=== PATIENT | male | born 1960 | race Caucasian/White ===

== ENCOUNTER → 2019-06-22 12:09 | Outpatient (BNVA) | payer OTHER, SELFPAY | PROVIDERS: Family Provider Nurse Practitioner; PCP Nurse Practitioner; Visit Provider Nurse Practitioner Family | DX: R07.9 Chest pain, unspecified (principal); E11.9 Type 2 diabetes mellitus without complications; Z23 Encounter for immunization; M54.5 Low back pain; E55.9 Vitamin D deficiency, unspecified; F41.9 Anxiety disorder, unspecified; I10 Essential (primary) hypertension; G89.29 Other chronic pain; M25.562 Pain in left knee; M25.512 Pain in left shoulder; K58.0 Irritable bowel syndrome with diarrhea; M1A.09X0 Idiopathic chronic gout, multiple sites, without tophus (tophi); F32.9 Major depressive disorder, single episode, unspecified; R39.11 Hesitancy of micturition; G47.9 Sleep disorder, unspecified | CPT/HCPCS: 80053; 80061; 81003; 83036; 84443; 85025 ==

== ENCOUNTER 2019-06-28 07:39 | Outpatient (CLI) | payer OTHER, SELFPAY ==
--- NOTE | 2019-06-28 08:04 | XR_ITS ---
WS: [id number] LEFT KNEE: 3 VIEW(S) TECHNIQUE: AP, oblique(s) and lateral. HISTORY: chronic left knee pain COMPARISON: None available. No fracture or dislocation. No joint space narrowing or osteophytes. No joint effusion. No soft tissue abnormality. XR/XR knee LT 3V* [id number] IMPRESSION: Normal LEFT knee.
--- NOTE | 2019-06-28 08:04 | XRR_ITS ---
PROCEDURE INFORMATION: Exam: XR Chest, 2 Views Exam date and time: 06/28/2019 8:29 AM Age: 58 years old Clinical indication: Chest pain; Type not specified; Patient HX: Knot on left knee, shoulder pain, no chest complaints per patient TECHNIQUE: Imaging protocol: XR of the chest Views: 2 views. COMPARISON: No relevant prior studies available. FINDINGS: Lungs: Unremarkable. No consolidation. Pleural space: Unremarkable. No pleural effusion. No pneumothorax. Heart/Mediastinum: Unremarkable. No cardiomegaly. Bones/joints: Unremarkable. XR/XR chest 2V* [id number] IMPRESSION: No acute findings.
--- NOTE | 2019-06-28 08:04 | XR_ITS ---
WS: [id number] LEFT SHOULDER: 2 VIEW(S) TECHNIQUE: Internal and external rotation. HISTORY: chronic left shoulder pain COMPARISON: None available. No fracture or dislocation or soft tissue abnormality. Mild narrowing of the AC joint. There is also very mild narrowing of the glenohumeral joint. XR/XR shoulder LT min 2V* [id number] IMPRESSION: Mild AC joint and glenohumeral joint arthritis.
== END 2019-06-28 07:40 | disposition home or self-care (01) ==
LOC: RAD 07:45
PROVIDERS: Family Provider Nurse Practitioner; PCP Nurse Practitioner; Visit Provider Nurse Practitioner Family
DX: M13.812 Other specified arthritis, left shoulder (principal); M25.562 Pain in left knee; G89.29 Other chronic pain; R07.9 Chest pain, unspecified
CPT/HCPCS: 71046; 73030; 73562

== ENCOUNTER 2019-07-19 11:45 | Outpatient (CLI) | payer OTHER, SELFPAY ==
--- NOTE | 2019-07-19 16:00 | MR_ITS ---
WS: [id number] MRI of the left knee, 07/19/2019 Clinical Data: knee pain Comparison: None. Findings: The anterior and posterior cruciate ligaments are intact without tear. The medial and lateral meniscu s show no tears. There are no bone bruises present. There are no osteochondral fractures. The medial and lateral collateral ligaments are intact without strain or tear. The quadriceps tendon and patellar tendon show no abnormalities. The patella is intact without displacement or chondromalac ia. No Hernandez's cyst is seen. There are varicose veins in the anterior lateral aspect of the subcutane ous tissue of the knee joint MR/MR knee LT wo con* [id number] Impression: 1. Negative for ligamentous or meniscal tears. 2. Negative for bone bruise or osteochondral fracture. 3. 3. Varicose veins in anterior medial subcutaneous tissue of the left knee.
== END 2019-07-19 11:46 | disposition home or self-care (01) ==
LOC: RADSHAW 11:45
PROVIDERS: Family Provider Nurse Practitioner; PCP Nurse Practitioner Family; Visit Provider Orthopaedic Surgery
DX: M23.92 Unspecified internal derangement of left knee (principal); I83.92 Asymptomatic varicose veins of left lower extremity
CPT/HCPCS: 73721

== ENCOUNTER 2019-10-12 12:09 | Outpatient (CLI) | payer OTHER, SELFPAY ==
--- NOTE | 2019-10-12 12:14 | ECG_ITS ---
NAME OF STUDY: TREADMILL STRESS TEST INDICATION: Chest Pain EXERCISE DATA: The patient was exercised by Jose Guadalupe protocol. Baseline heart rate was 95 beats per minute. Baseline blood pressure was 112/68 millimeters of mercury. Target heart rate was 164 beats per minute. Maximum heart rate achieved was 148, which was 90 % of the target heart rate. Maximum blood pressure was 163/83 millimeters of mercury. Total exercise time was 4 minutes 48 seconds. Maximum METs achieved was 7.0, maximum VO2 was 24.5. The reason for ending the test was maximum effort achieved. The patient complained of shortness of breath during the stress test, which then resolved at the end of the test. ELECTROCARDIOGRAM: BASELINE: Sinus rhythm, normal axis, no significant ST-T changes at the baseline noted. EXERCISE: At the peak exercise level, no significant ST-T changes suggestive of ischemia noted. RECOVERY: During the recovery period, heart rate dropped appropriately. No significant ST-T changes in the recovery suggestive of ischemia noted. CONCLUSION: 1. Exercise capacity poor. 2. Heart rate response was appropriate. 3. Blood pressure response was appropriate. 4. Symptoms not suggestive of ischemia. 5. Electrocardiogram portion of the stress test was not suggestive of ischemia. 6. Nuclear scan will be documented separately. Please note that due to underachievement METs and poor exercise capacity specificity and sensitivity EKG portion of the stress is of low probability Electronically Signed On 10-13-2019 18:17:18 CDT by Bassam Davis M.D. [id number]
[2019-10-12 12:16] VITALS: BMI 38.2
[2019-10-12 12:47] VITALS: BP 144/83; PULSE 99
== END 2019-10-12 12:10 | disposition home or self-care (01) ==
LOC: CDL 12:09
PROVIDERS: PCP Nurse Practitioner; Visit Provider Internal Medicine Cardiovascular Disease
DX: R07.9 Chest pain, unspecified (principal)
CPT/HCPCS: 93017

== ENCOUNTER → 2019-11-23 10:45 | Outpatient (BNVA) | payer OTHER, SELFPAY | PROVIDERS: PCP Nurse Practitioner; Visit Provider Nurse Practitioner Family | DX: E11.69 Type 2 diabetes mellitus with other specified complication (principal); M1A.09X0 Idiopathic chronic gout, multiple sites, without tophus (tophi); K58.0 Irritable bowel syndrome with diarrhea; I10 Essential (primary) hypertension; R07.9 Chest pain, unspecified; G25.81 Restless legs syndrome; F41.9 Anxiety disorder, unspecified; F32.9 Major depressive disorder, single episode, unspecified; N41.0 Acute prostatitis; R39.11 Hesitancy of micturition | CPT/HCPCS: 80053; 80061; 81000; 83036; 84443; 85025 ==

== ENCOUNTER → 2020-05-03 16:23 | Outpatient (BNVA) | payer OTHER, SELFPAY | PROVIDERS: Absent Provider Family Medicine; PCP Nurse Practitioner; Visit Provider Nurse Practitioner | DX: E11.69 Type 2 diabetes mellitus with other specified complication (principal); M10.9 Gout, unspecified; M1A.09X0 Idiopathic chronic gout, multiple sites, without tophus (tophi); E55.9 Vitamin D deficiency, unspecified; K58.0 Irritable bowel syndrome with diarrhea; I10 Essential (primary) hypertension; F41.9 Anxiety disorder, unspecified; G25.81 Restless legs syndrome; R39.11 Hesitancy of micturition | CPT/HCPCS: 80053; 80061; 82043; 82306; 83036; 84443; 84550 ==

== ENCOUNTER 2020-10-05 11:41 | Outpatient (CLI) | payer OTHER, SELFPAY ==
--- NOTE | 2020-10-05 11:55 | XR_ITS ---
WS: [id number] Cervical spine, 4 views, 10/05/2020 Clinical Data: M54.2 - Cervicalgia Comparison: Cervical spine, 07/23/2010. Findings: No compression fractures are seen. The disc heights are normal. There are calcifications in the anterior longitudinal ligaments at C4-C5, C5-C6 and C6-C7. There is no prevertebral soft tissue swelling. The odontoid is unremarkable. The soft tissues of the neck and the lung apices are normal. XR/XR cervical spine 3V* [id number] Impression: Calcification of the anterior longitudinal ligaments from C4 through C7.
== END 2020-10-05 11:42 | disposition home or self-care (01) ==
PROVIDERS: PCP Nurse Practitioner; Visit Provider Nurse Practitioner Family
DX: M54.2 Cervicalgia (principal); R29.898 Other symptoms and signs involving the musculoskeletal system
CPT/HCPCS: 72040; 80053; 80061; 82306; 83036; 84443; 84484; 85025; G0103

== ENCOUNTER 2020-12-24 14:06 | Outpatient (CLI) | payer OTHER, SELFPAY ==
[2020-12-24 14:05] VITALS: BP 121/73; PULSE 76; RESP 18; TEMP 36.8; O2SAT 96; BMI 40.3
[2020-12-24 14:25] VITALS: BP 117/75; PULSE 77; RESP 17; TEMP 36.6; O2SAT 94
[2020-12-24 15:25] VITALS: BP 118/73; PULSE 72; RESP 18; TEMP 36.6; O2SAT 94
--- NOTE | 2020-12-24 15:58 | AMB.MCA ---
Patient Information Symptom onset date: 12/22/20 Severity: mild Treatment prior to arrival: none [facility] COVID test results: No Data to Display outside results available, scanned Criteria/Plan Inclusion/Exclusion Criteria age >/= 12 years, weight >/= 40kg /88lbs, symptom onset less than 10 days ago and + direct Sars-Cov-2 test less than 7-10 days ago diabetes not requiring hospitalization, not requiring oxygen (if not chronically on oxygen) and no increase oxygen requirement (if chronically on oxygen) Patient education patient/caregiver received/reviewed fact sheet, Emergency Use Authorization/unapproved drug status discussed with patient/caregiver, alternatives to this treatment discussed with patient/caregiver, risks and benefits of medication reviewed with patient/caregiver, patient/caregiver given opportunity for questions, which were answered and patient/caregiver consents to receiving Monoclonal Antibody Treatment Plan for treatment Meets criteria for Monoclonal Antibody infusion Ordering Monoclonal Antibody infusion for today
== END 2020-12-24 14:07 | disposition home or self-care (01) ==
PROVIDERS: PCP Nurse Practitioner; Visit Provider Hospitalist
DX: U07.1 COVID-19 (principal)
CPT/HCPCS: 96365

== ENCOUNTER → 2021-01-02 13:59 | Outpatient (BNVA) | payer OTHER, SELFPAY | PROVIDERS: PCP Nurse Practitioner; Visit Provider Nurse Practitioner | DX: F41.9 Anxiety disorder, unspecified (principal); F32.9 Major depressive disorder, single episode, unspecified; G25.81 Restless legs syndrome; M1A.09X0 Idiopathic chronic gout, multiple sites, without tophus (tophi); E11.69 Type 2 diabetes mellitus with other specified complication; R39.11 Hesitancy of micturition; Z12.11 Encounter for screening for malignant neoplasm of colon; E55.9 Vitamin D deficiency, unspecified; I10 Essential (primary) hypertension; K58.0 Irritable bowel syndrome with diarrhea | CPT/HCPCS: 80053; 80061; 82306; 83036; 84443; 85025 ==

== ENCOUNTER 2021-01-16 10:42 | Outpatient (CLI) | payer OTHER, SELFPAY ==
--- NOTE | 2021-01-16 11:00 | CT_ITS ---
WS: [id number] CTA HEAD AND NECK TECHNIQUE: Contrast enhanced CTA of the head and neck with coronal and sagittal reformatted images an d maximum intensity projection (MIP) images. NASCET criteria utilized. CLINICAL INFORMATION: R41.3 - Other amnesia COMPARISON: None. DLP: 2773.[address] scans at [facility] use at least one of these dose optimization techniques: automat ed exposure control; mA and/or kV adjustment per patient size (includes targeted exams where dose is matched to clinical indication); or iterative reconstruction. FINDINGS: Mild small vessel changes. Mild parenchymal volume loss. Intracranial vascular calcification. No evid ence of intracranial hemorrhage or mass effect. Mastoid air cells and paranasal sinuses are well aera sandoval. Small retention cyst right sphenoid sinus. A few prominent cervical lymph nodes nonspecific but likely reactive. RIGHT: Right common carotid artery is patent. No significant right ICA stenosis. Minimal calcified at heromatous disease right carotid bulb. No significant right ICA stenosis. Right ICA is patent to the skull base. LEFT: Left common carotid artery is patent. Mild to moderate calcified atheromatous plaque left carot id bulb extending into the ICA with less than 50% stenosis. Left ICA is patent to the skull base. INTRACRANIAL CTA: Left dominant vertebral artery. Smaller but patent right vertebral artery. Basilar artery is patent. Normal vascularity to the [employer] territory bilaterally. Both ICAs are patent at the skull base with cavernous carotid calcification. Normal vascularity to th e ANNABELLA and MCA territories bilaterally. No evidence of flow-limiting stenosis or aneurysm. CT/CT angio headneck* [id number] IMPRESSION: 1. No evidence of intracranial hemorrhage or mass effect on the noncontrast he ad CT. 2. No significant right ICA stenosis. Tiny amount of calcification right carot id bulb. 3. Left ICA stenosis less than 50%. Mild to moderate calcified atheromatous pl aque left carotid bulb and proximal ICA. 4. Left dominant vertebral artery. Both vertebral arteries are patent. 5. No flow-limiting intracranial stenosis. Unremarkable intracranial CTA.
[2021-01-16] MEDS: iohexol 350 mg/mL 100 mL Btl IV (11:09)
== END 2021-01-16 10:43 | disposition home or self-care (01) ==
PROVIDERS: PCP Nurse Practitioner; Visit Provider Nurse Practitioner
DX: R41.3 Other amnesia (principal); R55 Syncope and collapse; I65.22 Occlusion and stenosis of left carotid artery
CPT/HCPCS: 70496; 70498; Q9967

== ENCOUNTER 2021-01-29 06:00 | Outpatient (RCR) | payer OTHER, SELFPAY | END 2021-02-15 23:59 | disposition home or self-care (01) | LOC: SPT 06:00 | PROVIDERS: PCP Nurse Practitioner; Referring Provider Nurse Practitioner; Visit Provider Nurse Practitioner | DX: R29.6 Repeated falls (principal) | CPT/HCPCS: 97110; 97112; 97162 ==

== ENCOUNTER 2021-02-16 06:00 | Outpatient (RCR) | payer OTHER, SELFPAY | END 2021-03-18 23:59 | disposition home or self-care (01) | LOC: SPT 06:00 | PROVIDERS: PCP Nurse Practitioner; Referring Provider Nurse Practitioner; Visit Provider Nurse Practitioner | DX: R29.6 Repeated falls (principal) | CPT/HCPCS: 97110; 97112 ==

== ENCOUNTER 2021-03-19 06:00 | Outpatient (RCR) | payer OTHER, SELFPAY | END 2021-04-17 23:59 | disposition home or self-care (01) | LOC: SPT 06:00 | PROVIDERS: PCP Nurse Practitioner; Referring Provider Nurse Practitioner; Visit Provider Nurse Practitioner | DX: R29.6 Repeated falls (principal) | CPT/HCPCS: 97110; 97112 ==

== ENCOUNTER 2021-04-18 12:31 | Outpatient (RCR) | payer OTHER, SELFPAY | END 2021-05-17 16:51 | disposition home or self-care (01) | LOC: SPT 12:31 | PROVIDERS: PCP Nurse Practitioner; Referring Provider Nurse Practitioner; Visit Provider Nurse Practitioner | DX: R29.6 Repeated falls (principal) | CPT/HCPCS: 97110; 97112 ==

== ENCOUNTER → 2021-05-04 10:42 | Outpatient (BNVA) | payer OTHER, SELFPAY | PROVIDERS: PCP Nurse Practitioner; Visit Provider Urology | DX: R36.1 Hematospermia (principal); N40.1 Benign prostatic hyperplasia with lower urinary tract symptoms | CPT/HCPCS: 81003 ==

== ENCOUNTER 2021-12-20 11:48 | Outpatient (CLI) | payer OTHER, SELFPAY ==
[2021-12-20 12:44] LABS: Creatinine Urine, Random 262 mg/dL (39-259)
[2021-12-20 12:57] LABS: Microalbum Creatinine Ratio Ur 405 mg/dL (0-20); Microalbumin Random Urine 106 ug/dL (0-20)
[2021-12-20 13:11] LABS: 25 Hydroxy Vitamin D 62 ng/mL (30-100); Alanine Aminotransferase 66 U/L (0-41); Albumin Level 4.2 g/dL (3.5-5.2); Alkaline Phosphatase 113 IU/L (40-130); Anion Gap 16.1 (5-19); Aspartate Amino Transferase 43 U/L (0-40); Blood Urea Nitrogen 15 mg/dL (6-20); Calcium 9.6 mg/dL (8.5-10.5); Carbon Dioxide 23 mmol/L (22-29); Chloride 100 mmol/L (98-107); Chol HDL Ratio 6.26 mg/dL (1.0-5.00); Cholesterol 213 mg/dL (0-200); Globulin 3.1 g/dL (1.3-4.6); Glomerular Filtration Rate 76.5 mL/min (90-130); Glucose 121 mg/dL (65-115); HDL Cholesterol 34 mg/dL (60-100); LDL Cholesterol Calculated 140 mg/dL (50-129); Osmolality Calculated 282 mOsm/kg (285-295); Potassium 4.1 mmol/L (3.5-5.1); Sodium 135 mmol/L (136-145); Total Bilirubin 0.6 mg/dL (0.15-1.2); Total Protein 7.3 g/dL (6.6-8.7); Triglycerides 195 mg/dL (0-150); Uric Acid 3.8 mg/dL (3.4-7.0); VLDL Cholestrol Calculation 39 mg/dL (0-30)
[2021-12-20 13:13] LABS: Estmated Average Glucose 128; Hemoglobin A1C 6.1 % (4.0-6.0)
== END 2021-12-20 11:49 | disposition home or self-care (01) ==
LOC: LAB 11:51
PROVIDERS: PCP Nurse Practitioner; Visit Provider Nurse Practitioner
DX: E11.69 Type 2 diabetes mellitus with other specified complication (principal); M1A.09X0 Idiopathic chronic gout, multiple sites, without tophus (tophi)
CPT/HCPCS: 80053; 80061; 82044; 82306; 83036; 84550

== ENCOUNTER → 2022-04-18 16:17 | Outpatient (BNVA) | payer OTHER, SELFPAY | PROVIDERS: PCP Nurse Practitioner; Visit Provider Nurse Practitioner | DX: I10 Essential (primary) hypertension (principal); E11.69 Type 2 diabetes mellitus with other specified complication; F41.9 Anxiety disorder, unspecified; G25.81 Restless legs syndrome; F32.9 Major depressive disorder, single episode, unspecified; Z87.442 Personal history of urinary calculi; E78.2 Mixed hyperlipidemia; R26.81 Unsteadiness on feet; E55.9 Vitamin D deficiency, unspecified; Z23 Encounter for immunization; G20 Parkinson's disease | CPT/HCPCS: 80053; 80061; 81000; 82043; 82306; 82607; 83036; 84443 ==

== ENCOUNTER → 2022-07-22 15:58 | Outpatient (BNVA) | payer OTHER, SELFPAY | PROVIDERS: PCP Nurse Practitioner; Visit Provider Nurse Practitioner | DX: Z87.442 Personal history of urinary calculi (principal); I10 Essential (primary) hypertension; M1A.09X0 Idiopathic chronic gout, multiple sites, without tophus (tophi); E78.2 Mixed hyperlipidemia; G25.81 Restless legs syndrome; N18.2 Chronic kidney disease, stage 2 (mild); E11.69 Type 2 diabetes mellitus with other specified complication | CPT/HCPCS: 80053; 81000; 83036; 85025 ==

== ENCOUNTER 2022-09-02 12:28 | Outpatient (CLI) | payer OTHER, SELFPAY ==
--- NOTE | 2022-09-02 12:43 | XR_ITS ---
WS: [id number] Left shoulder, 3 views, 09/02/2022 Clinical Data: M25.512 - Pain in left shoulder Comparison: Left shoulder, 06/28/2019. Findings: No fractures or dislocations are seen. The AC joint demonstrates mild narrowing.. There is minimal os teoarthritic change of the inferior glenoid rim. The adjacent left clavicle, left scapula and ribs ar e normal. The soft tissues are unremarkable. 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
--- NOTE | 2022-09-02 12:45 | USCV_ITS ---
Alec Parr Age: 61 Gender: M : 1960 Exam Date: 09/02/2022 13:31 Ordering Phys: Mendoza Kelley MD ([email or web address]) Technologist: Exam Location: [facility] [place] Indication: BP: / HR: 59 Rhythm: Sinus Technical Quality: Adequate MEASUREMENTS (Male / Female) Normal Values 2D ECHO LV Diastolic Diameter PLAX 4.1 cm 4.2 - 5.9 / 3.9 - 5.3 cm LV Systolic Diameter PLAX 2.9 cm IVS Diastolic Thickness 1.1 cm 0.6 - 1.0 / 0.6 - 0.9 cm IVS Systolic Thickness 1.9 cm LVPW Diastolic Thickness 1.1 cm 0.6 - 1.0 / 0.6 - 0.9 cm LVPW Systolic Thickness 1.5 cm LVOT Diameter 2.0 cm LV Ejection Fraction 2D Teich 42.9 % LV Ejection Fraction MOD 2C 67.9 % LV Ejection Fraction 2C AL 68.6 % LA Diameter 3.6 cm IVC Diameter 1.1 cm M-MODE Aortic Annulus Diameter 3.5 cm LA Ao Ratio MM 1.1 MV E Point Septal Separation 1.1 cm DOPPLER AV Peak Velocity 118.0 cm/s LVOT Peak Velocity 102.0 cm/s AV Area Cont Eq vti 2.8 cm squared AV Area Cont Eq pk 2.8 cm squared MV Area PHT 4.0 cm squared Mitral E to A Ratio 1.1 MV E' Velocity 49.5 cm/s Mitral E to MV E' Ratio 9.5 Mitral E to LV E' Lateral Ratio 9.3 Mitral E to LV E' Septal Ratio 9.8 TR Peak Velocity 149.7 cm/s TR Peak Gradient 9.0 mmHg TV Peak E Velocity 88.0 cm/s Right Atrial Pressure 3.0 mmHg Pulmonary Artery Systolic Pressu 12.0 mmHg PV Peak Velocity 85.0 cm/s FINDINGS Left Ventricle Left ventricle is normal in size. LV systolic function is normal with EF of 55 to 60%. No regional wall motion abnormalities are seen. Diastolic function is normal. Right Ventricle Normal in size and function. Right Atrium Normal in size Left Atrium Normal in size Mitral Valve Structurally normal mitral valve. Mild mitral regurgitation. Aortic Valve Aortic valve is grossly normal. No significant stenosis or regurgitation. Tricuspid Valve Mild tricuspid regurgitation. Insufficient TR jet to calculate RVSP Pulmonic Valve Not well-visualized Pericardium Normal Aorta Normal in size IVC Appears to be normal CONCLUSIONS LV systolic function normal with EF of 55 to 60% Diastolic function is normal. Mild tricuspid regurgitation. Mild mitral regurgitation. No comparison studies are available Kevin Nolan MD (Electronically Signed) Final Date: 14 September 2022 15:29 S
== END 2022-09-02 12:29 | disposition home or self-care (01) ==
LOC: RAD 12:37
PROVIDERS: PCP Nurse Practitioner; Visit Provider Specialist
DX: M25.512 Pain in left shoulder (principal); I10 Essential (primary) hypertension; G47.33 Obstructive sleep apnea (adult) (pediatric); Z99.89 Dependence on other enabling machines and devices; E78.2 Mixed hyperlipidemia; R06.02 Shortness of breath; W18.30XA Fall on same level, unspecified, initial encounter; Y93.9 Activity, unspecified; Y92.019 Unspecified place in single-family (private) house as the place of occurrence of the external cause
CPT/HCPCS: 73030; 93306

== ENCOUNTER 2022-09-13 10:31 | Outpatient (CLI) | payer OTHER, SELFPAY ==
[2022-09-13 10:58] VITALS: BMI 40.3
--- NOTE | 2022-09-13 11:03 | ECG_ITS ---
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 Interpretive Statements NAME OF STUDY: LEXISCAN SESTAMIBI STRESS TEST INDICATION: Chest Pain/sob, PROCEDURE: At the baseline, the EKG revealed normal sinus rhythm with a poor R wave progression. Nonspecific T wave changes. The baseline heart was 61 bpm with a blood pressue of 124/80 mm of Hg Lexiscan was infused over a period of 20 seconds. A total of 0.4 milligrams of Lexiscan was infused. The stress phase was continued for a total of 5 minutes. Heart rate at the end of the stress phase was 74 bpm with a blood pressure 118/78 mm of Hg. The EKG at the peak infusion revealed no significant changes. Sestamibi was injected 20 seconds after the Lexiscan infusion. Heart rate at the end of the recovery phase was 72 bpm with a blood pressure of 111/76mm of Hg. CONCLUSION: 1. No significant EKG changes with the LexiScan infusion 2. No LexiScan induced chest pain or cardiac arrhythmia 3. Normal blood pressure and heart rate response 4. Sestamibi/sestamibi perfusion scan pending; see separate report. Electronically Signed On 09-15-2022 23:09:52 CDT by Varsha Kellogg M.D. [id number]
--- NOTE | 2022-09-13 11:04 | NMCV_ITS ---
NM vance perf SPECT r/s* [id number] Alec Parr Age: 61 Gender: M : 1960 Exam Date: 09/13/2022 11:42 Ordering Phys: Mendoza Kelley MD ([email or web address]) Technologist: ZOE Celis Exam Location: [facility] Indications: CHEST PAIN, SHORTNESS OF BREATH STRESS TEST Please see separate stress test report in [facility] for full findings IMAGE PROTOCOL Rest/Stress 1 Lexiscan Day Radiopharmaceutical Dose (mCi) Administration Site Administered by Rest: Tc-99m 10.8 IV ZOE Mccallum Sestamibi Stress:Tc-99m 32.9 IV ZOE Mccallum Sestamibi Rest: 13-Sep-2022 60 Discovery 630 Stress: 13-Sep-2022 30 Discovery 630 0.4mg Lexiscan. Supine position only as patient was unable to lay prone. SPECT RESULTS Technical Quality: Excellent Raw Data Analysis: Normal Image Corrections: No attenuation or motion correction applied Summed Stress Score: 0 Summed Rest Score: 0 Summed Difference Score: 0 PERFUSION FINDINGS Fairly uniform myocardial tracer uptake with no significant perfusion abnormalities FUNCTIONAL RESULTS (calculated via Gated SPECT) Stress Image LV EF (%): 70 Stress EDV (mL):91 TID: 1.08 Stress ESV (mL):27 FUNCTIONAL FINDINGS: Segmental wall motion analysis revealing no gross wall motion abnormalities IMPRESSIONS 1. Unremarkable Myocardial perfusion imaging 2. Normal LV ejection fraction of 70% 3. LV wall motion analysis revealing no gross wall motion abnormalities. 4. Normal LV volume Low probability for coronary ischemia, based on the above findings Dr Varsha Kellogg MD [facility] (Electronically Signed) Final Date: 13 September 2022 17:08 S
[2022-09-13] MEDS: regadenoson 0.4 Mg/5 ml Syringe IVP (12:09)
[2022-09-13 12:33] VITALS: BP 111/75; PULSE 75
== END 2022-09-13 10:32 | disposition home or self-care (01) ==
LOC: CDL 10:32
PROVIDERS: PCP Nurse Practitioner; Visit Provider Specialist
DX: R07.9 Chest pain, unspecified (principal); R06.02 Shortness of breath
CPT/HCPCS: 36415; 78452; 93017; 96374; A9500; J2785

== ENCOUNTER 2023-03-13 16:16 | Outpatient (CLI) | payer OTHER, SELFPAY ==
[2023-03-13 16:57] LABS: Basophils # 0.1 10^3/uL (0.0-0.1); Eosinophils # 0.3 10^3/uL (0.0-0.8); Eosinophils % 2.3 %; Hematocrit 56.6 % (37-53); Lymphocytes # 2.1 10^3/uL (0.8-4.8); Lymphocytes % 18.8 %; Mean Corpuscular HGB Conc 33.2 g/dL (30-55); Mean Corpuscular Hemoglobin 29.6 pg (27-33); Mean Platelet Volume 10.2 fL (7.4-10.4); Monocytes % 9.2 %; Neutrophils # 7.59 10^3/uL (1.8-7.7); Neutrophils % 68.2 %; Nucleated Red Blood Cells % 0 %; Platelet Count 297 10^3/cmm (157-399); Red Blood Count 6.36 10^6/uL (3.85-5.65); Red Cell Distribution Width 14.2 % (12.1-15.1); White Blood Count 11.11 10^3/uL (3.29-11.43)
[2023-03-13 17:37] LABS: Alanine Aminotransferase 42 U/L (0-41); Albumin Level 4.5 g/dL (3.5-5.2); Alkaline Phosphatase 114 U/L (40-130); Aspartate Amino Transferase 29 U/L (0-40); Blood Urea Nitrogen 19 mg/dL (8-23); Calcium 10.9 mg/dL (8.5-10.5); Carbon Dioxide 28 mmol/L (22-29); Chloride 98 mmol/L (98-107); Creatine Phosphokinase 69 U/L (39-308); Globulin 4.2 g/dL (1.3-4.6); Glomerular Filtration Rate 56.3 mL/min (90-130); Glucose 108 mg/dL (65-115); Osmolality Calculated 287 mOsm/kg (285-295); Sodium 137 mmol/L (136-145); Thyroid Stimulating Hormone 2.63 uIU/mL (0.27-4.20); Total Bilirubin 0.6 mg/dL (0.15-1.2); Total Protein 8.7 g/dL (6.6-8.7); Vitamin B12 1422 pg/mL (232-1245)
[2023-03-13 17:38] LABS: Bilirubin Urine Neg (Negative); Blood Urine 2+ (Negative); Glucose Urine UA 4+ (Normal); Ketones Urine Negative (Negative); Nitrate Urine Positive (Negative); Protein Urine 1+ (Negative); Urine Appearance Hazy (CLEAR); Urine Color Yellow (Yellow); Urobilinogen Urine Norm (Negative); pH Urine 5 (5-7)
[2023-03-13 17:39] LABS: Add Urine Microscopic? YES; Bacteria Urine 2+ /hpf; Leukocyte Esterase Urine Trace (Negative); RBC Urine 0-4 /hpf (0-2); Squamous Epithelial Cell Urine 0-4 /hpf (0-5); WBC Urine 25-40 /hpf (0-5)
[2023-03-13 17:40] LABS: Add Urine Culture? Yes
== END 2023-03-13 16:17 | disposition home or self-care (01) ==
LOC: LAB 16:28
PROVIDERS: PCP Nurse Practitioner; Visit Provider Psychiatry & Neurology Neurology
DX: R53.1 Weakness (principal); R41.82 Altered mental status, unspecified
CPT/HCPCS: 36415; 80053; 81001; 82550; 82607; 84443; 85025; 87077; 87086; 87186

== ENCOUNTER 2023-03-15 09:19 | Emergency (ER) | payer OTHER, SELFPAY ==
[2023-03-15 09:28] VITALS: BP 150/82; PULSE 84; RESP 16; TEMP 36.9; O2SAT 95; BMI 42.7
--- NOTE | 2023-03-15 09:41 | ED_ITS ---
HPI - Male Genitourinary General: Chief complaint: Urogenital-Male Stated complaint: diagnosed UTI, unable to get antibiotics Time Seen by Provider: 03/15/23 09:41 History of Present Illness: 62-year-old male presents to the emergency department with his spouse. The patient states that on he had outpatient laboratory evaluation done which demonstrated he had a urinary tract infection. He states that he had his physician at [facility] call him in a prescription to [facility] and when they attempted to pick it up they said the prescription was not called in. Patient is here today requesting a prescription for antibiotics. I have reviewed his laboratory findings which demonstrated 2+ bacteria in his urine, positive for nitrates and leukocytes. Associated symptoms: Reports dysuria Review of Systems General: Reports: 10 or more systems reviewed and unremarkable except in HPI and below : Reports: difficulty urinating, dysuria, urinary frequency, urinary urgency and urinary hesitancy PFSH ED PFSH: Medical History Anxiety and depression BPH loc w urin obs/LUTS CKD (chronic kidney disease) stage 2, GFR 60-89 ml/min Erectile dysfunction Essential hypertension Gout Hematospermia Hesitancy History of kidney stones IBS (irritable bowel syndrome) Mixed hyperlipidemia KAVITHA on CPAP Parkinson disease Restless leg syndrome Stroke Vitamin D deficiency Surgical History History of esophagogastroduodenoscopy (EGD) (~2012) Hx of colonoscopy (~2012) S/P eye surgery S/P skin and subcutaneous tissue surgery Squamous cell cancer Family History Father , age62 Diabetes Mother , AT AGE 72 Hypertension Lung disease COPD Social History Smoking and tobacco/nicotine status: never used tobacco/nicotine Second hand smoke exposure: No Alcohol intake: never Substance/Drug Use: unknown Adopted: No Caregiver/support person: No Lives independently: Yes Household members: spouse Housing: House Marital status: Number of children: 3 Current occupational status: disabled Current occupation: [employer] TEMPORARILY DISABLED Do you think of yourself as: Straight/Heterosexual Current gender identity: Male Physical Exam Const: COMMON NORMALS: no acute distress, patient oriented x3 and alert HENMT: COMMON NORMALS: normocephalic, atraumatic, Normal nasal mucous membranes and turbinates present and moist oral mucous membranes HEAD & SCALP: normocephalic and atraumatic NOSE: Normal nasal mucous membranes and turbinates present Eye: COMMON NORMALS: Equal, round and reactive pupils present and EOMs intact bilaterally PUPIL: Yes Equal, round and reactive pupils present Neck/C-Spine: COMMON NORMALS: full ROM, supple and no meningeal signs Resp: COMMON NORMALS: normal respiratory effort, No retractions and clear to auscultation bilaterally AUSCULTATION: clear to auscultation bilaterally Cardio: COMMON NORMALS: regular rate, regular rhythm, S1 normal heart sound present and Peripheral pulses 2+ throughout RATE: regular rate RHYTHM: regular rhythm HEART SOUNDS: S1 normal heart sound present PERIPHERAL PULSES: Peripheral pulses 2+ throughout GI: COMMON NORMALS: Normal to inspection, nondistended, normoactive bowel sounds present, Soft to palpation and non-tender PALPATION: Yes Soft to palpation : COMMON NORMALS: Yes no CVA tenderness BLADDER/KIDNEY EXAM: Yes no CVA tenderness Back/Pelvis: COMMON NORMALS: no CVA tenderness Extremity: COMMON NORMALS: normal to inspection, full ROM and capillary refill normal Neuro: COMMON NORMALS: patient oriented x3, moves all extremities and no focal motor deficits SENSORIUM/ORIENTATION: Yes alert MENINGEAL SIGNS: Yes no meningeal signs Psych: COMMON NORMALS: mental status grossly normal, Normal thought process present and cooperative THOUGHT PROCESS: Normal thought process present Skin: COMMON NORMALS: no rashes or lesions noted GENERAL SKIN EXAM: no rashes or lesions noted Course Vital Signs: Vital signs: Vital Signs Temperature 98.4 F 03/15/23 09:28 Pulse Rate 84 03/15/23 09:28 Respiratory Rate 16 03/15/23 09:28 Blood Pressure 150/82 03/15/23 09:28 Pulse Oximetry 95 03/15/23 09:28 Oxygen Delivery Me thod Room Air 03/15/23 09:28 [facility] - Male Medical Decision Making Physical exam completed, I reviewed the patient's previous laboratory evaluation obtained on his creatinine is 1.33 GFR 56.3,, urinalysis demonstrated hazy appearance, 1+ protein, 4+ glucose, 2+ blood in the urine. Nitrate positive, leukocyte positive, 25-40 WBCs per high-power field and 2+ bacteria. These findings are consistent with urinary tract infection and given the patient was recently seen by his primary care provider I will provide him IM antibiotics in the emergency department as well as provide him a written prescription to complete his antibiotic regimen and recommend follow-up with his PCP. Medical Records I reviewed the patient's medical records. Lab Data I reviewed the patient's lab results. I reviewed the patient's urinalysis as well as his CBC and chemistry from 03/13/2023. No radiology studies performed this visit Discharge Plan Discharge Patient Disposition: Home Clinical Impression: Acute UTI Condition: Stable Prescriptions: New levofloxacin 750 mg tablet 750 mg PO DAILY 14 Days Qty: 14 0RF No Action nitroglycerin 0.4 mg tablet, sublingual 0.4 mg SUBLINGUAL Q5M PRN (Reason: chest pain) 90 Days Qty: 30 6RF Rx Instructions: until response; do not exceed 3 doses per episode cholecalciferol (vitamin D3) 25 mcg (1,000 unit) capsule 25 mcg PO DAILY primidone 50 mg tablet 50 mg PO .HS Galzin 50 mg (zinc) capsule 50 mg PO DAILY ascorbic acid (vitamin C) 1,000 mg tablet 2 g PO DAILY aspirin [Adult Aspirin Regimen] 81 mg tablet,delayed release (DR/EC) 162 mg PO DAILY (DME) CPAP See Rx Instructions .ROUTE .MEDSUPPLY Qty: 1 0RF Rx Instructions: As directed ropinirole 2 mg tablet 4 mg PO .at bedtime Rx Instructions: dose increase clonazepam 0.5 mg tablet 0.5 mg PO .HS fluoxetine [Prozac] 40 mg capsule 40 mg PO BID 21 Days Qty: 42 7RF (DME) DME: Walker Unit See Rx Instructions .ROUTE .MEDSUPPLY Qty: 1 0RF Rx Instructions: Code E0143 and E0156 walker 4 wheels and seat (DME) Shower chair See Rx Instructions .Route .MEDSUPPLY Qty: 1 0RF Rx Instructions: As directed hydrochlorothiazide 12.5 mg capsule 12.5 mg PO .COMPLEX 21 Days Qty: 21 7RF Rx Instructions: 12.5 mg orally M,W, F; allopurinol 300 mg tablet 300 mg PO BID 21 Days Qty: 42 7RF rosuvastatin [Crestor] 10 mg tablet 10 mg PO DAILY Qty: 21 7RF lidocaine 5 % adhesive patch,medicated 2 patch topical DAILY Qty: 60 5RF Rx Instructions: leave on most painful area for up to 12 hrs Farxiga 10 mg tablet 10 mg PO QAM Qty: 21 7RF tamsulosin 0.4 mg capsule See Rx Instructions .ROUTE .COMPLEX Qty: 30 12RF Dose Instruction: TAKE 1 CAPSULE BY MOUTH AT BEDTIME Rx Instructions: TAKE 1 CAPSULE BY MOUTH AT BEDTIME amlodipine 10 mg tablet 10 mg PO DAILY Qty: 90 3RF Discharge Orders: Discharge ED (Routine); Ordered 03/15/23 Ordered By: Steven Haney Referrals: Kayden Duarte, FOOT SPECIALIST-C [Primary Care Provider] - Discharge Diet: Advance as tolerated Discharge Activity: Resume usual activity Coding Level of Care Code ED Hand Iii Cutter for Jamaal Morales
[2023-03-15 10:23] VITALS: BP 150/82; PULSE 77; RESP 16; O2SAT 96
[2023-03-15] MEDS: cefTRIAXone 1,000 MG in water for injection-sterile 2.1 ML 1 MG IM (10:24)
[2023-03-15 10:39] VITALS: BP 150/82; PULSE 77; RESP 16; O2SAT 96
== END 2023-03-15 10:43 | disposition home or self-care (01) ==
PROVIDERS: Emergency Provider Internal Medicine; PCP Nurse Practitioner
DX: N39.0 Urinary tract infection, site not specified (principal); Z79.82 Long term (current) use of aspirin; I12.9 Hypertensive chronic kidney disease with stage 1 through stage 4 chronic kidney disease, or unspecified chronic kidney disease; N18.2 Chronic kidney disease, stage 2 (mild); E78.2 Mixed hyperlipidemia; G20.A1 Parkinson's disease without dyskinesia, without mention of fluctuations; Z86.73 Personal history of transient ischemic attack (TIA), and cerebral infarction without residual deficits
CPT/HCPCS: 96372; 99284; J0696

== ENCOUNTER 2024-02-02 21:51 | Emergency (ER) | payer OTHER, SELFPAY ==
[2024-02-02 21:56] VITALS: BP 135/70; PULSE 75; RESP 18; TEMP 36.6; O2SAT 92; BMI 42.7
[2024-02-02 22:53] VITALS: BP 135/65; PULSE 69; RESP 20; O2SAT 92
[2024-02-02 23:23] VITALS: BP 122/75; PULSE 67; O2SAT 93
[2024-02-02 23:39] LABS: Basophils # 0.1 10^3/uL (0.0-0.1); Basophils % 0.8 %; Eosinophils # 0.2 10^3/uL (0.0-0.8); Eosinophils % 1.6 %; Hematocrit 54.3 % (37-53); Lymphocytes % 16.7 %; Mean Corpuscular HGB Conc 33.5 g/dL (30-55); Mean Corpuscular Hemoglobin 29.8 pg (27-33); Mean Corpuscular Volume 88.9 fl (82-101); Mean Platelet Volume 10.3 fL (7.4-10.4); Monocytes % 8.5 %; Neutrophils % 72.1 %; Nucleated Red Blood Cells % 0 %; Platelet Count 249 10^3/cmm (157-399); Red Blood Count 6.11 10^6/uL (3.85-5.65); Red Cell Distribution Width 14.5 % (12.1-15.1); White Blood Count 11.94 10^3/uL (3.29-11.43)
--- NOTE | 2024-02-02 23:44 | ED_ITS ---
HPI - Male Genitourinary 2 General: Chief complaint: Urogenital-Male Stated complaint: no urine out put Time Seen by Provider: 02/02/24 22:38 History of Present Illness: Patient presents to the ER with dark urination. Patient says he has kidney failure and ALS and just returned from a trip from [place] and usually takes him 2 or 3 days to bounce back. But patient stating he feels like he needs to urinate but is unable to and his urine is a lot darker than normal. Related Data Home Medications Medication Instructions Recorded Confirmed cholecalciferol (vitamin D3) 25 25 mcg PO DAILY 01/01/21 08/12/22 mcg (1,000 unit) capsule ascorbic acid (vitamin C) 1,000 mg 2 g PO DAILY 03/20/21 08/12/22 tablet primidone 50 mg tablet 50 mg PO .HS 03/20/21 08/12/22 zinc acetate 50 mg (zinc) capsule 50 mg PO DAILY 03/20/21 08/12/22 (Galzin) aspirin 81 mg tablet,delayed 162 mg PO DAILY 08/12/22 08/12/22 release (Adult Aspirin Regimen) clonazepam 0.5 mg tablet 0.5 mg PO .HS 08/12/22 08/12/22 ropinirole 2 mg tablet 4 mg PO .at bedtime 08/12/22 08/12/22 Previous Rx's Medication Instructions Recorded CPAP #1 ea 08/07/21 nitroglycerin 0.4 mg sublingual 0.4 mg sublingual Q5M PRN chest 08/13/21 tablet pain 90 days #30 tabs DME: Walker #1 ea 04/18/22 Shower chair #1 ea 04/18/22 fluoxetine 40 mg capsule (Prozac) 40 mg PO BID 21 days #42 caps 04/18/22 dapagliflozin propanediol 10 mg 10 mg PO QAM #21 tabs 04/24/22 tablet (Farxiga) tamsulosin 0.4 mg capsule See Rx Instructions .Route 05/06/22 .COMPLEX #30 caps allopurinol 300 mg tablet 300 mg PO BID 21 days #42 tabs 07/22/22 hydrochlorothiazide 12.5 mg capsule 12.5 mg PO .COMPLEX 21 days #21 07/22/22 caps lidocaine 5 % topical patch 2 patch topical DAILY #60 ea 07/22/22 rosuvastatin 10 mg tablet (Crestor) 10 mg PO DAILY #21 tabs 07/22/22 amlodipine 10 mg tablet 10 mg PO DAILY #90 tabs 08/12/22 Allergies Allergy/AdvReac Type Severity Reaction Status Date / Time naproxen Allergy CYNDY-Anthonyll Verified 11/18/22 13:00 Lip/Tongue/Throat semaglutide [From Ozempic] AdvReac Intermediate stomach Verified 11/18/22 13:00 pain Review of Systems 2 General: Reports: 10 or more systems reviewed and unremarkable except in HPI and below PFSH ED 2 PFSH: Medical History CKD (chronic kidney disease) stage 2, GFR 60-89 ml/min Erectile dysfunction Hematospermia KAVITHA on CPAP BPH loc w urin obs/LUTS Stroke Parkinson disease Essential hypertension History of kidney stones Mixed hyperlipidemia Restless leg syndrome Anxiety and depression Hesitancy Vitamin D deficiency IBS (irritable bowel syndrome) Gout Surgical History S/P skin and subcutaneous tissue surgery Squamous cell cancer S/P eye surgery Hx of colonoscopy (~2012) History of esophagogastroduodenoscopy (EGD) (~2012) Family History Father , age62 Diabetes Mother , AT AGE 72 Hypertension Lung disease COPD Social History Smoking and tobacco/nicotine status: never used tobacco/nicotine Second hand smoke exposure: No Alcohol intake: never Substance/Drug Use: unknown Adopted: No Caregiver/support person: No Lives independently: Yes Household members: spouse Housing: House Marital status: Number of children: 3 Current occupational status: disabled Current occupation: [employer]/ TEMPORARILY DISABLED Do you think of yourself as: Straight/Heterosexual Current gender identity: Male Physical Exam 2 Const: COMMON NORMALS: no acute distress, average body habitus, patient oriented x3, no limitations, healthy appearing, alert and well nourished HENMT: COMMON NORMALS: normocephalic, atraumatic, hearing grossly normal bilaterally, external ears normal, Normal external nose present and moist oral mucous membranes HEAD & SCALP: normocephalic and atraumatic NOSE: Normal external nose present EXTERNAL EAR: Yes external ears normal Neck/C-Spine: COMMON NORMALS: no JVD Chest: COMMONS NORMALS: normal inspection of the chest and normal palpation of entire chest wall Resp: COMMON NORMALS: normal respiratory effort, No retractions, No use of accessory muscles and clear to auscultation bilaterally AUSCULTATION: clear to auscultation bilaterally Cardio: COMMON NORMALS: no JVD, regular rate, regular rhythm, S1 normal heart sound present, S2 normal heart sound present, No gallops present (Cardio), No clicks present (Cardio), No murmurs present (Cardio) and No rub (Cardio) R ATE: regular rate RHYTHM: regular rhythm HEART SOUNDS: S1 normal heart sound present and S2 normal heart sound present GI: COMMON NORMALS: Normal to inspection, nondistended, normoactive bowel sounds present, Soft to palpation, non-tender, No hepatosplenomegaly present and no masses PALPATION: Yes Soft to palpation and Yes No hepatosplenomegaly present Neuro: COMMON NORMALS: patient oriented x3 SENSORIUM/ORIENTATION: Yes alert Course 2 Vital Signs: Vital signs: Vital Signs Temperature 97.8 F 02/02/24 21:56 Pulse Rate 64 02/03/24 01:36 Respiratory Rate 18 02/03/24 01:36 Blood Pressure 133/74 02/03/24 01:36 Pulse Oximetry 93 02/03/24 01:36 Oxygen Delivery Me thod Mechanical Ventil ation 02/03/24 01:36 MDM - Male Medical Decision Making Number present pain included CBC CMP urinalysis, all essentially unremarkable except for may be hemoconcentrated and 3+ protein. Come to find out patient has not been taking his diuretic as when he does he does not like to pee because he has poor control. This was discussed with him and his as he needs to take it on daily basis and drink plenty of fluids. Medical Records I reviewed the patient's medical records. Lab Data I reviewed the patient's lab results. 02/02/24 23:30 02/02/24 23:30 Laboratory Results WBC 11.94 10^3/uL (3.29-11.43) H 02/02/24 23:30 RBC 6.11 10^6/uL (3.85-5.65) H 02/02/24 23:30 Hgb 18.20 g/dL (11.27-16.99) H 02/02/24 23:30 Hct 54.3 % (37-53) H 02/02/24 23:30 MCV 88.9 fl (82-101) 02/02/24 23:30 MCH 29.8 pg (27-33) 02/02/24 23:30 MCHC 33.5 g/dL (30-55) 02/02/24 23:30 RDW 14.5 % (12.1-15.1) 02/02/24 23:30 Plt Count 249 10^3/cmm (157-399) 02/02/24 23:30 MPV 10.3 fL (7.4-10.4) 02/02/24 23:30 Neut % (Auto) 72.1 % 02/02/24 23:30 Lymph % (Auto) 16.7 % 02/02/24 23:30 [place] % (Auto) 8.5 % 02/02/24 23:30 Eos % (Auto) 1.6 % 02/02/24 23:30 Baso % (Auto) 0.8 % 02/02/24 23:30 Neut # (Auto) 8.60 10^3/uL (1.8-7.7) H 02/02/24 23:30 Lymph # (Auto) 2.0 10^3/uL (0.8-4.8) 02/02/24 23:30 [place] # (Auto) 1.0 10^3/uL (0.2-0.9) H 02/02/24 23:30 Eos # (Auto) 0.2 10^3/uL (0.0-0.8) 02/02/24 23:30 Baso # (Auto) 0.1 10^3/uL (0.0-0.1) 02/02/24 23:30 Nucleated RBC % (auto) 0 % 02/02/24: Nucleated RBCs # 0.0 /100WBC 02/02/24 23:30 Sodium 138 mmol/L (136-145) 02/02/24 23:30 Potassium 4.0 mmol/L (3.5-5.1) 02/02/24 23:30 Chloride 100 mmol/L (98-107) 02/02/24 23:30 Carbon Dioxide 28 mmol/L (22-29) 02/02/24 23:30 Anion Gap 14.0 (5-19) 02/02/24 23:30 BUN 15 mg/dL (8-23) 02/02/24 23:30 Creatinine 1.2 mg/dL (0.7-1.2) 02/02/24 23:30 GFR Calculation 61.6 mL/min (90-130) L 02/02/24 23:30 Glucose 141 mg/dL (65-115) H 02/02/24 23:30 Calculated Osmolality 289 mOsm/kg (285-295) 02/02/24 23:30 Calcium 9.3 mg/dL (8.5-10.5) 02/02/24 23:30 Total Bilirubin 0.5 mg/dL (0.15-1.2) 02/02/24 23:30 AST 37 U/L (0-40) 02/02/24 23:30 ALT 53 U/L (0-41) H 02/02/24 23:30 Alkaline Phosphatase 121 U/L (40-130) 02/02/24 23:30 Total Protein 7.5 g/dL (6.6-8.7) 02/02/24 23:30 Albumin 4.0 g/dL (3.5-5.2) 02/02/24 23:30 Globulin 3.5 g/dL (1.3-4.6) 02/02/24 23:30 Urine Color Yellow (Yellow) 02/02/24 23:56 Urine Appearance Slightly cloudy (CLEAR) 02/02/24 23:56 Urine pH 5 (5-7) 02/02/24 23:56 Ur Specific [place] 1.020 (1.005-1.030) 02/02/24 23:56 Urine Protein 3+ (Negative) H 02/02/24 23:56 Urine Glucose (UA) Norm (Normal) 02/02/24 23:56 Urine Ketones Negative (Negative) 02/02/24 23:56 Urine Blood Neg (Negative) 02/02/24 23:56 Urine Nitrate Negative (Negative) 02/02/24 23:56 Urine Bilirubin Neg (Negative) 02/02/24 23:56 Urine Urobilinogen Neg mg/dL (Negative) 02/02/24 23:56 Ur Leukocyte Esterase Negative (Negative) 02/02/24 23:56 Urine RBC 0-4 /hpf (0-2) H 02/02/24 23:56 Urine WBC 0-4 /hpf (0-5) H 02/02/24 23:56 Ur Squamous Epith Cells 5-10 /hpf (0-5) H 02/02/24 23:56 Amorphous Sediment Not Reportable 02/02/24 23:56 Urine Bacteria Trace /hpf (NONE) 02/02/24 23:56 Hyaline Casts 0-4 /lpf H 02/02/24 23:56 Urine Mucus 1+ /hpf 02/02/24 23:56 All radiology interpretation(s) finalized by discharge Discharge Plan Discharge Patient Disposition: Home Clinical Impression: Non-compliance Condition: Stable Prescriptions: No Action nitroglycerin 0.4 mg tablet, sublingual 0.4 mg SUBLINGUAL Q5M PRN (Reason: chest pain) 90 Days Qty: 30 6RF Rx Instructions: until response; do not exceed 3 doses per episode cholecalciferol (vitamin D3) 25 mcg (1,000 unit) capsule 25 mcg PO DAILY primidone 50 mg tablet 50 mg PO .HS Galzin 50 mg (zinc) capsule 50 mg PO DAILY ascorbic acid (vitamin C) 1,000 mg tablet 2 g PO DAILY aspirin [Adult Aspirin Regimen] 81 mg tablet,delayed release (DR/EC) 162 mg PO DAILY (DME) CPAP See Rx Instructions .ROUTE .MEDSUPPLY Qty: 1 0RF Rx Instructions: As directed ropinirole 2 mg tablet 4 mg PO .at bedtime Rx Instructions: dose increase clonazepam 0.5 mg tablet 0.5 mg PO .HS fluoxetine [Prozac] 40 mg capsule 40 mg PO BID 21 Days Qty: 42 7RF (DME) DME: Walker Unit See Rx Instructions .ROUTE .MEDSUPPLY Qty: 1 0RF Rx Instructions: Code E0143 and E0156 walker 4 wheels and seat (DME) Shower chair See Rx Instructions .Route .MEDSUPPLY Qty: 1 0RF Rx Instructions: As directed hydrochlorothiazide 12.5 mg capsule 12.5 mg PO .COMPLEX 21 Days Qty: 21 7RF Rx Instructions: 12.5 mg orally M,W, F; allopurinol 300 mg tablet 300 mg PO BID 21 Days Qty: 42 7RF rosuvastatin [Crestor] 10 mg tablet 10 mg PO DAILY Qty: 21 7RF lidocaine 5 % adhesive patch,medicated 2 patch topical DAILY Qty: 60 5RF Rx Instructions: leave on most painful area for up to 12 hrs Farxiga 10 mg tablet 10 mg PO QAM Qty: 21 7RF tamsulosin 0.4 mg capsule See Rx Instructions .ROUTE .COMPLEX Qty: 30 12RF Dose Instruction: TAKE 1 CAPSULE BY MOUTH AT BEDTIME Rx Instructions: TAKE 1 CAPSULE BY MOUTH AT BEDTIME amlodipine 10 mg tablet 10 mg PO DAILY Qty: 90 3RF Discharge Orders: Discharge ED (Routine); Ordered 02/03/24 Ordered By: Ryley Butt Activity Restrictions/Additional Instructions: Please take all your medicine as directed especially your diuretics as this will help you urinate and not retain fluid. Thank you for choosing [facility] for your healthcare needs today. Please realize that you were seen in the emergency department and that we are providing you with an emergency medical screening exam and this may not be a complete and all exclusive of all testing and/or medical workup we may need to determine your element or severity of your illness. It is very important that you follow-up as instructed with your primary care provider or specialist for the additional evaluation and to discuss your medical treatment plan. You may return to the emergency department should you have concerns or if your condition changes or worsens in any way. Coding Level of Care Code ED [employer] Developer for Jamaal Morales
[2024-02-02 23:55] LABS: Alanine Aminotransferase 53 U/L (0-41); Alkaline Phosphatase 121 U/L (40-130); Aspartate Amino Transferase 37 U/L (0-40); Blood Urea Nitrogen 15 mg/dL (8-23); Calcium 9.3 mg/dL (8.5-10.5); Carbon Dioxide 28 mmol/L (22-29); Chloride 100 mmol/L (98-107); Creatinine Clr Calc Pharmacy 78.9642; Globulin 3.5 g/dL (1.3-4.6); Glomerular Filtration Rate 61.6 mL/min (90-130); Glucose 141 mg/dL (65-115); Osmolality Calculated 289 mOsm/kg (285-295); Sodium 138 mmol/L (136-145); Total Bilirubin 0.5 mg/dL (0.15-1.2); Total Protein 7.5 g/dL (6.6-8.7)
[2024-02-03 00:14] LABS: Add Urine Microscopic? YES; Bacteria Urine TRACE /hpf; Bilirubin Urine Neg (Negative); Blood Urine Neg (Negative); Glucose Urine UA Norm (Normal); Hyaline Casts Urine 0-4 /lpf; Ketones Urine Negative (Negative); Leukocyte Esterase Urine Negative (Negative); Mucus Urine 1+ /hpf; Nitrate Urine Negative (Negative); Protein Urine 3+ (Negative); RBC Urine 0-4 /hpf (0-2); Urine Appearance Slightly Cloudy (CLEAR); Urine Color Yellow (Yellow); Urobilinogen Urine Neg (Negative); WBC Urine 0-4 /hpf (0-5); pH Urine 5 (5-7)
[2024-02-03 00:15] LABS: Add Urine Culture? No
[2024-02-03 00:18] VITALS: BP 128/67; PULSE 65; O2SAT 91
[2024-02-03 01:36] VITALS: BP 133/74; PULSE 64; RESP 18; O2SAT 93
[2024-02-03 02:02] VITALS: BP 133/74; PULSE 65; RESP 18; O2SAT 93
== END 2024-02-03 02:05 | disposition home or self-care (01) ==
PROVIDERS: Emergency Provider Emergency Medicine
DX: R82.90 Unspecified abnormal findings in urine (principal); Z91.148 Patient's other noncompliance with medication regimen for other reason; I12.9 Hypertensive chronic kidney disease with stage 1 through stage 4 chronic kidney disease, or unspecified chronic kidney disease; N18.2 Chronic kidney disease, stage 2 (mild); G20.A1 Parkinson's disease without dyskinesia, without mention of fluctuations; Z86.73 Personal history of transient ischemic attack (TIA), and cerebral infarction without residual deficits; E78.2 Mixed hyperlipidemia
CPT/HCPCS: 36415; 51798; 80053; 81001; 85025; 99283

== ENCOUNTER 2024-02-07 20:22 | Emergency (ER) | payer OTHER, SELFPAY ==
--- NOTE | 2024-02-07 20:23 | USR_ITS ---
PROCEDURE INFORMATION: Exam: US Duplex Right Lower Extremity Veins, Limited Exam date and time: 02/07/2024 9:27 PM Age: 63 years old Clinical indication: Pain; Leg, lower; Right TECHNIQUE: Imaging protocol: Real-time duplex ultrasound of the right extremity with 2-D medrano scale, color Doppler flow and spectral waveform analysis including responses to compression and other maneuvers (when performed) with image documentation. Limited exam was focused on the right lower extremity veins. COMPARISON: US scrotum [id number] 09/21/2018 12:38 PM FINDINGS: Right deep veins: Unremarkable. The common femoral, femoral, proximal profunda femoral and popliteal veins are patent without thrombus. Normal Doppler waveforms. Normal compressibility and/or augmentation response. Superficial veins: Extensive greater saphenous generally occlusive SVT from the ankle to the saphenofemoral junction. Soft tissues: Unremarkable. US/[place] [id number] IMPRESSION: 1. No evidence of deep vein thrombosis. 2. Extensive greater saphenous SVT from the ankle to the saphenofemoral junction.
[2024-02-07 20:31] VITALS: BP 112/85; PULSE 76; RESP 16; TEMP 36.8; O2SAT 95
[2024-02-07 20:44] VITALS: BP 140/85; PULSE 71; RESP 18; O2SAT 93
[2024-02-07 21:20] VITALS: BP 129/74; PULSE 68; RESP 18; O2SAT 94
--- NOTE | 2024-02-07 21:35 | W.ED.EXTPRO ---
HPI - Extremity Problem General: Chief complaint: Extremity Problem,Nontraumatic Stated complaint: believes blood clot right leg & fall Time Seen by Provider: 02/07/24 20:41 History of Present Illness: 63-year-old male presents emergency department chief complaint of right leg swelling and pain patient endorses having a known history of ALS that he has a mobility issues he endorses that he sustained a fall on Friday which she developed some swelling and discomfort appreciated to the inner thigh and right knee he endorses a prior history of blood clots reports he is on no blood thinning agents currently he denies any chest pain or acute shortness of breath or palpitations. Patient does endorse impaired lung function due to his ALS patient reports mild swelling and pain located to the right back of the knee with some redness and warmth there which he is concerned he may be developing a blood clot hence the reason to come to the ER for further assessment and management Associated symptoms: Deny chest pain, fever(s) or rash Related Data Home Medications Medication Instructions Recorded Confirmed cholecalciferol (vitamin D3) 25 25 mcg PO DAILY 01/01/21 08/12/22 mcg (1,000 unit) capsule ascorbic acid (vitamin C) 1,000 mg 2 g PO DAILY 03/20/21 08/12/22 tablet primidone 50 mg tablet 50 mg PO .HS 03/20/21 08/12/22 zinc acetate 50 mg (zinc) capsule 50 mg PO DAILY 03/20/21 08/12/22 (Galzin) aspirin 81 mg tablet,delayed 162 mg PO DAILY 08/12/22 08/12/22 release (Adult Aspirin Regimen) clonazepam 0.5 mg tablet 0.5 mg PO .HS 08/12/22 08/12/22 ropinirole 2 mg tablet 4 mg PO .at bedtime 08/12/22 08/12/22 Previous Rx's Medication Instructions Recorded CPAP #1 ea 08/07/21 nitroglycerin 0.4 mg sublingual 0.4 mg sublingual Q5M PRN chest 08/13/21 tablet pain 90 days #30 tabs DME: Walker #1 ea 04/18/22 Shower chair #1 ea 04/18/22 fluoxetine 40 mg capsule (Prozac) 40 mg PO BID 21 days #42 caps 04/18/22 dapagliflozin propanediol 10 mg 10 mg PO QAM #21 tabs 04/24/22 tablet (Farxiga) tamsulosin 0.4 mg capsule See Rx Instructions .Route 05/06/22 .COMPLEX #30 caps allopurinol 300 mg tablet 300 mg PO BID 21 days #42 tabs 07/22/22 hydrochlorothiazide 12.5 mg capsule 12.5 mg PO .COMPLEX 21 days #21 07/22/22 caps lidocaine 5 % topical patch 2 patch topical DAILY #60 ea 07/22/22 rosuvastatin 10 mg tablet (Crestor) 10 mg PO DAILY #21 tabs 07/22/22 amlodipine 10 mg tablet 10 mg PO DAILY #90 tabs 08/12/22 Allergies Allergy/AdvReac Type Severity Reaction Status Date / Time naproxen Allergy ALGY-Swell Verified 02/07/24 20:37 Lip/Tongue/Throat semaglutide [From Ozempic] AdvReac Intermediate stomach Verified 02/07/24 20:37 pain Review of Systems General: Reports: 10 or more systems reviewed and unremarkable except in HPI and below Const: Denies: fever(s), chills, fatigue or malaise Eyes: Denies: change in vision or blurry vision Card: Denies: chest pain or palpitations Resp: Denies: dyspnea or productive cough GI: Denies: abdominal pain, nausea or vomiting : Denies: flank pain Musc: Reports: extremity pain and extremity swelling Skin/Breast: Denies: rash or pruritus Neuro: Denies: headache(s) Psych: Denies: anxiety or depression José/Lymph: Denies: easy bleeding All/Imm: Denies: urticaria, throat swelling or facial swelling PFSH ED PFSH: Medical History CKD (chronic kidney disease) stage 2, GFR 60-89 ml/min Erectile dysfunction Hematospermia KAVITHA on CPAP BPH loc w urin obs/LUTS Stroke Parkinson disease Essential hypertension History of kidney stones Mixed hyperlipidemia Restless leg syndrome Anxiety and depression Hesitancy Vitamin D deficiency IBS (irritable bowel syndrome) Gout Surgical History S/P skin and subcutaneous tissue surgery Squamous cell cancer S/P eye surgery Hx of colonoscopy (~2012) History of esophagogastroduodenoscopy (EGD) (~2013) Family History Father , age62 Diabetes Mother , AT AGE 72 Hypertension Lung disease COPD Social History Smoking and tobacco/nicotine status: never used tobacco/nicotine Second hand smoke exposure: No Alcohol intake: never Substance/Drug Use: unknown Adopted: No Caregiver/support person: No Lives independently: Yes Household members: spouse Housing: House Marital status: Number of children: 3 Current occupational status: disabled Current occupation: [employer]/ TEMPORARILY DISABLED Do you think of yourself as: Straight/Heterosexual Current gender identity: Male Physical Exam Const: COMMON NORMALS: no acute distress, patient oriented x3 and healthy appearing HENMT: COMMON NORMALS: normocephalic and atraumatic HEAD & SCALP: normocephalic and atraumatic Eye: COMMON NORMALS: Equal, round and reactive pupils present and EOMs intact bilaterally PUPIL: Yes Equal, round and reactive pupils present Neck/C-Spine: COMMON NORMALS: full ROM, supple and no JVD Lymph: LYMPHATIC: no lymphadenopathy noted Chest: COMMONS NORMALS: normal inspection of the chest and normal palpation of entire chest wall Resp: COMMON NORMALS: normal respiratory effort, No retractions and clear to auscultation bilaterally EFFORT & INSPECTION: Yes able to speak in complete sentences and Yes symmetric chest movement AUSCULTATION: clear to auscultation bilaterally Cardio: COMMON NORMALS: no JVD, regular rate and regular rhythm RATE: regular rate RHYTHM: regular rhythm GI: COMMON NORMALS: Normal to inspection, nondistended, normoactive bowel sounds present, Soft to palpation and non-tender INSPECTION: Yes normal to inspection PALPATION: Yes Soft to palpation : COMMON NORMALS: Yes no CVA tenderness BLADDER/KIDNEY EXAM: Yes no CVA tenderness Back/Pelvis: COMMON NORMALS: no CVA tenderness Extremity: COMMON NORMALS: negative for full ROM OTHER: Mild swelling with erythema appreciated to the right popliteal fossa extending up the right inner thigh no obvious bruising or contusion appreciated mild right-sided calf swelling also noted with only 1+ edema appreciated neurovascularly intact distally Neuro: COMMON NORMALS: patient oriented x3, CN's II-XII intact bilaterally, moves all extremities and no focal motor deficits Psych: COMMON NORMALS: mental status grossly normal, Normal thought process present, cooperative and normal affect THOUGHT PROCESS: Normal thought process present Skin: COMMON NORMALS: no rashes or lesions noted GENERAL SKIN EXAM: no rashes or lesions noted Course Vital Signs: Vital signs: Vital Signs Temperature 98.2 F 02/07/24 20:31 Pulse Rate 68 02/07/24 21:20 Respiratory Rate 18 02/07/24 21:20 Blood Pressure 129/74 02/07/24 21:20 Pulse Oximetry 94 02/07/24 21:20 Oxygen Delivery Me thod Room Air 02/07/24 21:20 MDM - Extremity (Nontraumatic) Medical Decision Making Due to patient's concerns will be obtaining an ultrasound venous of the right lower extremity to further rule out DVT especially due to patient's immobility due to his underlying chronic illness as well as prior history of DVT will continue to follow. Patient's ultrasound revealed for tachycardia superficial venous thrombosis of the superficial common femoral vein patient will be instructed to be started on aspirin continue high-dose aspirin he will be started on some patient pain medications warm compresses to the affected area and was instructed to further follow-up with primary care for repeat ultrasonography in the next 1 week in which patient advised to return the interim if any of his symptoms persist or worse. All radiology interpretation(s) finalized by discharge Discharge Plan Discharge Patient Disposition: Home Clinical Impression: Acute superficial venous thrombosis of right lower extremity Condition: Stable Prescriptions: No Action nitroglycerin 0.4 mg tablet, sublingual 0.4 mg SUBLINGUAL Q5M PRN (Reason: chest pain) 90 Days Qty: 30 6RF Rx Instructions: until response; do not exceed 3 doses per episode cholecalciferol (vitamin D3) 25 mcg (1,000 unit) capsule 25 mcg PO DAILY primidone 50 mg tablet 50 mg PO .HS Galzin 50 mg (zinc) capsule 50 mg PO DAILY ascorbic acid (vitamin C) 1,000 mg tablet 2 g PO DAILY aspirin [Adult Aspirin Regimen] 81 mg tablet,delayed release (DR/EC) 162 mg PO DAILY (DME) CPAP See Rx Instructions .ROUTE .MEDSUPPLY Qty: 1 0RF Rx Instructions: As directed ropinirole 2 mg tablet 4 mg PO .at bedtime Rx Instructions: dose increase clonazepam 0.5 mg tablet 0.5 mg PO .HS fluoxetine [Prozac] 40 mg capsule 40 mg PO BID 21 Days Qty: 42 7RF (DME) DME: Walker Unit See Rx Instructions .ROUTE .MEDSUPPLY Qty: 1 0RF Rx Instructions: Code E0143 and E0156 walker 4 wheels and seat (DME) Shower chair See Rx Instructions .Route .MEDSUPPLY Qty: 1 0RF Rx Instructions: As directed hydrochlorothiazide 12.5 mg capsule 12.5 mg PO .COMPLEX 21 Days Qty: 21 7RF Rx Instructions: 12.5 mg orally M,W, F; allopurinol 300 mg tablet 300 mg PO BID 21 Days Qty: 42 7RF rosuvastatin [Crestor] 10 mg tablet 10 mg PO DAILY Qty: 21 7RF lidocaine 5 % adhesive patch,medicated 2 patch topical DAILY Qty: 60 5RF Rx Instructions: leave on most painful area for up to 12 hrs Farxiga 10 mg tablet 10 mg PO QAM Qty: 21 7RF tamsulosin 0.4 mg capsule See Rx Instructions .ROUTE .COMPLEX Qty: 30 12RF Dose Instruction: TAKE 1 CAPSULE BY MOUTH AT BEDTIME Rx Instructions: TAKE 1 CAPSULE BY MOUTH AT BEDTIME amlodipine 10 mg tablet 10 mg PO DAILY Qty: 90 3RF Discharge Orders: Discharge ED (Routine); Ordered 02/07/24 Ordered By: Nba Ace Patient Instructions: Superficial Thrombophlebitis (ED) Activity Restrictions/Additional Instructions: Take a full aspirin daily warm compresses to the effected area anti-inflammatories for pain control please further follow-up with your primary care doctor in a week for repeat ultrasound please return in the interim if any of your symptoms persist or worse. Coding Level of Care Code ED Engineer Station Mainline for Jamaal Morales
[2024-02-07 22:15] VITALS: BP 121/70; PULSE 62; O2SAT 92
[2024-02-07 22:55] VITALS: BP 121/70; PULSE 66; RESP 18; O2SAT 92
== END 2024-02-07 22:30 | disposition home or self-care (01) ==
PROVIDERS: Emergency Provider Emergency Medicine
DX: I82.811 Embolism and thrombosis of superficial veins of right lower extremity (principal); Z79.82 Long term (current) use of aspirin; I12.9 Hypertensive chronic kidney disease with stage 1 through stage 4 chronic kidney disease, or unspecified chronic kidney disease; N18.2 Chronic kidney disease, stage 2 (mild); Z86.73 Personal history of transient ischemic attack (TIA), and cerebral infarction without residual deficits; G20.A1 Parkinson's disease without dyskinesia, without mention of fluctuations; E78.2 Mixed hyperlipidemia
CPT/HCPCS: 93971; 99284

== ENCOUNTER 2024-06-22 12:43 | Inpatient (IN) | payer OTHER, SELFPAY ==
[2024-06-22] VITALS (10 sets, daily range): BP systolic 110–136; BP diastolic 66–83; PULSE 68–79; RESP 16–18; TEMP 36.4–37; O2SAT 89–94; BMI 41.8; BMI 40.8
--- NOTE | 2024-06-22 12:50 | XRR_ITS ---
PROCEDURE INFORMATION: Exam: XR Chest Exam date and time: 06/22/2024 12:58 PM Age: 63 years old Clinical indication: Shortness of breath TECHNIQUE: Imaging protocol: Radiologic exam of the chest. Views: 1 view. COMPARISON: CR XR chest 2V* [id number] 06/28/2019 8:10 AM FINDINGS: Lungs: Lung volumes are low. Central interstitial markings are indistinct. There is questionable bilateral perihilar pulmonary opacity. Pleural spaces: There is no pleural effusion or pneumothorax. Heart/Mediastinum: Heart size is normal. Bones/joints: Bones are unremarkable. XR/XR chest 1V portable [id number] IMPRESSION: Low lung volumes with crowded central interstitial markings and questionable bilateral perihilar consolidation. Findings may be nonpathologic, reflecting perihilar atelectasis due to low lung volumes. Infection is not excluded. Consider follow-up PA and lateral chest radiographs.
--- NOTE | 2024-06-22 12:58 | ECG_ITS ---
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 Measurements Intervals [place] Rate: 78 P: 50 MA: 147 QRS: -13 QRSD: 96 T: 29 QT: 375 QTc: 428 Interpretive Statements SINUS RHYTHM LOW QRS VOLTAGE IN PRECORDIAL LEADS [QRS DEFLECTION < 1.0 mV IN CHEST LEADS] INCOMPLETE RIGHT BUNDLE BRANCH BLOCK [90+ ms QRS DURATION, TERMINAL R IN V1/V2, 40+ ms S IN I/aVL/V4/V5/V6] ST DEVIATION AND MODERATE T-WAVE ABNORMALITY, CONSIDER ANTERIOR ISCHEMIA [-0.1+ mV T-WAVE IN V3/V4] No previous ECG available for comparison Electronically Signed On 06-24-2024 22:02:53 [employer]ENT by Kevin Nolan M.D. [email or web address]
--- NOTE | 2024-06-22 12:59 | W.ED.SOB ---
HPI - SOB/Dyspnea General: Chief Complaint: Shortness of Breath/Dyspnea Stated Complaint: Resp Distress Time Seen by Provider: 06/22/24 12:50 History of Present Illness: HPI Narrative: 63-year-old man with a history of ALS, Parkinson's disease, chronic kidney disease, chronic respiratory failure on nasal BiPAP at all times, hypertension, and obesity who presents emergency room by ambulance with worsening shortness of breath and right-sided chest pain. He was diagnosed with flu around a week ago. He had been given a round of doxycycline. He says he is gotten worse and more short of breath. O2 sats in the low 90s on his home BiPAP. No new fevers. No altered mental status. No abdominal pain. No vomiting. Related Data Home Medications ?Medication ?Instructions ?Recorded ?Confirmed cholecalciferol (vitamin D3) 25 25 mcg PO DAILY 01/01/21 06/22/24 mcg (1,000 unit) capsule ascorbic acid (vitamin C) 1,000 mg 2 g PO DAILY 03/20/21 06/22/24 tablet primidone 50 mg tablet 50 mg PO .HS 03/20/21 06/22/24 aspirin 81 mg tablet,delayed 162 mg PO DAILY 08/12/22 06/22/24 release (Adult Aspirin Regimen) clonazepam 0.5 mg tablet 0.5 mg PO .HS 08/12/22 06/22/24 albuterol sulfate 90 mcg/actuation 2 puff inhalation Q6H 06/22/24 06/22/24 aerosol inhaler isosorbide mononitrate 30 mg 30 mg PO DAILY 06/22/24 06/22/24 tablet,extended release 24 hr tamsulosin 0.4 mg capsule 0.4 mg PO QPM 06/22/24 06/22/24 tramadol 50 mg tablet 50 mg PO PRN PRN Pain 06/22/24 06/22/24 Previous Rx's ?Medication ?Instructions ?Recorded CPAP #1 ea 08/07/21 DME: Walker #1 ea 04/18/22 Shower chair #1 ea 04/18/22 fluoxetine 40 mg capsule (Prozac) 40 mg PO BID 21 days #42 caps 04/18/22 dapagliflozin propanediol 10 mg 10 mg PO QAM #21 tabs 04/24/22 tablet (Farxiga) allopurinol 300 mg tablet 300 mg PO BID 21 days #42 tabs 07/22/22 rosuvastatin 10 mg tablet (Crestor) 10 mg PO DAILY #21 tabs 07/22/22 amlodipine 10 mg tablet 10 mg PO DAILY #90 tabs 08/12/22 Allergies Allergy/AdvReac Type Severity Reaction Status Date / Time naproxen Allergy Sarthak Verified 02/07/24 20:37 Lip/Tongue/Throat semaglutide (From Ozempic) AdvReac Intermediate stomach Verified 02/07/24 20:37 pain Review of Systems Narrative: Constitutional symptoms: Negative except as documented in HPI. Skin symptoms: Negative except as documented in HPI. Eye symptoms: Negative except as documented in HPI. ENMT symptoms: Negative except as documented in HPI. Respiratory symptoms: Negative except as documented in HPI. Cardiovascular symptoms: Negative except as documented in HPI. Gastrointestinal symptoms: Negative except as documented in HPI. Genitourinary symptoms: Negative except as documented in HPI. Musculoskeletal symptoms: Negative except as documented in HPI. Neurologic symptoms: Negative except as documented in HPI. Psychiatric symptoms: Negative except as documented in HPI. Endocrine symptoms: Negative except as documented in HPI. PFSH ED PFSH: Medical History CKD (chronic kidney disease) stage 2, GFR 60-89 ml/min Erectile dysfunction Hematospermia KAVITHA on CPAP BPH loc w urin obs/LUTS Stroke Parkinson disease Essential hypertension History of kidney stones Mixed hyperlipidemia Restless leg syndrome Anxiety and depression Hesitancy Vitamin D deficiency IBS (irritable bowel syndrome) Gout Surgical History S/P skin and subcutaneous tissue surgery Squamous cell cancer S/P eye surgery Hx of colonoscopy (~2012) History of esophagogastroduodenoscopy (EGD) (~2012) Family History Father , age62 Diabetes Mother , AT AGE 72 Hypertension Lung disease COPD Social History Smoking and tobacco/nicotine status: never used tobacco/nicotine Second hand smoke exposure: No Alcohol intake: never Substance/Drug Use: unknown Adopted: No Caregiver/support person: No Lives independently: Yes Household members: spouse Housing: House Marital status: Number of children: 3 Current occupational status: disabled Current occupation: [employer] TEMPORARILY DISABLED Do you think of yourself as: Straight/Heterosexual Current gender identity: Male Physical Exam Narrative: EXAM NARRATIVE: General: Alert, no acute distress. Skin: Warm, dry. Head: Normocephalic, atraumatic. Neck: Supple, trachea midline. Eye: Extraocular movements are intact. Ears, nose, mouth and throat: mucosa moist. Cardiovascular: Regular, Normal peripheral perfusion. Respiratory: Lungs are clear to auscultation, respirations are non-labored, breath sounds are equal, Symmetrical chest wall expansion. Gastrointestinal: Soft, Nontender, Non distended Musculoskeletal: Normal ROM, no deformity. Neurological: Alert and oriented, No focal neurological deficit observed. Psychiatric: Cooperative, appropriate mood & affect. Course Vital Signs: Vital signs: Vital Signs Temperature 98.5 F 06/22/24 13:36 Pulse Rate 73 06/22/24 14:54 Respiratory Rate 16 06/22/24 14:54 Blood Pressure 119/72 06/22/24 14:54 Pulse Oximetry 92 06/22/24 14:54 Oxygen Delivery Me thod CPAP 06/22/24 14:54 MDM - SOB/Dyspnea Medical Decision Making Differential diagnosis for patient with shortness of breath includes but is not limited to and based on the above HPI, review of systems and physical exam: Pneumonia. Bronchitis. Asthma or COPD with acute exacerbation. Acute coronary syndrome / FL. Pulmonary embolism. Anxiety. Congestive heart failure. Viral infections including influenza and Covid-19. Atrial fibrillation. Anxiety. Pleural effusion. Pneumothorax. Orders placed to evaluate differential diagnosis based on the above differential, HPI and physical exam EKG: Time 1258. Rate 78. Normal sinus rhythm, nonspecific ST changes, no ectopy, normal AK & QRS intervals, This was reviewed and interpreted by myself the ER physician at 1302. Repeat EKG: Time 1357. Rate 78. Normal sinus rhythm, No ST-T changes, no ectopy, normal AK & QRS intervals, This was reviewed and interpreted by myself the ER physician at 1400. Chest x-ray: Bibasilar atelectasis versus infiltrate.. No pneumothorax. This was reviewed and interpreted by myself the emergency room physician. I also reviewed the radiology report. Lab Review: Laboratory results were reviewed and interpreted by myself the emergency room physician. Patient has leukocytosis with white count of 17,000. Mild polycythemia with a hemoglobin of 18. BUN/creatinine are 20 and 1 which is not abnormal. RSV flu and COVID are all negative. Lactate is negative. CRP is quite elevated. I reviewed the patient's medical record. Reexamination: Patient's O2 sats continue to range from the upper 80s to low 90s on home CPAP. His white count of 17,000. Radiology reads atelectasis but I think the right looks worse than the left and he has pain that is pleuritic in the right side I think this is consistent with a pneumonia. Consultation: I spoke with Dr. Stokes who is on-call for the hospitalist service who agrees to admission Assessment and plan: Acute on chronic hypoxemic respiratory failure ALS Pneumonia ?IV Solu-Medrol, DuoNeb and albuterol ?Patient was on doxycycline. Changing to Levaquin. -I discussed the patient with the hospitalist on-call who is admitting the patient. - Discussed findings and plan with patient. Answered any questions. - All laboratory values were reviewed and interpreted personally by myself, the ER physician - All imaging was reviewed and interpreted personally by myself, the ER physician. - Evaluation and treatment of this problem were appropriate in the emergency setting Lab Data 06/22/24 13:15 06/22/24 13:15 Labs/Radiology: Radiology Impressions Chest X-Ray 06/22/24 12:50 IMPRESSION: Low lung volumes with crowded central interstitial markings and questionable bilateral perihilar consolidation. Findings may be nonpathologic, reflecting perihilar atelectasis due to low lung volumes. Infection is not excluded. Consider follow-up PA and lateral chest radiographs. Chest CT 06/22/24 13:35 IMPRESSION: 1. Low lung volumes due to poor inspiration. 2. Bibasilar consolidations consistent with atelectasis. 3. No infiltrates in the hilar regions. 4. No pleural effusion. Laboratory Results WBC 17.05 10^3/uL (3.29-11.43) H 06/22/24 13:15 RBC 5.88 10^6/uL (3.85-5.65) H 06/22/24 13:15 Hgb 18.10 g/dL (11.27-16.99) H 06/22/24 13:15 Hct 52.4 % (37-53) 06/22/24 13:15 MCV 89.1 fl (82-101) 06/22/24 13:15 MCH 30.8 pg (27-33) 06/22/24 13:15 MCHC 34.5 g/dL (30-55) 06/22/24 13:15 RDW 14.4 % (12.1-15.1) 06/22/24 13:15 Plt Count 254 10^3/cmm (157-399) 06/22/24 13:15 MPV 10.2 fL (7.4-10.4) 06/22/24 13:15 Neut % (Auto) 80.3 % 06/22/24 13:15 Lymph % (Auto) 9.5 % 06/22/24 13:15 Jay % (Auto) 8.0 % 06/22/24 13:15 Eos % (Auto) 0.7 % 06/22/24 13:15 Baso % (Auto) 0.6 % 06/22/24 13:15 Neut # (Auto) 13.69 10^3/uL (1.8-7.7) H 06/22/24 13:15 Lymph # (Auto) 1.6 10^3/uL (0.8-4.8) 06/22/24 13:15 Jay # (Auto) 1.4 10^3/uL (0.2-0.9) H 06/22/24 13:15 Eos # (Auto) 0.1 10^3/uL (0.0-0.8) 06/22/24 13:15 Baso # (Auto) 0.1 10^3/uL (0.0-0.1) 06/22/24 13:15 Nucleated RBC % (auto) 0 % 06/22/24 13:15 Nucleated RBCs # 0.0 /100WBC 06/22/24 13:15 Specimen Type Arterial 06/22/24 13:18 Sample Site Radial, left 06/22/24 13:18 ABG pH 7.46 (7.35-7.45) H 06/22/24 13:18 ABG pCO2 32.3 mmHg (35-45) L 06/22/24 13:18 ABG pO2 59.7 mmHg (80.0-100.0) L 06/22/24 13:18 ABG PO2/FiO2 Ratio 284 06/22/24 13:18 ABG HCO3 22.7 mmol/L (22-26) 06/22/24 13:18 ABG O2 Saturation 93.6 06/22/24 13:18 ABG Base Excess -0.2 mmol/L (-2.0-2.0) 06/22/24 13:18 Carter Test Pos 06/22/24 13:18 A-a O2 Gradient 6.6 mmHg (5-10) 06/22/24 13:18 Hematocrit 54.1 % (42-52) H 06/22/24 13:18 Hgb O2 Saturation 92.1 % (95-100) L 06/22/24 13:18 Carboxyhemoglobin 1.4 %THgb (0.4-20.1) 06/22/24 13:18 Methemoglobin 0.2 % (0.4-1.5) L 06/22/24 13:18 Total Hemoglobin 17.7 g/dL (14-18) 06/22/24 13:18 Sodium 137.0 mmol/L (131-143) 06/22/24 13:18 Potassium 4.0 mmol/L (3.5-5.0) 06/22/24 13:18 Glucose 143.0 mg/dL (70-115) H 06/22/24 13:18 Ionized Calcium 1.3 mmol/L (1.1-1.4) 06/22/24 13:18 O2 Delivery Device Vent 06/22/24 13:18 FiO2 21.0 % 06/22/24 13:18 PEEP 5.0 cmH20 06/22/24 13:18 Body Maker Machine Setter ID Monro 06/22/24 13:18 Sodium 135 mmol/L (136-145) L 06/22/24 13:15 Potassium 4.4 mmol/L (3.5-5.1) 06/22/24 13:15 Chloride 100 mmol/L (98-107) 06/22/24 13:15 Carbon Dioxide 21 mmol/L (22-29) L 06/22/24 13:15 Anion Gap 18.4 (5-19) 06/22/24 13:15 BUN 20 mg/dL (8-23) 06/22/24 13:15 Creatinine 1.0 mg/dL (0.7-1.2) 06/22/24 13:15 GFR Calculation 76.0 mL/min (90-130) L 06/22/24 13:15 Glucose 136 mg/dL (65-115) H 06/22/24 13:15 Calculated Osmolality 285 mOsm/kg (285-295) 06/22/24 13:15 Lactic Acid 1.0 mmol/L (0.5-2.2) 06/22/24 13:15 Calcium 10.0 mg/dL (8.5-10.5) 06/22/24 13:15 Total Bilirubin 0.7 mg/dL (0.15-1.2) 06/22/24 13:15 AST 33 U/L (0-40) 06/22/24 13:15 ALT 70 U/L (0-41) H 06/22/24 13:15 Alkaline Phosphatase 120 U/L (40-130) 06/22/24 13:15 Troponin T Baseline 8 ng/L (0-15) 06/22/24 13:15 C-Reactive Protein 182.6 mg/L (0.0-4.9) H 06/22/24 13:15 NT-Pro-B Natriuret Pep < 36 pg/mL (0-125) 06/22/24 13:15 Total Protein 7.4 g/dL (6.6-8.7) 06/22/24 13:15 Albumin 4.0 g/dL (3.5-5.2) 06/22/24 13:15 Globulin 3.4 g/dL (1.3-4.6) 06/22/24 13:15 Procalcitonin 0.09 ng/mL (0-0.5) 06/22/24 13:15 Coronavirus (PCR) Negative (Negative) 06/22/24 13:23 Influenza A (PCR) Negative (Negative) 06/22/24 13:23 Influenza Type B (PCR) Negative (Negative) 06/22/24 13:23 RSV (PCR) Negative (Negative) 06/22/24 13:23 All radiology interpretation(s) finalized by discharge Discharge Plan Discharge Patient Disposition: Admitted As Inpatient Clinical Impression: Acute on chronic hypoxic respiratory failure, Pneumonia Condition: Stable Coding Level of Care Code ED Bobbin Hauler for Jamaal Morales
[2024-06-22 13:31] LABS: Basophils # 0.1 10^3/uL (0.0-0.1); Basophils % 0.6 %; Eosinophils # 0.1 10^3/uL (0.0-0.8); Eosinophils % 0.7 %; Hematocrit 52.4 % (37-53); Lymphocytes # 1.6 10^3/uL (0.8-4.8); Lymphocytes % 9.5 %; Mean Corpuscular HGB Conc 34.5 g/dL (30-55); Mean Corpuscular Hemoglobin 30.8 pg (27-33); Mean Corpuscular Volume 89.1 fl (82-101); Mean Platelet Volume 10.2 fL (7.4-10.4); Monocytes # 1.4 10^3/uL (0.2-0.9); Neutrophils # 13.69 10^3/uL (1.8-7.7); Neutrophils % 80.3 %; Nucleated Red Blood Cells % 0 %; Platelet Count 254 10^3/cmm (157-399); Red Blood Count 5.88 10^6/uL (3.85-5.65); Red Cell Distribution Width 14.4 % (12.1-15.1); White Blood Count 17.05 10^3/uL (3.29-11.43)
[2024-06-22 13:31] LABS: ABG PCO2 32.3 mmHg (35-45); ABG PH Result 7.46 (7.35-7.45); Alveolar-Arterial Oxygen Gradi 6.6 mmHg (5-10); Arterial Blood Gas Hematocrit 54.1 % (42-52); Base Excess ABG -0.2 mmol/L (-2.0-2.0); Blood Gas Allen Test Pos; Blood Gas Operator Identificat MONRO; Blood Gas Sample Site Radial, left; Blood Gas Sample Type Arterial; Carboxyhemoglobin 1.4 %THgb (0.4-20.1); HCO3 ABG 22.7 mmol/L (22-26); HGB O2 Sat 92.1 % (95-100); Ionized Calcium Level - ABG 1.3 mmol/L (1.1-1.4); Methemoglobin 0.2 % (0.4-1.5); Oxygen Device VENT; Oxygen Saturation ABG 93.6; PO2 ABG 59.7 mmHg (80.0-100.0); PO2 FiO2 Ratio Arterial Blood 284; Total Hemoglobin 17.7 g/dL (14-18)
--- NOTE | 2024-06-22 13:35 | CT_ITS ---
WS: [id number] CT chest wo con [id number] HISTORY: abnormal chest xray TECHNIQUE: Axial imaging performed through the thorax. Coronal and sagittal reformats are submitted. All CT scans at [facility] use at least one of these dose optimization techniques: automated exposure control; mA and/or kV adjustment per patient size (includes targeted exams where dose is matched to clinical indication); or iterative reconstruction. CONTRAST: None DLP: 617.41 mGy.cm COMPARISON: Chest radiograph 06/22/2024 Lungs and central airway: Breathing motion artifact. Lungs volumes are decreased. Bilateral lower lobe subsegmental areas of atelectasis. No areas of consolidation at the asha. There is a very small amount of frothy secretions in the RIGHT lateral trachea. Pleura: Normal. No pleural effusion. Heart and pericardium: Normal size heart with no pericardial effusion. Mediastinum and asha: No mediastinum or hilar adenopathy. Vessels: Minimal atherosclerosis aorta. Normal size pulmonary artery. Chest wall and lower neck: No soft tissue masses. Upper abdomen: Moderately distended stomach with fluid and air. Normal adrenal glands. Visualized liver is normal. Osseous structures: No destructive process. CT/CT chest wo con [id number] IMPRESSION: 1. Low lung volumes due to poor inspiration. 2. Bibasilar consolidations consistent with atelectasis. 3. No infiltrates in the hilar regions. 4. No pleural effusion.
[2024-06-22 13:52] LABS: Troponin(5th) Baseline 8 ng/L (0-15)
--- NOTE | 2024-06-22 13:57 | ECG_ITS ---
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 Measurements Intervals [place] Rate: 78 P: 44 NC: 144 QRS: -18 QRSD: 94 T: 41 QT: 392 QTc: 447 Interpretive Statements SINUS RHYTHM LOW QRS VOLTAGE IN PRECORDIAL LEADS [QRS DEFLECTION < 1.0 mV IN CHEST LEADS] NONSPECIFIC ST & T-WAVE ABNORMALITY Compared to ECG 06/22/2024 12:58:55 Incomplete right bundle-branch block no longer present Possible ischemia no longer present T-wave abnormality still present Electronically Signed On 06-24-2024 22:21:49 PRACTICAL NURSE CLINICAL COORDINATOR by Kevin Nolan M.D. [email or web address]
[2024-06-22 14:05] LABS: NT Pro B Type Natriuretic Pept < 36 pg/mL (0-125); Procalcitonin 0.09 ng/mL (0-0.5)
[2024-06-22 14:10] LABS: Covid PCR NEGATIVE (Negative); Influenza A NEGATIVE (Negative); Influenza B NEGATIVE (Negative); Respiratory Syncytial Virus Ce NEGATIVE (Negative)
[2024-06-22 14:16] LABS: Alanine Aminotransferase 70 U/L (0-41); Alkaline Phosphatase 120 U/L (40-130); Anion Gap 18.4 (5-19); Aspartate Amino Transferase 33 U/L (0-40); Blood Urea Nitrogen 20 mg/dL (8-23); C Reactive Protein 182.6 mg/L (0.0-4.9); Carbon Dioxide 21 mmol/L (22-29); Chloride 100 mmol/L (98-107); Creatinine Clr Calc Pharmacy 93.5623; Globulin 3.4 g/dL (1.3-4.6); Glucose 136 mg/dL (65-115); Osmolality Calculated 285 mOsm/kg (285-295); Potassium 4.4 mmol/L (3.5-5.1); Sodium 135 mmol/L (136-145); Total Bilirubin 0.7 mg/dL (0.15-1.2); Total Protein 7.4 g/dL (6.6-8.7)
[2024-06-22 15:31] LABS: Troponin 5 2HR 8.43 ng/L (0-15); Troponin 5 2HR Delta 0.43 ABS# (0-10)
[2024-06-22 15:35] LABS: D Dimer 5.56 ug/mLFEU (0-0.59)
[2024-06-22] MEDS: levofloxacin-dextrose 5 % 750 MG/150 ML PREMIX 100 MG IV (15:36)
[2024-06-22] MEDS: HYDROcodone-acetaminophen 5-325 mg Tablet 1 TAB PO (16:13)
--- NOTE | 2024-06-22 16:41 | CTR_ITS ---
PROCEDURE INFORMATION: Exam: CTA Chest With Contrast Exam date and time: 06/22/2024 9:17 PM Age: 63 years old Clinical indication: Shortness of breath; Additional info: Hypoxia, elevated dimer TECHNIQUE: Imaging protocol: Computed tomographic angiography of the chest with contrast. Exam focused on the arteries. 3D rendering (Not supervised by radiologist): MIP and/or 3D reconstructed images were created by the technologist. Radiation optimization: All CT scans at this facility use at least one of these dose optimization techniques: automated exposure control; mA and/or kV adjustment per patient size (includes targeted exams where dose is matched to clinical indication); or iterative reconstruction. Contrast material: OMNIPAQUE 350; Contrast volume: 100 ml; Contrast route: INTRAVENOUS (IV); COMPARISON: CT chest wo [facility] [id number] 06/22/2024 2:11 PM RADIATION DOSE METRICS: Total DLP (mGy-cm): 463.59 FINDINGS: Pulmonary arteries: Extensive pulmonary emboli in the segmental pulmonary artery supplying the right lower lobe and left lower and left upper lobe. Aorta: Unremarkable. No aortic aneurysm. No aortic dissection. Lungs: Opacities in the posterior aspect of the lung bases present pulmonary infarct. Pleural spaces: Unremarkable. No pneumothorax. No pleural effusion. Heart: There is evidence of right heart strain with an RV to LV ratio of 1.1. Lymph nodes: Unremarkable. No enlarged lymph nodes. Bones/joints: Unremarkable. No acute fracture. Soft tissues: Unremarkable. CT/CT angio chest PE protcl [id number] IMPRESSION: 1. Extensive pulmonary emboli in the segmental pulmonary artery supplying the right lower lobe and left lower and left upper lobe. 2. There is evidence of right heart strain with an RV to LV ratio of 1.1. 3. Opacities in the posterior aspect of the lung bases present pulmonary infarct.
--- NOTE | 2024-06-22 16:51 | PM.HP ---
Providers/Chief Complaint Admitting Physician: Michael Stokes MD Chief Complaint: Resp Distress History of Present Illness Alec Parr is a 63 year old male with past medical history of ALS on CPAP ventilation as needed, hypertension, hyperlipidemia, type 2 diabetes mellitus, CKD with baseline creatinine of 1. As per the patient and spouse at bedside patient had influenza A around 12 days ago for which she required Tamiflu. After that his cough continue to be bothering for him hence he was placed on doxycycline 5-day course which ended yesterday. 2 days ago patient started complaining of right-sided chest pain getting worse with taking a deep breath and cough hence he present to the ER today. Patient had been on steroids till 4 days ago. He denies any nausea, vomiting, diarrhea. Denies any changes in his medications recently. Denies any increase oxygen requirements recently. Review of Systems General: Reports: 10 or more systems reviewed and unremarkable except in HPI and below Const: Denies: fever(s), chills, body aches, change in appetite, change in weight, malaise, night sweats, diaphoresis, change in sleep pattern, daytime sleepiness or snoring Eyes: Denies: change in vision, blurry vision, photophobia, eye discomfort or eye discharge ENMT: Denies: throat pain, enlarged tonsils, hoarseness, mouth pain, oral sores, dry mouth, tinnitus, nasal congestion or post nasal drip Card: Denies: chest pain, palpitations, irregular heart rhythm, edema, swelling of feet/ankles, lightheadedness, syncope, pre-syncope, dyspnea on exertion, orthopnea, leg pain with exertion or acrocyanosis Resp: Denies: dyspnea, productive cough, non-productive cough, wheezing, stridor, pain on inspiration, change in phlegm color, hemoptysis or chest congestion GI: Denies: abdominal pain, nausea, vomiting, hematemesis, coffee ground emesis, dysphagia, heartburn, diarrhea, constipation, bloating, GI cramping, change in bowel habits, pain on defecation, hematochezia or melena : Denies: flank pain, difficulty urinating, dysuria, urinary frequency, urinary urgency, urinary hesitancy, urinary dribbling, difficulty starting urination, change in urine stream, nocturia or hematuria Musc: Denies: neck pain, back pain, extremity pain, joint pain, joint swelling, joint redness, joint stiffness or limited range of motion Neuro: Denies: headache(s), numbness in extremities, weakness in extremities, sensory changes, lack of coordination, difficulty walking, frequent falls, dizziness, vertigo, confusion, Slurred speech present, difficulty communicating thoughts or seizure-like activity Psych: Denies: anxiety, depression, mood swings, panic attacks, hopelessness or irritability Endo: Denies: polyuria, polydipsia, tired all the time, cold intolerance, excessive sweating, flushing or heat intolerance José/Lymph: Denies: easy bruising or easy bleeding All/Imm: Denies: tongue swelling, facial swelling or acute wheezing Medications/Allergies Home Medications ?Medication ?Instructions ?Recorded ?Confirmed ?Last Taken ?Type cholecalciferol (vitamin D3) 25 25 mcg PO DAILY 01/01/21 06/22/24 Unknown History mcg (1,000 unit) capsule ascorbic acid (vitamin C) 1,000 mg 2 g PO DAILY 03/20/21 06/22/24 Unknown History tablet primidone 50 mg tablet 50 mg PO .HS 03/20/21 06/22/24 Unknown History CPAP #1 ea 08/07/21 06/22/24 Unknown Rx DME: Walker #1 ea 04/18/22 06/22/24 Unknown Rx Shower chair #1 ea 04/18/22 06/22/24 Unknown Rx fluoxetine 40 mg capsule (Prozac) 40 mg PO BID 21 days #42 caps 04/18/22 06/22/24 Unknown Rx dapagliflozin propanediol 10 mg 10 mg PO QAM #21 tabs 04/24/22 06/22/24 Unknown Rx tablet (Farxiga) allopurinol 300 mg tablet 300 mg PO BID 21 days #42 tabs 07/22/22 06/22/24 Unknown Rx rosuvastatin 10 mg tablet (Crestor) 10 mg PO DAILY #21 tabs 07/22/22 06/22/24 Unknown Rx amlodipine 10 mg tablet 10 mg PO DAILY #90 tabs 08/12/22 06/22/24 Unknown Rx aspirin 81 mg tablet,delayed 162 mg PO DAILY 08/12/22 06/22/24 Unknown History release (Adult Aspirin Regimen) clonazepam 0.5 mg tablet 0.5 mg PO .HS 08/12/22 06/22/24 Unknown History albuterol sulfate 90 mcg/actuation 2 puff inhalation Q6H 06/22/24 06/22/24 Unknown History aerosol inhaler isosorbide mononitrate 30 mg 30 mg PO DAILY 06/22/24 06/22/24 Unknown History tablet,extended release 24 hr tamsulosin 0.4 mg capsule 0.4 mg PO QPM 06/22/24 06/22/24 Unknown History tramadol 50 mg tablet 50 mg PO PRN PRN Pain 06/22/24 06/22/24 Unknown History Allergies Allergy/AdvReac Type Severity Reaction Status Date / Time naproxen Allergy ALGY-Swell Verified 02/07/24 20:37 Lip/Tongue/Throat semaglutide (From Ozempic) AdvReac Intermediate stomach Verified 02/07/24 20:37 pain PFSH Acute PFSH: Medical History (Updated 06/22/24 @ 17:30 by Michael Stokes MD) ALS (amyotrophic lateral sclerosis) DVT (deep venous thrombosis) CKD (chronic kidney disease) stage 2, GFR 60-89 ml/min Erectile dysfunction Hematospermia KAVITHA on CPAP BPH loc w urin obs/LUTS Stroke Parkinson disease Essential hypertension History of kidney stones Mixed hyperlipidemia Restless leg syndrome Anxiety and depression Hesitancy Vitamin D deficiency IBS (irritable bowel syndrome) Gout Surgical History S/P skin and subcutaneous tissue surgery Squamous cell cancer S/P eye surgery Hx of colonoscopy (~2012) History of esophagogastroduodenoscopy (EGD) (~2012) Family History Father , age62 Diabetes Mother , AT AGE 72 Hypertension Lung disease COPD Social History Smoking and tobacco/nicotine status: never used tobacco/nicotine Second hand smoke exposure: No Alcohol intake: never Substance/Drug Use: unknown Adopted: No Caregiver/support person: No Lives independently: Yes Household members: spouse Housing: House Marital status: Number of children: 3 Current occupational status: disabled Current occupation: [employer] TEMPORARILY DISABLED Do you think of yourself as: Straight/Heterosexual Current gender identity: Male Vitals/I&O/Wt Last Vital Signs Temp 98.5 F 06/22/24 13:36 Pulse 73 06/22/24 16:20 Resp 16 06/22/24 16:20 BP 113/72 06/22/24 16:20 Pulse Ox 92 06/22/24 16:20 O2 Del Method CPAP 06/22/24 14:54 Weight last 48 hrs Weight 117.48 kg Physical Exam Narrative: General: No acute distress, AO x3, chronically sick appearing, HEENT: PERRLA, pupils bilaterally equal and reactive Chest: Bilateral bronchial breath sounds, occasional rhonchi, coarse crackles present in right lower zone CVS: S1-S2 regular, no murmurs, no tachycardia, no gallops, no rubs Abdomen: Soft, nontender, no organomegaly, bowel sounds present Neuro: No focal deficits, no facial deformity, Data 06/22/24 13:15 06/22/24 13:15 Micro: Microbiology 06/22/24 13:21 Blood Culture - Preliminary Blood SPECIMEN COLLECTED 06/22/24 13:15 Blood Culture - Preliminary Blood SPECIMEN COLLECTED A&P Assessment and plan (1) Acute on chronic hypoxic respiratory failure: Most likely in setting of combination of poor respiratory failure due to ALS, obstructive sleep apnea, recent influenza A with the possibility of pneumonia. Patient does have consolidation in right lower lobe, leukocytosis. Oxygen supplementation keeping saturation over 90%. CPAP as needed. DuoNeb every 6 hour, Pulmicort twice daily. (2) Pneumonia: Failure to outpatient treatment with doxycycline. Check D-dimer. Check sputum culture, blood culture, MRSA swab, trend procalcitonin, bacterial antigen. For now start patient on IV vancomycin and Zosyn. If MRSA swab is negative will discontinue vancomycin. (3) Elevated d-dimer: Gives history of DVT in the past. Was on anticoagulation around 10 years ago. Recently diagnosed of SVT. D-dimer elevated. Check CTA. Check lower limb Dopplers. Anticoagulation if positive. (4) KAVITHA on CPAP: (5) Essential hypertension: Goal blood pressure less than 140/90 mmHg. Continue with home dose of amlodipine. Will restart home dose of Imdur if blood pressure is elevated. (6) Diabetes mellitus: Check A1c. Hold off on OHA. Insulin sliding scale at low-dose protocol. Qualifiers: Diabetes mellitus type: type 2 Diabetes mellitus technician terminal and repeater insulin use: without technician terminal and repeater use Diabetes mellitus complication status: with other specified complication Qualified Code(s): E11.69 - Type 2 diabetes mellitus with other specified complication (7) ALS (amyotrophic lateral sclerosis): Check NIF daily. Continue with chronic home medications including Klonopin 0.5 mg daily nightly, Prozac 40 mg twice daily, primidone 50 mg bedtime. Follows up with ALS clinic at [facility]. Start on gentle IV hydration with NS at 50 cc/h (8) Failure of outpatient treatment: (9) Anxiety and depression: Plan CODE STATUS: Discussed in detail with the patient. Spouse will be the DPOA. He does not want any heroic measures or mechanical ventilation. DNR/DNI Protonix OPD prophylaxis Heparin 5000 Q12 hourly for DVT prophylaxis PDMP PDMP Reviewed: Not Reviewed Attestations Medical Necessity Statement*: Admission for more than 2 midnights for management of acute on chronic hypoxia in setting of pneumonia, elevated dimer while PE is ruled out, recent influenza A in a patient with history of ALS, CPAP dependent with failure of outpatient treatment Diagnoses Acute on chronic hypoxic respiratory failure J96.21 Pneumonia J18.9 Elevated d-dimer R79.89 KAVITHA on CPAP G47.33; Z99.89 Essential hypertension I10 Type 2 diabetes mellitus with other specified complication, without long-term current use of insulin E11.69 Diabetes mellitus type: type 2 Diabetes mellitus technician terminal and repeater insulin use: without nursing home use Diabetes mellitus complication status: with other specified complication ALS (amyotrophic lateral sclerosis) G12.21 Failure of outpatient treatment Z78.9 Anxiety and depression F41.9; F32.9
--- NOTE | 2024-06-22 17:21 | PHA.VACGOAL ---
Vancomycin Goal - Goal Vancomycin Goal:: 15-20 mg/L Vancomycin Indication:: Pneumonia - Therapy Current therapy:: Pip/Tazo Day of therpy:: Day []of [] . Actual body weight (kg): 253 lb 6 oz - Data Labs: WBC 17.05 10^3/uL (3.29-11.43) H 06/22/24 13:15 RBC 5.88 10^6/uL (3.85-5.65) H 06/22/24 13:15 Hgb 18.10 g/dL (11.27-16.99) H 06/22/24 13:15 Hct 52.4 % (37-53) 06/22/24 13:15 MCV 89.1 fl (82-101) 06/22/24 13:15 MCH 30.8 pg (27-33) 06/22/24 13:15 MCHC 34.5 g/dL (30-55) 06/22/24 13:15 RDW 14.4 % (12.1-15.1) 06/22/24 13:15 Sodium 135 mmol/L (136-145) L 06/22/24 13:15 Potassium 4.4 mmol/L (3.5-5.1) 06/22/24 13:15 Chloride 100 mmol/L (98-107) 06/22/24 13:15 Carbon Dioxide 21 mmol/L (22-29) L 06/22/24 13:15 Anion Gap 18.4 (5-19) 06/22/24 13:15 BUN 20 mg/dL (8-23) 06/22/24 13:15 Creatinine 1.0 mg/dL (0.7-1.2) 06/22/24 13:15 GFR Calculation 76.0 mL/min (90-130) L 06/22/24 13:15 Last dialysis session:: N/A Treatment plan:: new consult Regimen:: INITIAL LODAING DOSE OF 3000 MG PER DOSING PROTOCOL MAINTENANCE DOSE OF 1250 MG Q8H Follow up:: WILL CONTINUE TO MONITOR AND FOLLOW UP DAILY
--- NOTE | 2024-06-22 17:31 | USR_ITS ---
PROCEDURE INFORMATION: Exam: US Duplex Lower Extremity Veins, Bilateral Exam date and time: 06/22/2024 7:58 PM Age: 63 years old Clinical indication: Other: Elevated d-dimer and history of rle dvt 2014 with subsequent superficial rle thrombosis 2016; Additional info: Elevated dimer, history of dvt TECHNIQUE: Imaging protocol: Real-time duplex ultrasound of the bilateral extremities with 2-D medrano scale, color Doppler flow and spectral waveform analysis including responses to compression and other maneuvers (when performed) with image documentation. Complete exam focused on the lower extremity veins. COMPARISON: MR knee LT wo con* [id number] 07/19/2019 1:17 PM FINDINGS: Right deep veins: Partial occlusive thrombus in the right superficial femoral vein, right popliteal vein and right posterior tibial vein. Left deep veins: Partial occlusive thrombus in the left common femoral vein. The left superficial femoral vein and popliteal vein are patent. Superficial veins: The right greater saphenous vein at the saphenofemoral junctions is patent without thrombus. The left greater saphenous vein is partially thrombosed. Soft tissues: Unremarkable. US/CV venous duplex [facility] [id number] IMPRESSION: 1. Partial occlusive thrombus in the right superficial femoral vein, right popliteal vein and right posterior tibial vein. 2. Partial occlusive thrombus in the left common femoral vein and left greater saphenous vein.
[2024-06-22] MEDS: pantoprazole 40 mg SDV IVP (17:33)
[2024-06-22] MEDS: nystatin powder 15 gm Btl 1 APPLIC TOPICAL (17:33)
[2024-06-22] MEDS: allopurinol 300 mg Tablet PO (17:34)
[2024-06-22] MEDS: vancomycin 3,000 MG/600 ML PIGGYBACK 200 MG IV (17:34)
[2024-06-22] MEDS: docusate sodium 100 mg Capsule PO (17:34)
[2024-06-22] MEDS: fluoxetine 20 mg Capsule 40 MG PO (17:34)
[2024-06-22 18:04] LABS: Procalcitonin 0.09 ng/mL (0-0.5); Thyroid Stimulating Hormone 1.71 uIU/mL (0.27-4.20); Vitamin B12 1675 pg/mL (232-1245)
[2024-06-22 18:15] LABS: Iron 27 ug/dL (59-158); Total Iron Binding Capacity 224 mcg/dl; Unsaturated Iron Binding 197 ug/dL (112-347)
[2024-06-22 18:32] LABS: Add Urine Microscopic? NO
[2024-06-22 18:33] LABS: Bilirubin Urine Negative (Negative); Blood Urine Negative (Negative); Glucose Urine UA 1+ (Normal); Ketones Urine Negative (Negative); Leukocyte Esterase Urine Negative (Negative); Nitrate Urine Negative (Negative); Protein Urine 2+ (Negative); Urine Appearance Clear (CLEAR); Urine Color Yellow (Yellow); Urobilinogen Urine 0.2 mg/dL (Negative)
[2024-06-22 18:36] LABS: Specific Gravity, Urine 1.033 (1.005-1.030)
[2024-06-22 18:38] LABS: Bacteria Urine None Seen /hpf; Hyaline Casts Urine 2.05 /lpf; RBC Urine 0-2 /hpf (0-2); Squamous Epithelial Cell Urine 0-5 /hpf (0-5); WBC Urine 0-5 /hpf (0-5)
[2024-06-22 18:44] LABS: Add Urine Culture? No; Charge for UA Resulting for Rev
--- NOTE | 2024-06-22 18:51 | ECG_ITS ---
[facility] Test Date: 2024-06-22 Pat Name: Alec Parr Department: Room: 276 Gender: Male Application Development Team Lead: : 1960 Requested By: Juliet Mckinney Order Number: [id number] Abbey MD: Kevin Nolan M.D. Measurements Intervals [place] Rate: 71 P: 26 KS: 146 QRS: -23 QRSD: 97 T: 17 QT: 406 QTc: 443 Interpretive Statements SINUS RHYTHM BORDERLINE LEFT AXIS DEVIATION [QRS AXIS < -20] LOW QRS VOLTAGE IN PRECORDIAL LEADS [QRS DEFLECTION < 1.0 mV IN CHEST LEADS] NONSPECIFIC ST & T-WAVE ABNORMALITY Compared to ECG 06/22/2024 13:57:11 No significant changes Electronically Signed On 06-24-2024 22:21:17 YOUTH SUPPORT WORKER by Kevin Nolan M.D. [email or web address] [email or web address]
[2024-06-22 19:40] LABS: Estmated Average Glucose 126
[2024-06-22 19:49] LABS: MRSA PCR OZH (swab) NOT DETECTED (Negative)
[2024-06-22 20:23] LABS: Troponin 5 6HR 10.38 ng/L (0-15); Troponin 5 6HR Delta 2.38 ng/L (0-12)
[2024-06-22 20:30] LABS: Glucose Point of Care 156 mg/dL (70-110)
[2024-06-22] MEDS: ipratropium-albuterol 3 mL Neb INHALATION (20:33)
[2024-06-22] MEDS: budesonide 0.5 mg/2 mL Neb INHALATION (20:34)
[2024-06-22] MEDS: sodium chloride 0.9% 1,000 ML 50 ML IV (20:38)
[2024-06-22] MEDS: CLONazepam 0.5 mg Tablet PO (20:38)
[2024-06-22] MEDS: primidone 50 mg Tablet PO (20:38)
[2024-06-22] MEDS: tamsulosin 0.4 mg Capsule PO (20:38)
[2024-06-22] MEDS: iohexol 350 mg/mL 500 mL Btl (per mL) IV (21:28)
[2024-06-22] MEDS: piperacillin-tazobactam 3.375 GM in sodium chloride 0.9% (plus) 50 ML IV (22:33)
[2024-06-22] MEDS: enoxaparin 120 mg/0.8 mL Syringe 110 MG SUBCUT (22:33)
[2024-06-22] MEDS: hydrocortisone 100 mg/2 mL SDV 50 MG IVP (22:33)
[2024-06-23] VITALS (11 sets, daily range): BP systolic 111–139; BP diastolic 70–77; PULSE 63–80; RESP 18–20; TEMP 36.4–37; O2SAT 91–97
[2024-06-23] MEDS: vancomycin 1,250 MG/250 ML PIGGYBACK 166.67 MG IV ×2 (02:09→10:51)
[2024-06-23] MEDS: ipratropium-albuterol 3 mL Neb INHALATION ×4 (02:49→21:23)
[2024-06-23 05:30] LABS: Basophils # 0.1 10^3/uL (0.0-0.1); Basophils % 0.5 %; Eosinophils % 0.1 %; Hematocrit 47.5 % (37-53); Lymphocytes # 1.2 10^3/uL (0.8-4.8); Lymphocytes % 8.4 %; Mean Corpuscular HGB Conc 34.1 g/dL (30-55); Mean Corpuscular Hemoglobin 29.9 pg (27-33); Mean Corpuscular Volume 87.8 fl (82-101); Mean Platelet Volume 10.2 fL (7.4-10.4); Monocytes # 0.8 10^3/uL (0.2-0.9); Monocytes % 5.3 %; Neutrophils # 12.07 10^3/uL (1.8-7.7); Neutrophils % 84.6 %; Nucleated Red Blood Cells % 0 %; Platelet Count 252 10^3/cmm (157-399); Red Blood Count 5.41 10^6/uL (3.85-5.65); Red Cell Distribution Width 14.4 % (12.1-15.1); White Blood Count 14.25 10^3/uL (3.29-11.43)
[2024-06-23] MEDS: piperacillin-tazobactam 3.375 GM in sodium chloride 0.9% (plus) 50 ML IV ×3 (05:48→21:13)
[2024-06-23 05:58] LABS: Alanine Aminotransferase 50 U/L (0-41); Albumin Level 3.5 g/dL (3.5-5.2); Alkaline Phosphatase 113 U/L (40-130); Anion Gap 16.3 (5-19); Aspartate Amino Transferase 23 U/L (0-40); Blood Urea Nitrogen 17 mg/dL (8-23); Calcium 9.5 mg/dL (8.5-10.5); Carbon Dioxide 21 mmol/L (22-29); Chloride 102 mmol/L (98-107); Creatinine Clr Calc Pharmacy 92.4875; Globulin 3.6 g/dL (1.3-4.6); Glucose 170 mg/dL (65-115); Magnesium 2.3 mg/dL (1.7-2.3); Osmolality Calculated 286 mOsm/kg (285-295); Phosphorus 3.5 mg/dL (2.5-4.5); Potassium 4.3 mmol/L (3.5-5.1); Sodium 135 mmol/L (136-145); Total Bilirubin 0.4 mg/dL (0.15-1.2); Total Protein 7.1 g/dL (6.6-8.7)
[2024-06-23 06:01] LABS: Procalcitonin 0.08 ng/mL (0-0.5)
[2024-06-23 06:02] LABS: Chol HDL Ratio 2.78 mg/dL (1.0-5.00); Cholesterol 111 mg/dL (0-200); HDL Cholesterol 40 mg/dL (60-100); LDL Cholesterol Calculated 56 mg/dL (50-129); Triglycerides 77 mg/dL (0-150)
[2024-06-23 06:10] LABS: Glucose Point of Care 181 mg/dL (70-110)
[2024-06-23 07:46] LABS: Folate Level 19.7 ng/mL (4.5-32.2)
[2024-06-23] MEDS: fluoxetine 20 mg Capsule 40 MG PO ×2 (08:45→17:04)
[2024-06-23] MEDS: atorvastatin 40 mg Tablet 20 MG PO (08:45)
[2024-06-23] MEDS: docusate sodium 100 mg Capsule PO ×2 (08:46→17:04)
[2024-06-23] MEDS: aspirin 81 mg EC Tablet 162 MG PO (08:46)
[2024-06-23] MEDS: allopurinol 300 mg Tablet PO ×2 (08:46→17:04)
[2024-06-23] MEDS: lactulose oral liq 20 gm/30 mL UDC 10 GM PO (08:50)
[2024-06-23] MEDS: nystatin powder 15 gm Btl 1 APPLIC TOPICAL ×2 (08:52→17:30)
[2024-06-23] MEDS: budesonide 0.5 mg/2 mL Neb INHALATION ×2 (08:58→21:24)
--- NOTE | 2024-06-23 09:03 | PC.CHAP ---
Pastoral Care Encounter/Spiritual Assessment Type of Contact [] Declined revenue specialist visit [] Patient/Family/Request visit [] Outpatient visit [] Follow-up visit [] Physician referral [] Code/Alert [x] Routine visit [] Staff referral [] Actively dying [] Patient sleeping [x] Family support [] [] Out of room [] Palliative care [] [] Receiving care in room [] Pre-surgical visit [] Trauma [] Long length of stay [] ICU visit [] Other: Relational/Emotional Strength [x] Patient feels connected with others/family/visitors/staff [] Distress [] Loneliness/isolation [] Abandonment Spirituality of Patient [x] Person of Porsche [] Attends Rastafari of their Porsche [x] Believes in Prayer [] Reads Bible or Jainism materials [] There are Spiritual issues to be addressed Military Pay Technician Interventions [x] Prayer [x] Active listening [x] Non-anxious presence [x] Spiritual/emotional support [] Crisis/trauma care [] Spiritual counseling [] Bereavement support [] Provided bereavement packet [] Provided Bible/devotional materials [] Provided toy/stuffed animal, coloring book to patient or family member [] Provided Communion [] Anointing/[place] [] Salvation [x] Completed spiritual assessment [] Other: Impact on Illness or Injury [] Angry [] Fearful [] Anxious [] Often cries [] Exhaustion [] Unable to work [] Unable to attend congregational [] Unable to walk/stand [] Unable to read [] Unable to drive [] Unable to eat/drink [] Unable to sleep [] Unable to be with family [] Patient intubated [] Other: Summary Time spent with patient 5 min
[2024-06-23] MEDS: enoxaparin 120 mg/0.8 mL Syringe 110 MG SUBCUT (10:45)
[2024-06-23 11:45] LABS: Glucose Point of Care 185 mg/dL (70-110)
--- NOTE | 2024-06-23 13:59 | P.PN_ITS ---
Subjective 2 Subjective: No acute events overnight. Today morning patient states he is feeling better. Sitting up in chair. Family at bedside. Remains on room air. Continues to have cough. Able to bring up sputum. No chest pain on coughing today. Vitals/I&O/Wt Last Vital Signs Temp 98.2 F 06/23/24 13:00 Pulse 80 06/23/24 13:00 Resp 18 06/23/24 13:00 BP 139/75 06/23/24 13:00 Pulse Ox 96 06/23/24 13:00 O2 Del Method Room Air 06/23/24 08:58 O2 Flow Rate 21 06/23/24 02:50 06/22/24 06/23/24 06/23/24 22:59 06:59 14:59 Intake Total 1231.667 / 1231.667 780 / 2011.667 900 / 900 Output Total 850 / 850 800 / 1650 Balance 381.667 / 381.667 -20 / 361.667 900 / 900 Weight last 48 hrs Weight 69.808 kg Weight 115.031 kg Weight 114.929 kg Weight 117.48 kg Physical Exam 2 Narrative: General: No acute distress, AO x3, chronically sick appearing, HEENT: PERRLA, pupils bilaterally equal and reactive Chest: Bilateral bronchial breath sounds, occasional rhonchi, coarse crackles present in right lower zone CVS: S1-S2 regular, no murmurs, no tachycardia, no gallops, no rubs Abdomen: Soft, nontender, no organomegaly, bowel sounds present Neuro: No focal deficits, no facial deformity, Urinary Catheter Management: Dumont: Cath Placed During This Visit: yes Reason for Continuing Indwelling Catheter: Acute Urinary Retention or Obstruction Urinary Catheter Date of Insertion: 06/22/24 Urinary Catheter Time of Insertion: 18:19 Data 06/23/24 05:20 06/23/24 05:20 Micro: Microbiology 06/22/24 13:21 Blood Culture - Preliminary Blood NEGATIVE TO DATE 06/22/24 13:15 Blood Culture - Preliminary Blood NEGATIVE TO DATE A&P Assessment and plan (1) Acute on chronic hypoxic respiratory failure: Most likely in setting of combination of bilateral pulmonary embolism along with poor respiratory failure due to ALS, obstructive sleep apnea, recent influenza A with the possibility of pneumonia. Patient does have consolidation in right lower lobe, leukocytosis. Oxygen supplementation keeping saturation over 90%. CPAP as needed. DuoNeb every 6 hour, Pulmicort twice daily. (2) Pneumonia: Failure to outpatient treatment with doxycycline. Follow-up blood culture, sputum culture not collected, MRSA swab negative, trend procalcitonin. Continue with IV Zosyn. Discontinue vancomycin. Add azithromycin. (3) KAVITHA on CPAP: (4) Essential hypertension: Goal blood pressure less than 140/90 mmHg. Continue with home dose of amlodipine. Will restart home dose of Imdur if blood pressure is elevated. (5) Diabetes mellitus: A1c of 6. Hold off on OHA. Insulin sliding scale at low-dose protocol. Qualifiers: Diabetes mellitus type: type 2 Diabetes mellitus half-way insulin use: without regional intermodal truck driver use Diabetes mellitus complication status: with other specified complication Qualified Code(s): E11.69 - Type 2 diabetes mellitus with other specified complication (6) ALS (amyotrophic lateral sclerosis): Low NIF. Start on hydrocortisone 50 mg every 12 for now. Continue with chronic home medications including Klonopin 0.5 mg daily nightly, Prozac 40 mg twice daily, primidone 50 mg bedtime. Follows up with ALS clinic at [facility]. Start on gentle IV hydration with NS at 50 cc/h (7) Failure of outpatient treatment: (8) Anxiety and depression: (9) Bilateral pulmonary embolism: Seen on CTA. Bilateral significant PE. Appreciate echocardiogram. No concern for right heart strain. Continued anticoagulation. Given need for possible IVC filter placement will start on heparin drip 12 hours after the last Lovenox dose. (10) DVT, bilateral lower limbs: Significant bilateral DVT. Given PE as well we will consult cardiology for possible IVC filter placement. Plan CODE STATUS: Discussed in detail with the patient. Spouse will be the DPOA. He does not want any heroic measures or mechanical ventilation. DNR/DNI Protonix OPD prophylaxis Heparin 5000 Q12 hourly for DVT prophylaxis PDMP PDMP Reviewed: Not Reviewed Attestations 2 Medical Necessity Statement*: Requires further hospitalization for management of hypoxia in setting of bilateral PE with DVT while patient requires an IVC filter, superimposed bacterial pneumonia in a patient with baseline ALS, CPAP dependent Diagnoses Acute on chronic hypoxic respiratory failure J96.21 Pneumonia J18.9 KAVITHA on CPAP G47.33; Z99.89 Essential hypertension I10 Type 2 diabetes mellitus with other specified complication, without long-term current use of insulin E11.69 Diabetes mellitus type: type 2 Diabetes mellitus regional intermodal truck driver insulin use: without regional intermodal truck driver use Diabetes mellitus complication status: with other specified complication ALS (amyotrophic lateral sclerosis) G12.21 Failure of outpatient treatment Z78.9 Anxiety and depression F41.9; F32.9 Bilateral pulmonary embolism I26.99 DVT, bilateral lower limbs I82.403
[2024-06-23] MEDS: hydrocortisone 100 mg/2 mL SDV 50 MG IVP (14:00)
[2024-06-23] MEDS: azithromycin 250 mg Tablet 500 MG PO (14:52)
[2024-06-23 16:58] LABS: Glucose Point of Care 178 mg/dL (70-110)
[2024-06-23] MEDS: sodium chloride 0.9% 1,000 ML 50 ML IV (17:03)
[2024-06-23] MEDS: pantoprazole 40 mg SDV IVP (17:04)
[2024-06-23] MEDS: baclofen 10 mg Tablet PO (17:04)
[2024-06-23] MEDS: tamsulosin 0.4 mg Capsule PO (17:04)
[2024-06-23] MEDS: heparin drip 25,000 UNIT/500 ML PREMIX 20 UNIT IV (17:08)
--- NOTE | 2024-06-23 17:11 | P.CONIM_ITS ---
<Statement entered by Bassam Davis MD - 06/23/24 23:27> Patient was evaluated and cared for in conjunction with an advanced practice practitioner. I personally examined the patient and reviewed the chart and all pertinent data including imaging, telemetry, and laboratory results. I discussed the patient in detail with the advanced practice practitioner. Please see their note for complete H&P testing result and agreed upon plan of care for the patient. 69-year-old male who is wheelchair and bedbound due to ALS obesity with bilateral segmental pulmonary embolism however without hemodynamic compromise and no strain on echo documented for right heart noted to have proximal DVT including nonocclusive right great saphenous, left common femoral vein without absolute contraindication to anticoagulation on heparin, we have been asked to assess him for possibility of IVC filter in order to prevent recurrent embolic episode GENERAL: Patient is alert, awake and oriented x3. HEART: Regular S1 and S2. No murmur, rub or gallop. LUNGS: Clear to auscultate bilaterally. CENTRAL NERVOUS SYSTEM: Grossly nonfocal. EXTREMITIES: Lower extremities with out edema bilaterally. Assessment and plan Segmental bilateral pulmonary embolism without hemodynamic compromise Proximal bilateral DVT Tolerating anticoagulation At the request of medicine colleagues, we assessed the patient for IVC filter. Since he is tolerating anticoagulation without absolute contraindication for it and because of the fact he has proximal but nonocclusive DVT of left common femoral and right great saphenous vein without evidence of right heart strain on echo therefore at the moment there is no class I indication for IVC filter placement, however if patient develop any evidence of GI bleed or right dvt extention on anticoagulation with suspicion that it may can hinder his ability to take long-term anticoagulation in the presence of large segmental bilateral PE with proximal DVT then he may can be a candidate for retrievable IVC filter placement. Please do not hesitate to contact us if need our further assistance. Consider switching to oral anticoagulation such as Xarelto or Eliquis. Providers/Reason For Consult 2 Consulting Physician/Specialty*: Bassam Davis MD Reason for Consult*: Possible IVC Filter Placement Requesting Physician: Michael Stokes MD Attending Physician: Michael Stokes MD History of Present Illness History of Present Illness This is a very pleasant 63-year-old gentleman history of ALS, family history of lower extremity DVT, history of previous lower extremity DVT, CPAP as needed, hypertension, hyperlipidemia, type 2 diabetes, CKD. He came in to the ER due to worsening right sided chest pain cough and shortness of breath. He recently had the flu about a week ago. D-dimer was elevated and a CTA of the chest showed extensive pulmonary emboli in the segmental pulmonary artery supplying the right lower lobe and left lower and left upper lobe with evidence of right heart strain. Also seen was pulmonary infarct. Venous duplex was done that showed partial occlusive thrombus in the right superficial vein, right popliteal vein and posterior tibial vein with partial occlusive thrombus in the left common femoral vein and left greater saphenous vein. Echo was done that showed normal systolic function of 55 to 60%. Currently he has no shortness of breath. Oxygen saturation 94% on room air. Blood pressure well-controlled. He reports that last time he had this DVT many years ago he was placed on anticoagulant for about 1 year and then it was discontinued. He states that in the hospital at that time he did have some issues with bleeding in his urine but that resolved. Currently he is on a heparin drip without any signs or symptoms of bleeding. H&H is stable. Review of Systems 2 Narrative: Consitutional: denies fever, chills, body aches, or changes in appetite, denies abnormal weight loss Eyes: Denies changes in vision Card: Denies chest pain, palpitations, irregular heart rhythm, edema, syncope, shortness of breath, orthopnea, leg pain with exertion Resp: Denies shortness of breath, denies hemoptysis, denies cough GI: denies abdominal pain, denies nausea or voimting, denies blood in stool : denies blood in urine, denies dysuria Musc: Denies extremity pain, denies limited range of motion or recent injury Skin: Denies rash, lesions, or wounds, denies changes to skin color Neuro: Denies nubmness in extremities, h/a, s/s of stroke José: Denies easy bruiding/bleeding Medications/Allergies Home Medications ?Medication ?Instructions ?Recorded ?Confirmed ?Last Taken ?Type cholecalciferol (vitamin D3) 25 25 mcg PO DAILY 06/22/24 Unknown History mcg (1,000 unit) capsule ascorbic acid (vitamin C) 1,000 mg 2 g PO DAILY 06/22/24 Unknown History tablet primidone 50 mg tablet 50 mg PO .HS 03/20/21 Unknown History CPAP #1 ea 08/07/21 06/22/24 Unkn own Rx DME: Walker #1 ea 04/18/22 06/22/24 Unkn own Rx Shower chair #1 ea 04/18/22 06/22/24 Unkn own Rx fluoxetine 40 mg capsule (Prozac) 40 mg PO BID 21 days #42 caps 04/18/22 06/22/24 Unknown Rx dapagliflozin propanediol 10 mg 10 mg PO QAM #21 tabs 04/24/22 06/22/24 Unknown Rx tablet (Farxiga) allopurinol 300 mg tablet 300 mg PO BID 21 days #42 ta bs 07/22/22 06/22/24 Unknown Rx rosuvastatin 10 mg tablet (Crestor) 10 mg PO DAILY #21 tabs 07/22/22 06/22/24 Unknown Rx amlodipine 10 mg tablet 10 mg PO DAILY #90 tabs 07/1806/22/24 Unknown Rx aspirin 81 mg tablet,delayed 162 mg PO DAILY 08/12/22 06/22/24 Unknown History release (Adult Aspirin Regimen) clonazepam 0.5 mg tablet 0.5 mg PO .HS 08/12/2206/22 Unknown History albuterol sulfate 90 mcg/actuation 2 puff inhalation Q 6H 06/22/24 06/22/24 Unknown History aerosol inhaler baclofen 10 mg tablet 10 mg PO BID 06/22/2406/21/24 19:00 History isosorbide mononitrate 30 mg 30 mg PO DAILY 06/22/24 0 06/22/24 Unknown History tablet,extended release 24 hr tamsulosin 0.4 mg capsule 0.4 mg PO QPM 06/22/2406/22 Unknown History tramadol 50 mg tablet 50 mg PO PRN PRN Pain 06/22/24 Unknown History Allergies Allergy/AdvReac Type Severity Reaction Status Date / Time naproxen Allergy ALGY-Swell Verified 02/07/24 20:37 Lip/Tongue/Throat semaglutide (From Ozempic) AdvReac Intermediate stomach Verified 02/07/24 20:37 pain Current Medications Generic Name Dose Route Start Last Admin Trade Name Freq PRN Reason Stop Dose Admin Albuterol/Ipratropium 3 ml 06/22/24 20:00 06/23/24 14:00 Ipratropium-Albuterol 3 Ml Neb INHALATION 3 ml Q6H.RESP NEIL Administration Allopurinol 300 mg 06/22/24 18:00 06/23/24 08:46 Allopurinol 300 Mg Tablet PO 300 mg BID NEIL Administration Aspirin 162 mg 06/23/24 09:00 06/23/24 08:46 Aspirin 81 Mg Ec Tablet PO 162 mg DAILY NEIL Administration Atorvastatin Calcium 20 mg 06/23/24 09:00 06/23/24 08:45 Atorvastatin 40 Mg Tablet PO 20 mg DAILY NEIL Administration Azithromycin 500 mg 06/23/24 14:05 06/23/24 14:52 Azithromycin 250 Mg Tablet PO 500 mg DAILY NEIL Administration Protocol Clonazepam 0.5 mg 06/22/24 21:00 06/22/24 20:38 Clonazepam 0.5 Mg Tablet PO 0.5 mg BEDTIME NEIL Administration Docusate Sodium 100 mg 06/22/24 18:00 06/23/24 08:46 Docusate Sodium 100 Mg Capsule PO 100 mg BID NEIL Administration Fluoxetine HCl 40 mg 06/22/24 18:00 06/23/24 08:45 Fluoxetine 20 Mg Capsule PO 40 mg BID NEIL Administration Hydrocortisone Sodium Succinate 50 mg 06/23/24 12:30 06/23/24 14:00 Hydrocortisone 100 Mg/2 Ml Sdv IVP 50 mg Q12H NEIL Administration Sodium Chloride 1,000 mls @ 50 mls/hr 06/22/24 17:08 06/22/24 22:42 Sodium Chloride 0.9% IV 50 mls/hr .Q20H NEIL Infusion Piperacillin Sod/Tazobactam 50 mls @ 12.5 mls/hr 06/22/24 18:00 06/23/24 14:05 Sod 3.375 gm/ Sodium Chloride IV 12.5 mls/hr Q8H NEIL Administration Lactulose 10 gm 06/22/24 17:08 06/23/24 08:50 Lactulose Oral Liq 20 Gm/30 Ml Udc PO 10 gm DAILY PRN Administration Constipation (see protocol) Protocol Nystatin 1 applic 06/22/24 18:00 06/23/24 08:52 Nystatin Powder 15 Gm Btl TOPICAL 1 applic BID NEIL Administration Pantoprazole Sodium 40 mg 06/22/24 17:08 06/22/24 17:33 Pantoprazole 40 Mg Sdv IVP 40 mg Q24H NEIL Administration Primidone 50 mg 06/22/24 21:00 06/22/24 20:38 Primidone 50 Mg Tablet PO 50 mg BEDTIME NEIL Administration Tamsulosin HCl 0.4 mg 06/22/24 18:00 06/22/24 20:38 Tamsulosin 0.4 Mg Capsule PO 0.4 mg QPM NEIL Administration PFSH Acute 2 PFSH: Medical History (Updated 06/23/24 @ 14:00 by Michael Stoeks MD) ALS (amyotrophic lateral sclerosis) DVT (deep venous thrombosis) CKD (chronic kidney disease) stage 2, GFR 60-89 ml/min Erectile dysfunction Hematospermia KAVITHA on CPAP BPH loc w urin obs/LUTS Stroke Parkinson disease Essential hypertension History of kidney stones Mixed hyperlipidemia Restless leg syndrome Anxiety and depression Hesitancy Vitamin D deficiency IBS (irritable bowel syndrome) Gout Surgical History S/P skin and subcutaneous tissue surgery Squamous cell cancer S/P eye surgery Hx of colonoscopy (~2012) History of esophagogastroduodenoscopy (EGD) (~2012) Family History Father , age62 Diabetes Mother , AT AGE 72 Hypertension Lung disease COPD Social History Smoking and tobacco/nicotine status: never used tobacco/nicotine Second hand smoke exposure: No Alcohol intake: never Substance/Drug Use: unknown Adopted: No Caregiver/support person: No Lives independently: Yes Household members: spouse Housing: House Marital status: Number of children: 3 Current occupational status: disabled Current occupation: [employer] TEMPORARILY DISABLED Do you think of yourself as: Straight/Heterosexual Current gender identity: Male Vitals/I&O/Wt Last Vital Signs Temp 98.2 F 06/23/24 13:00 Pulse 76 06/23/24 14:06 Resp 18 06/23/24 14:00 BP 139/75 06/23/24 13:00 Pulse Ox 94 06/23/24 14:00 O2 Del Method Room Air 06/23/24 14:00 O2 Flow Rate 21 06/23/24 02:50 06/23/24 06/23/24 06/23/24 06:59 14:59 22:59 Intake Total 780 / 2010.667 900 / 900 Output Total 800 / 1650 Balance -.667 900 / 900 Weight last 48 hrs Weight 153 lb 14.4 oz Weight 253 lb 9.6 oz Weight 253 lb 6 oz Weight 259 lb Physical Exam 2 Narrative: General: No apparent distress, healthy appearing, well nourished HENMT: normoceophalic Neck: No carotid bruit bilaterally Muskuloskeletal: Full ROM Respiratory: Normal respiratory effort, clear to auscultation bilaterally throughout all lung mendoza, no use of accessory muscles Cardio: No JVD, regular rate, regular rhythm, S1 S2 normal, no murmurs, peripheral pulses 2+ throughout GI: Normal to inspection, nondistended Extremities: Full ROM, normal, normal capillary refill, no cyanosis, bilateral lower extremities swollen up the the calf Neuro: Alert and oriented x4, no focal motor deficits Psych: Affect normal, denies suicidal ideation, mental status grossly normal Skin: No rashes or lesions noted, no wounds Urinary Catheter Management: Dumont: Cath Placed During This Visit: yes Reason for Continuing Indwelling Catheter: Acute Urinary Retention or Obstruction Urinary Catheter Date of Insertion: 06/22/24 Urinary Catheter Time of Insertion: 18:19 Data 06/23/24 05:20 06/23/24 05:20 Micro: Microbiology 06/22/24 13:21 Blood Culture - Preliminary Blood NEGATIVE TO DATE 06/22/24 13:15 Blood Culture - Preliminary Blood NEGATIVE TO DATE A&P Assessment and plan (1) Elevated d-dimer: (2) Bilateral pulmonary embolism: (3) DVT, bilateral lower limbs: (4) SOB (shortness of breath) on exertion: (5) Essential hypertension: (6) Mixed hyperlipidemia: Plan At this time, patient has no contraindications to anticoagulants. No right heart strain seen on the Echo. There are no class 1 indications for IVC filter seen at this time. I discussed this case with Dr. Davis, and we recommend patient be transitioned to oral anticoagulant. In the past, he states he did have bleeding issues with Warfarin but was on Xarelto for a year without issues. This was 10 years ago per patient. If no s/s of bleeding or contraindications to this, he will not need IVC filter. If patient develops any bleeding issues, this may be addressed in the future. We will futher discuss this with Dr. Stokes. Thank you, for allowing us to care for this very pleasant 63 year old gentleman. PDMP PDMP Reviewed: Not Reviewed Coding Level of Care Code Acute Code for Chg Fwd Diagnoses Elevated d-dimer R79.89 Bilateral pulmonary embolism I26.99 DVT, bilateral lower limbs I82.403 SOB (shortness of breath) on exertion R06.02 Essential hypertension I10 Mixed hyperlipidemia E78.2
[2024-06-23] MEDS: heparin 5,000 unit/mL INJ 1 mL IVP (17:14)
[2024-06-23 20:25] LABS: Glucose Point of Care 202 mg/dL (70-110)
[2024-06-23] MEDS: primidone 50 mg Tablet PO (21:12)
[2024-06-23] MEDS: CLONazepam 0.5 mg Tablet PO (21:12)
--- NOTE | 2024-06-23 22:16 | USCV_ITS ---
Alec Parr Age: 63 Gender: M : 1960 Exam Date: 06/23/2024 01:29 Ordering Phys: Bassam Ramírez MD Technologist: MALIA Exam Location: [facility] [place] Indication: pulmonary embolus. History of ALS on CPAP, HTN, HL, DM2, CKD, recent influenza A, morbid obesity BP: 124 / 68 HR: 64 Rhythm: Sinus Technical Quality: Adequate MEASUREMENTS (Male / Female) Normal Values 2D ECHO LV Diastolic Diameter PLAX 4.8 cm 4.2 - 5.9 / 3.9 - 5.3 cm IVS Diastolic Thickness 0.9 cm 0.6 - 1.0 / 0.6 - 0.9 cm IVS Systolic Thickness 1.7 cm LVPW Diastolic Thickness 1.2 cm 0.6 - 1.0 / 0.6 - 0.9 cm LVPW Systolic Thickness 1.2 cm LVOT Diameter 2.0 cm LV Ejection Fraction 2D Teich 70.3 % LV Ejection Fraction MOD 4C 57.9 % LV Ejection Fraction MOD 2C 60.3 % LV Ejection Fraction 2C AL 59.1 % LA Diameter 4.0 cm Aorta at Sinotubular Diameter 3.3 cm IVC Diameter 1.2 cm M-MODE LA Ao Ratio MM 1.2 AV Cusp Separation MM 1.7 cm DOPPLER AV Peak Velocity 123.0 cm/s LVOT Peak Velocity 101.0 cm/s AV Area Cont Eq vti 2.7 cm squared AV Area Cont Eq pk 2.5 cm squared MV Peak Velocity 100.0 cm/s MV Area PHT 3.1 cm squared Mitral E to A Ratio 0.9 TV Peak Velocity 249.0 cm/s TR Peak Velocity 262.0 cm/s TR Peak Gradient 27.5 mmHg TV Peak E Velocity 57.0 cm/s PV Peak Velocity 98.0 cm/s FINDINGS Left Ventricle Left ventricle is normal in size. LV systolic function is normal with EF of 55-60%. No regional wall motion abnormalities are seen. Right Ventricle Normal in size and function Right Atrium Normal in size Left Atrium Normal in size Mitral Valve Structurally normal mitral valve. Mild mitral regurgitation. Aortic Valve Structurally normal aortic valve. No significant stenosis or regurgitation. Tricuspid Valve Mild tricuspid regurgitation. Pulmonary artery systolic pressure is normal. Pulmonic Valve Not well visualized Pericardium Normal Aorta Normal in size IVC Appears to be normal CONCLUSIONS LV systolic function is normal with EF of 55-60% Mild mitral regurgitation Mild tricuspid regurgitation Compared to prior echocardiogram from 2022, no significant changes are seen Kevin Nolan MD (Electronically Signed) Final Date: 23 June 2024 10:16 S
[2024-06-24] VITALS: BP 112/64; PULSE 80; RESP 17; TEMP 36.7; O2SAT 94
[2024-06-24 00:26] LABS: Partial Thromboplastin Time 93.6 SECONDS (23.9-36.7)
[2024-06-24] MEDS: hydrocortisone 100 mg/2 mL SDV 50 MG IVP (00:34)
[2024-06-24 03:55] VITALS: BP 135/81; PULSE 64; RESP 20; TEMP 36.9; O2SAT 95
[2024-06-24] MEDS: piperacillin-tazobactam 3.375 GM in sodium chloride 0.9% (plus) 50 ML IV (05:27)
[2024-06-24 06:18] LABS: Glucose Point of Care 141 mg/dL (70-110)
[2024-06-24 06:53] LABS: Basophils # 0.1 10^3/uL (0.0-0.1); Basophils % 0.9 %; Eosinophils % 0.3 %; Hematocrit 46.1 % (37-53); Lymphocytes # 1.6 10^3/uL (0.8-4.8); Lymphocytes % 12.4 %; Mean Corpuscular HGB Conc 33.2 g/dL (30-55); Mean Corpuscular Hemoglobin 29.7 pg (27-33); Mean Corpuscular Volume 89.5 fl (82-101); Mean Platelet Volume 10.3 fL (7.4-10.4); Monocytes # 0.6 10^3/uL (0.2-0.9); Monocytes % 4.5 %; Neutrophils # 10.38 10^3/uL (1.8-7.7); Neutrophils % 81.1 %; Nucleated Red Blood Cells % 0 %; Platelet Count 249 10^3/cmm (157-399); Red Blood Count 5.15 10^6/uL (3.85-5.65); Red Cell Distribution Width 14.6 % (12.1-15.1); White Blood Count 12.79 10^3/uL (3.29-11.43)
[2024-06-24 07:08] LABS: Alanine Aminotransferase 41 U/L (0-41); Albumin Level 3.3 g/dL (3.5-5.2); Alkaline Phosphatase 88 U/L (40-130); Anion Gap 14.8 (5-19); Aspartate Amino Transferase 19 U/L (0-40); Blood Urea Nitrogen 14 mg/dL (8-23); Calcium 9.2 mg/dL (8.5-10.5); Carbon Dioxide 20 mmol/L (22-29); Chloride 109 mmol/L (98-107); Creatinine Clr Calc Pharmacy 101.5252; Globulin 3.6 g/dL (1.3-4.6); Glomerular Filtration Rate 85.8 mL/min (90-130); Glucose 141 mg/dL (65-115); Magnesium 2.1 mg/dL (1.7-2.3); Osmolality Calculated 293 mOsm/kg (285-295); Phosphorus 3.2 mg/dL (2.5-4.5); Potassium 3.8 mmol/L (3.5-5.1); Sodium 140 mmol/L (136-145); Total Bilirubin 0.3 mg/dL (0.15-1.2); Total Protein 6.9 g/dL (6.6-8.7)
[2024-06-24 07:16] LABS: Partial Thromboplastin Time 73.7 SECONDS (23.9-36.7)
[2024-06-24 07:35] VITALS: BP 129/80; PULSE 56; O2SAT 97
[2024-06-24 08:00] VITALS: PULSE 65; RESP 22; O2SAT 95
[2024-06-24] MEDS: ipratropium-albuterol 3 mL Neb INHALATION (08:19)
[2024-06-24] MEDS: budesonide 0.5 mg/2 mL Neb INHALATION (08:21)
[2024-06-24] MEDS: aspirin 81 mg EC Tablet 162 MG PO (08:51)
[2024-06-24] MEDS: docusate sodium 100 mg Capsule PO (08:51)
[2024-06-24] MEDS: fluoxetine 20 mg Capsule 40 MG PO (08:51)
[2024-06-24] MEDS: azithromycin 250 mg Tablet 500 MG PO (08:52)
[2024-06-24] MEDS: atorvastatin 40 mg Tablet 20 MG PO (08:52)
[2024-06-24] MEDS: baclofen 10 mg Tablet PO (08:52)
[2024-06-24] MEDS: allopurinol 300 mg Tablet PO (08:52)
[2024-06-24] MEDS: amlodipine 10 mg Tablet PO (08:52)
--- NOTE | 2024-06-24 10:39 | PM.DCS ---
Discharge Providers Date of Admission: 06/22/24 15:58 Date of Discharge: June 24, 2024 Attending Provider at Admission: Michael Stokes MD Attending Provider at Discharge: Michael Stokes MD Consults: Cardiology: Dr. Davis Diagnoses at Discharge Discharge Diagnosis (1) Elevated d-dimer: Status: Acute (2) Bilateral pulmonary embolism: Status: Acute (3) DVT, bilateral lower limbs: Status: Acute (4) SOB (shortness of breath) on exertion: Status: Acute (5) Essential hypertension: Status: Chronic (6) Mixed hyperlipidemia: Status: Chronic Reason for Visit Reason for Visit: Resp Distress Hospital Course Hospital Course Alec Parr is a 63 year old male with past medical history of ALS on CPAP ventilation as needed, hypertension, hyperlipidemia, type 2 diabetes mellitus, CKD with baseline creatinine of 1. As per the patient and spouse at bedside patient had influenza A around 12 days ago for which she required Tamiflu. After that his cough continue to be bothering for him hence he was placed on doxycycline 5-day course which ended yesterday. 2 days ago patient started complaining of right-sided chest pain getting worse with taking a deep breath and cough hence he present to the ER today. Patient had been on steroids till 4 days ago. He denies any nausea, vomiting, diarrhea. Denies any changes in his medications recently. Denies any increase oxygen requirements recently. Patient was admitted to the hospital further evaluation and management of acute on chronic hypoxic respiratory failure in setting of pulmonary embolism, baseline ALS and obstructive sleep apnea. He was started on anticoagulation with heparin drip. CTA was done which showed bilateral PE. Echocardiogram was done which ruled out right heart strain. Lower limb Dopplers also confirmed bilateral DVTs. Cardiology was consulted who recommended against placing IVC filter placement for now. Patient worked well with physical therapy. He has been discharged in medically stable condition with outpatient physical therapy, full dose anticoagulation with Eliquis 10 mg twice daily for next 1 week followed by 5 mg twice daily. He is to follow-up with his primary care provider within next 1 week for further management. He is also been discharged on Augmentin and Levaquin for next 3 days. Physical Exam Narrative: General: No acute distress, AO x3, chronically sick appearing, HEENT: PERRLA, pupils bilaterally equal and reactive Chest: Bilateral bronchial breath sounds, occasional rhonchi, coarse crackles present in right lower zone CVS: S1-S2 regular, no murmurs, no tachycardia, no gallops, no rubs Abdomen: Soft, nontender, no organomegaly, bowel sounds present Neuro: No focal deficits, no facial deformity, Urinary Catheter Management: Dumont: Cath Placed During This Visit: yes Reason for Continuing Indwelling Catheter: Acute Urinary Retention or Obstruction Urinary Catheter Date of Insertion: 06/22/24 Urinary Catheter Time of Insertion: 18:19 Discharge Data Studies Completed and Pending Completed Studies During Hospitalization Category Date Time Status CT chest wo con [id number] Stat Cat Scan 06/22/24 13:35 Completed CTA chest [CT angio chest PE protcl [id number]] Stat Cat Scan 06/22/24 16:41 Completed XR chest 1V portable [id number] Stat Exams 06/22/24 12:50 [place] [id number] Routine Ultrasound 06/22/24 17:31 Completed CV. echo complete* [id number] Routine Ultrasound 06/23/24 22:16 Completed Pending at discharge Category Date Time Status Modified barium swallow [FL barium swallow modifd [id number] Exams 06/23/24 12:18 Ordered ] Routine Blood Culture Stat Lab 06/22/24 13:21 Results Complete Blood Count w/Auto AM LABS Lab 06/25/24 04:00 Ordered Comprehensive Metabolic Panel AM LABS Lab 06/25/24 04:00 Ordered Factor 5 Leiden Mutation Routine Lab 06/23/24 18:52 Received Magnesium AM LABS Lab 06/25/24 04:00 Ordered PTT [Partial Thromboplastin Time] Timed Lab 06/24/24 12:30 Ordered Phosphorus AM LABS Lab 06/25/24 04:00 Ordered Platelet Count Q2D Lab 06/25/24 04:00 Ordered Platelet Count Q2D Lab 06/27/24 04:00 Ordered Sputum Culture and Gram Stain Stat Lab 06/22/24 16:51 Uncollected Radiology Impressions Chest X-Ray 06/22/24 12:50 IMPRESSION: Low lung volumes with crowded central interstitial markings and questionable bilateral perihilar consolidation. Findings may be nonpathologic, reflecting perihilar atelectasis due to low lung volumes. Infection is not excluded. Consider follow-up PA and lateral chest radiographs. Chest CT 06/22/24 13:35 IMPRESSION: 1. Low lung volumes due to poor inspiration. 2. Bibasilar consolidations consistent with atelectasis. 3. No infiltrates in the hilar regions. 4. No pleural effusion. Chest CTA 06/22/24 16:41 IMPRESSION: 1. Extensive pulmonary emboli in the segmental pulmonary artery supplying the right lower lobe and left lower and left upper lobe. 2. There is evidence of right heart strain with an RV to LV ratio of 1.1. 3. Opacities in the posterior aspect of the lung bases present pulmonary infarct. ADDENDUM: 06/22/242151 THIS REPORT CONTAINS FINDINGS THAT MAY BE CRITICAL TO PATIENT CARE. The findings were verbally communicated via telephone conference with at 9:51 PM PORCELAIN MIXER on 06/22/2024. The findings were acknowledged and understood. Venous Duplex 06/22/24 17:31 IMPRESSION: 1. Partial occlusive thrombus in the right superficial femoral vein, right popliteal vein and right posterior tibial vein. 2. Partial occlusive thrombus in the left common femoral vein and left greater saphenous vein. Echocardiogram: CONCLUSIONS LV systolic function is normal with EF of 55-60% Mild mitral regurgitation Mild tricuspid regurgitation Compared to prior echocardiogram from 2022, no significant changes are seen Kevin Nolan MD (Electronically Signed) Final Date: 23 June 2024 Laboratory Results WBC 12.79 10^3/uL (3.29-11.43) H 06/24/24 06:44 RBC 5.15 10^6/uL (3.85-5.65) 06/24/24 06:44 Hgb 15.30 g/dL (11.27-16.99) 06/24/24 06:44 Hct 46.1 % (37-53) 06/24/24 06:44 MCV 89.5 fl (82-101) 06/24/24 06:44 MCH 29.7 pg (27-33) 06/24/24 06:44 MCHC 33.2 g/dL (30-55) 06/24/24 06:44 RDW 14.6 % (12.1-15.1) 06/24/24 06:44 Plt Count 249 10^3/cmm (157-399) 06/24/24 06:44 MPV 10.3 fL (7.4-10.4) 06/24/24 06:44 Neut % (Auto) 81.1 % 06/24/24 06:44 Lymph % (Auto) 12.4 % 06/24/24 06:44 [place] % (Auto) 4.5 % 06/24/24 06:44 Eos % (Auto) 0.3 % 06/24/24 06:44 Baso % (Auto) 0.9 % 06/24/24 06:44 Neut # (Auto) 10.38 10^3/uL (1.8-7.7) H 06/24/24 06:44 Lymph # (Auto) 1.6 10^3/uL (0.8-4.8) 06/24/24 06:44 [place] # (Auto) 0.6 10^3/uL (0.2-0.9) 06/24/24 06:44 Eos # (Auto) 0.0 10^3/uL (0.0-0.8) 06/24/24 06:44 Baso # (Auto) 0.1 10^3/uL (0.0-0.1) 06/24/24 06:44 Nucleated RBC % (auto) 0 % 06/24/24 06:44 Nucleated RBCs # 0.0 /100WBC 06/24/24 06:44 APTT 73.7 SECONDS (23.9-36.7) H 06/24/24 06:44 D-Dimer 5.56 ug/mLFEU (0-0.59) H 06/22/24 15:08 Specimen Type Arterial 06/22/24 13:18 Sample Site Radial, left 06/22/24 13:18 ABG pH 7.46 (7.35-7.45) H 06/22/24 13:18 ABG pCO2 32.3 mmHg (35-45) L 06/22/24 13:18 ABG pO2 59.7 mmHg (80.0-100.0) L 06/22/24 13:18 ABG PO2/FiO2 Ratio 284 06/22/24 13:18 ABG HCO3 22.7 mmol/L (22-26) 06/22/24 13:18 ABG O2 Saturation 93.6 06/22/24 13:18 ABG Base Excess -0.2 mmol/L (-2.0-2.0) 06/22/24 13:18 Carter Test Pos 06/22/24 13:18 A-a O2 Gradient 6.6 mmHg (5-10) 06/22/24 13:18 Hematocrit 54.1 % (42-52) H 06/22/24 13:18 Hgb O2 Saturation 92.1 % (95-100) L 06/22/24 13:18 Carboxyhemoglobin 1.4 %THgb (0.4-20.1) 06/22/24 13:18 Methemoglobin 0.2 % (0.4-1.5) L 06/22/24 13:18 Total Hemoglobin 17.7 g/dL (14-18) 06/22/24 13:18 Sodium 137.0 mmol/L (131-143) 06/22/24 13:18 Potassium 4.0 mmol/L (3.5-5.0) 06/22/24 13:18 Glucose 143.0 mg/dL (70-115) H 06/22/24 13:18 Ionized Calcium 1.3 mmol/L (1.1-1.4) 06/22/24 13:18 O2 Delivery Device Vent 06/22/24 13:18 FiO2 21.0 % 06/22/24 13:18 PEEP 5.0 cmH20 06/22/24 13:18 Bacon Stringer ID [place] 06/22/24 13:18 Sodium 140 mmol/L (136-145) 06/24/24 06:44 Potassium 3.8 mmol/L (3.5-5.1) 06/24/24 06:44 Chloride 109 mmol/L (98-107) H 06/24/24 06:44 Carbon Dioxide 20 mmol/L (22-29) L 06/24/24 06:44 Anion Gap 14.8 (5-19) 06/24/24 06:44 BUN 14 mg/dL (8-23) 06/24/24 06:44 Creatinine 0.9 mg/dL (0.7-1.2) 06/24/24 06:44 GFR Calculation 85.8 mL/min (90-130) L 06/24/24 06:44 Glucose 141 mg/dL (65-115) H 06/24/24 06:44 POC Glucose 141 mg/dL (70-110) H 06/24/24 06:11 Estimat Average Glucose 126 06/22/24 13:15 Hemoglobin A1c 6.0 % (4.0-6.0) 06/22/24 13:15 Calculated Osmolality 293 mOsm/kg (285-295) 06/24/24 06:44 Lactic Acid 1.0 mmol/L (0.5-2.2) 06/22/24 19:20 Calcium 9.2 mg/dL (8.5-10.5) 06/24/24 06:44 Phosphorus 3.2 mg/dL (2.5-4.5) 06/24/24 06:44 Magnesium 2.1 mg/dL (1.7-2.3) 06/24/24 06:44 Iron 27 ug/dL (59-158) L 06/22/24 15:08 TIBC 224 mcg/dl 06/22/24 15:08 % Saturation 12.0 % (20-50) L 06/22/24 15:08 Unsat Iron Binding 197 ug/dL (112-347) 06/22/24 15:08 Total Bilirubin 0.3 mg/dL (0.15-1.2) 06/24/24 06:44 AST 19 U/L (0-40) 06/24/24 06:44 ALT 41 U/L (0-41) 06/24/24 06:44 Alkaline Phosphatase 88 U/L (40-130) 06/24/24 06:44 Troponin T Baseline 8 ng/L (0-15) 06/22/24 13:15 Troponin T 120 Minute 8.43 ng/L (0-15) 06/22/24 15:08 Delta Troponin T 0.43 ABS# (0-10) 06/22/24 15:08 Troponin T Hi Sens 6Hr 10.38 ng/L (0-15) 06/22/24 19:20 Troponin T Hi Sens 6Hr Delta 2.38 ng/L (0-12) 06/22/24 19:20 C-Reactive Protein 182.6 mg/L (0.0-4.9) H 06/22/24 13:15 NT-Pro-B Natriuret Pep < 36 pg/mL (0-125) 06/22/24 13:15 Total Protein 6.9 g/dL (6.6-8.7) 06/24/24 06:44 Albumin 3.3 g/dL (3.5-5.2) L 06/24/24 06:44 Globulin 3.6 g/dL (1.3-4.6) 06/24/24 06:44 Triglycerides 77 mg/dL (0-150) 06/23/24 05:20 Cholesterol 111 mg/dL (0-200) 06/23/24 05:20 LDL Cholesterol, Calc 56 mg/dL (50-129) 06/23/24 05:20 HDL Cholesterol 40 mg/dL (60-100) L 06/23/24 05:20 LDL/HDL Ratio 1.40 RATIO (0.00-3.22) 06/23/24 05:20 Cholesterol/HDL Ratio 2.78 mg/dL (1.0-5.00) 06/23/24 05:20 Vitamin B12 1675 pg/mL (232-1245) H 06/22/24 15:08 Folate 19.7 ng/mL (4.5-32.2) 06/23/24 05:20 Procalcitonin 0.08 ng/mL (0-0.5) 06/23/24 05:20 TSH 1.71 uIU/mL (0.27-4.20) 06/22/24 15:08 Urine Color Yellow (Yellow) 06/22/24 18:02 Urine Appearance Clear (CLEAR) 06/22/24 18:02 Urine pH 5.0 (5-7) 06/22/24 18:02 Ur Specific [place] 1.033 (1.005-1.030) H 06/22/24 18:02 Urine Protein 2+ (Negative) A 06/22/24 18:02 Urine Glucose (UA) 1+ (Normal) H 06/22/24 18:02 Urine Ketones Negative (Negative) 06/22/24 18:02 Urine Blood Negative (Negative) 06/22/24 18:02 Urine Nitrate Negative (Negative) 06/22/24 18:02 Urine Bilirubin Negative (Negative) 06/22/24 18:02 Urine Urobilinogen 0.2 mg/dL (Negative) 06/22/24 18:02 Ur Leukocyte Esterase Negative (Negative) 06/22/24 18:02 Urine RBC 0-2 /hpf (0-2) 06/22/24 18:02 Urine WBC 0-5 /hpf (0-5) 06/22/24 18:02 Ur Squamous Epith Cells 0-5 /hpf (0-5) 06/22/24 18:02 Amorphous Sediment Not Reportable 06/22/24 18:02 Urine Bacteria None seen /hpf (NONE) 06/22/24 18:02 Hyaline Casts 2.05 /lpf 06/22/24 18:02 Nasal MRSA (PCR) Not detected (Negative) 06/22/24 18:30 Coronavirus (PCR) Negative (Negative) 06/22/24 13:23 Influenza A (PCR) Negative (Negative) 06/22/24 13:23 Influenza Type B (PCR) Negative (Negative) 06/22/24 13:23 RSV (PCR) Negative (Negative) 06/22/24 13:23 Vitals Last Vital Signs Temp 98.5 F 06/24/24 03:55 Pulse 65 06/24/24 08:00 Resp 22 H 06/24/24 08:00 BP 129/80 06/24/24 07:35 Pulse Ox 95 06/24/24 08:00 O2 Del Method Room Air 06/24/24 08:00 O2 Flow Rate 21 06/23/24 02:50 Discharge Plan Discharge Patient Disposition: Home Condition: Stable Prescriptions: New amoxicillin-pot clavulanate 875-125 mg tablet 1 tab PO BID Qty: 6 0RF Eliquis DVT-PE Treat 30D Start 5 mg (74 tabs) tablets,dose pack See Rx Instructions .ROUTE .COMPLEX Qty: 74 0RF Rx Instructions: orally per package directions levofloxacin 750 mg tablet 750 mg PO Q24H 3 Days Qty: 3 0RF Continued cholecalciferol (vitamin D3) 25 mcg (1,000 unit) capsule 25 mcg PO DAILY primidone 50 mg tablet 50 mg PO .HS ascorbic acid (vitamin C) 1,000 mg tablet 2 g PO DAILY aspirin [Adult Aspirin Regimen] 81 mg tablet,delayed release (DR/EC) 162 mg PO DAILY (DME) CPAP See Rx Instructions .ROUTE .MEDSUPPLY Qty: 1 0RF Rx Instructions: As directed clonazepam 0.5 mg tablet 0.5 mg PO .HS fluoxetine [Prozac] 40 mg capsule 40 mg PO BID 21 Days Qty: 42 7RF (DME) DME: Walker Unit See Rx Instructions .ROUTE .MEDSUPPLY Qty: 1 0RF Rx Instructions: Code E0143 and E0156 walker 4 wheels and seat (DME) Shower chair See Rx Instructions .Route .MEDSUPPLY Qty: 1 0RF Rx Instructions: As directed allopurinol 300 mg tablet 300 mg PO BID 21 Days Qty: 42 7RF rosuvastatin [Crestor] 10 mg tablet 10 mg PO DAILY Qty: 21 7RF Farxiga 10 mg tablet 10 mg PO QAM Qty: 21 7RF amlodipine 10 mg tablet 10 mg PO DAILY Qty: 90 3RF tamsulosin 0.4 mg capsule 0.4 mg PO QPM Rx Instructions: TAKE 1 CAPSULE BY MOUTH AT BEDTIME isosorbide mononitrate 30 mg tablet extended release 24 hr 30 mg PO DAILY tramadol 50 mg tablet 50 mg PO PRN PRN (Reason: Pain) albuterol sulfate 90 mcg/actuation HFA aerosol inhaler 2 puff INHALATION Q6H baclofen 10 mg tablet 10 mg PO BID Discharge Orders: Discharge Order (Routine); Ordered 06/24/24 Ordered By: Michael Stokes Other Ambulatory Orders: Occupational Therapy Eval and Treat Outpatient (Order) Timeframe: 3 Days Facility: [facility] - Location: Occupational Therapy [place] Ordered By: Michael Stokes Physical Therapy Eval and Treat Outpatient (Order) Timeframe: 3 Days Facility: [facility] - Location: Physical Therapy [place] Ordered By: Michael Stokes Referrals: Charlene Posada FNP [Nurse Practitioner] - 06/30/24 8:30 am Maya Redmond [Referring] - 06/29/24 10:40 am Discharge Diet: Regular and Cardiac Discharge Activity: Resume usual activity and Increase activity as tolerated Patient Instructions: Amoxicillin/Clavulanate Potassium (By mouth) (Augmentin, Augmentin..., Levofloxacin (By mouth) (Levaquin, Levaquin Leva-magui), Apixaban (By mouth) (Eliquis), Pulmonary Embolism (DC), Deep Vein Thrombosis (DC), Bacterial Pneumonia (DC), Opioid Safety, Pneumonia Stoplight Activity Restrictions/Additional Instructions: Take Eliquis 10 mg twice daily for next 1 week followed by 5 mg twice daily. Augmentin and Levaquin are the antibiotics which you should take for next few days. Please follow-up with physical therapy team as an outpatient. Discharge Attestations Time Spent in Discharge Care*: greater than 30 min Specific Discharge Activities: educating patient, educating and/or supporting family/caregiver, discussing with pcp/other providers, discussing with case loader operator/social workers/dc planners, documenting/other paperwork and evaluating patient/reviewing data Status at Discharge: Cognitive status at discharge: cognitively intact, Behavioral status at discharge: cooperative, Functional status at discharge: uses cane/walker, Overall status at discharge: patient is back to baseline Quality Metrics Clinical Quality Measures [ No reported AMI, CVA or VTE this stay] Coding Level of Care Code 32960 Total time (in minutes) for Discharge: 60 Diagnoses Elevated d-dimer R79.89 Bilateral pulmonary embolism I26.99 DVT, bilateral lower limbs I82.403 SOB (shortness of breath) on exertion R06.02 Essential hypertension I10 Mixed hyperlipidemia E78.2
[2024-06-24 11:12] VITALS: BP 125/81; PULSE 65; RESP 18; TEMP 36.5; O2SAT 94
--- NOTE | 2024-06-24 11:58 | PC.OT ---
OT TREATMENT ATTEMPTED; DAUGHTER STATES THAT THE PATIENT IS BEING D/C TODAY. THEY HAVE NO FURTHER QUESTIONS ABOUT ADLs EXCEPT THE SIT TO STAND DEVICE. P.T. IS TO TRAIN FAMILY IN USE TODAY.
[2024-06-24 12:04] VITALS: BP 125/81; PULSE 18; RESP 65; TEMP 36.5; O2SAT 94
[2024-06-24 12:41] LABS: Partial Thromboplastin Time 17.2 SECONDS (23.9-36.7)
== END 2024-06-24 14:35 | disposition home or self-care (01) | DRG 299 ==
LOC: ER 15:11 → MEDSURG 15:59
PROVIDERS: Nurse Practitioner Family; Admitting Provider Student in an Organized Health Care Education/Training Program; Emergency Provider Emergency Medicine; Visit Provider Student in an Organized Health Care Education/Training Program
DX: I82.413 Acute embolism and thrombosis of femoral vein, bilateral (principal); I26.99 Other pulmonary embolism without acute cor pulmonale; J96.21 Acute and chronic respiratory failure with hypoxia; J15.9 Unspecified bacterial pneumonia; G12.21 Amyotrophic lateral sclerosis; Z68.41 Body mass index [BMI] 40.0-44.9, adult; I82.431 Acute embolism and thrombosis of right popliteal vein; I82.441 Acute embolism and thrombosis of right tibial vein; I82.4Y2 Acute embolism and thrombosis of unspecified deep veins of left proximal lower extremity; E78.2 Mixed hyperlipidemia; E11.22 Type 2 diabetes mellitus with diabetic chronic kidney disease; N18.2 Chronic kidney disease, stage 2 (mild); I12.9 Hypertensive chronic kidney disease with stage 1 through stage 4 chronic kidney disease, or unspecified chronic kidney disease; G47.33 Obstructive sleep apnea (adult) (pediatric); Z79.82 Long term (current) use of aspirin; N52.9 Male erectile dysfunction, unspecified; N40.1 Benign prostatic hyperplasia with lower urinary tract symptoms; Z86.73 Personal history of transient ischemic attack (TIA), and cerebral infarction without residual deficits; G20.A1 Parkinson's disease without dyskinesia, without mention of fluctuations; Z87.442 Personal history of urinary calculi; G25.81 Restless legs syndrome; F41.9 Anxiety disorder, unspecified; F32.A Depression, unspecified; K58.9 Irritable bowel syndrome, unspecified; E66.9 Obesity, unspecified; Z99.3 Dependence on wheelchair; Z74.01 Bed confinement status; M10.9 Gout, unspecified
CPT/HCPCS: 36415; 36416; 36600; 51702; 71045; 71250; 71275; 80051; 80053; 80061; 81003; 81241; 82330; 82607; 82746; 82805; 82962; 83036; 83540; 83550; 83605; 83735; 83880; 84100; 84145; 84443; 84484; 85025; 85378; 85730; 86140; 87040; 87637; 92523; 92610; 93005; 93306; 93970; 94640; 94664; 96365; 96372; 97110; 97116; 97162; 97167; 97530; 99285; J1644; J1650; J1720; J1956; J2470; J2543; J3370; J7030; J7626; Q0144

== ENCOUNTER 2024-07-12 13:14 | Emergency (ER) | payer OTHER, SELFPAY ==
[2024-07-12 13:19] VITALS: BP 111/76; PULSE 78; RESP 18; TEMP 36.4; O2SAT 94
--- NOTE | 2024-07-12 14:06 | CTR_ITS ---
PROCEDURE INFORMATION: Exam: CT Lumbar Spine Without Contrast Exam date and time: 07/12/2024 3:02 PM Age: 63 years old Clinical indication: Low back pain TECHNIQUE: Imaging protocol: Computed tomography of the lumbar spine without contrast. Radiation optimization: All CT scans at this facility use at least one of these dose optimization techniques: automated exposure control; mA and/or kV adjustment per patient size (includes targeted exams where dose is matched to clinical indication); or iterative reconstruction. COMPARISON: CT kidney stone [id number] 12/14/2018 9:43 PM RADIATION DOSE METRICS: Total DLP (mGy-cm): 1024.78 FINDINGS: Bones/joints: No acute fracture. Normal alignment. No significant disc bulge or herniation. No severe spinal canal stenosis. No significant neural foraminal narrowing. Soft tissues: Unremarkable. CT/CT lumbar spine wo con* [id number] IMPRESSION: No acute findings.
--- NOTE | 2024-07-12 14:07 | W.ED.BACK ---
HPI - Back Pain/Injury General: Chief Complaint: Back Pain/Injury Stated Complaint: lower back pain Time Seen by Provider: 07/12/24 13:36 Source: patient and family (daughter) Mode of arrival: wheelchair Limitations: no limitations History of Present Illness: Patient is a nice 63-year-old male with a history of ALS, pulmonary emboli, DVT, hypertension, hyperlipidemia, among other things here with daughter for complaints of back pain. No known injury or trauma. Patient has a Dumont catheter placed for neurogenic bladder. He is not complaining of any worsening ALS like symptoms. No fevers. Daughter is concerned that his back pain could be related to his kidneys. He has not noticed any blood or clots in his Dumont bag. Daughter states he takes tramadol for chronic pain and this is not helping with his back. MD elicited complaint: back pain Onset (ago): day(s) Timing: constant Severity: moderate Location: lumbar spine Radiation: none Exacerbating factors: movement Relieving factors: none Associated symptoms: Deny abdominal pain, chills, fatigue or fever(s) Related Data Home Medications ?Medication ?Instructions ?Recorded ?Confirmed cholecalciferol (vitamin D3) 25 25 mcg PO DAILY 01/01/21 07/05/24 mcg (1,000 unit) capsule ascorbic acid (vitamin C) 1,000 mg 2 g PO DAILY 03/20/21 07/05/24 tablet primidone 50 mg tablet 50 mg PO .HS 03/20/21 07/05/24 aspirin 81 mg tablet,delayed 162 mg PO DAILY 08/12/22 07/05/24 release (Adult Aspirin Regimen) clonazepam 0.5 mg tablet 0.5 mg PO .HS 08/12/22 07/05/24 albuterol sulfate 90 mcg/actuation 2 puff inhalation Q6H 06/22/24 07/05/24 aerosol inhaler baclofen 10 mg tablet 10 mg PO BID 06/22/24 07/05/24 isosorbide mononitrate 30 mg 30 mg PO DAILY 06/22/24 07/05/24 tablet,extended release 24 hr tamsulosin 0.4 mg capsule 0.4 mg PO QPM 06/22/24 07/05/24 tramadol 50 mg tablet 50 mg PO PRN PRN Pain 06/22/24 07/05/24 Held on 07/12/24. Instructions: while taking hydrocodone Previous Rx's ?Medication ?Instructions ?Recorded CPAP #1 ea 08/07/21 DME: Walker #1 ea 04/18/22 Shower chair #1 ea 04/18/22 fluoxetine 40 mg capsule (Prozac) 40 mg PO BID 21 days #42 caps 04/18/22 dapagliflozin propanediol 10 mg 10 mg PO QAM #21 tabs 04/24/22 tablet (Farxiga) allopurinol 300 mg tablet 300 mg PO BID 21 days #42 tabs 07/22/22 rosuvastatin 10 mg tablet (Crestor) 10 mg PO DAILY #21 tabs 07/22/22 amlodipine 10 mg tablet 10 mg PO DAILY #90 tabs 08/12/22 amoxicillin 875 mg-potassium 1 tab PO BID #6 tabs 06/24/24 clavulanate 125 mg tablet apixaban 5 mg (74 tabs) tablets in See Rx Instructions PO .COMPLEX 06/24/24 a dose pack (Eliquis DVT-PE Treat #74 ea 30D Start) hydrocodone 5 mg-acetaminophen 325 1 tab PO Q6H PRN pain #14 tabs 07/12/24 mg tablet methylprednisolone 4 mg tablets in See Rx Instructions PO .COMPLEX 07/12/24 a dose pack (Medrol (Damir)) #21 ea Allergies Allergy/AdvReac Type Severity Reaction Status Date / Time naproxen Allergy ALGY-Swell Verified 07/12/24 13:26 Lip/Tongue/Throat semaglutide (From Ozempic) AdvReac Intermediate stomach Verified 07/12/24 13:26 pain Review of Systems Const: Denies: fever(s), chills, body aches, fatigue or malaise Card: Denies: chest pain Resp: Denies: dyspnea GI: Denies: abdominal pain : Denies: flank pain Musc: Reports: back pain; Denies: neck pain Skin/Breast: Denies: rash Neuro: Reports: other (Chronic lower extremity weakness secondary to ALS) PFSH ED PFSH: Medical History ALS (amyotrophic lateral sclerosis) DVT (deep venous thrombosis) CKD (chronic kidney disease) stage 2, GFR 60-89 ml/min Erectile dysfunction Hematospermia KAVITHA on CPAP BPH loc w urin obs/LUTS Stroke Parkinson disease Essential hypertension History of kidney stones Mixed hyperlipidemia Restless leg syndrome Anxiety and depression Hesitancy Vitamin D deficiency IBS (irritable bowel syndrome) Gout Surgical History S/P skin and subcutaneous tissue surgery Squamous cell cancer S/P eye surgery Hx of colonoscopy (~2012) History of esophagogastroduodenoscopy (EGD) (~2012) Family History Father , age62 Diabetes Mother , AT AGE 72 Hypertension Lung disease COPD Social History Smoking and tobacco/nicotine status: never used tobacco/nicotine Second hand smoke exposure: No Alcohol intake: never Substance/Drug Use: unknown Adopted: No Caregiver/support person: No Lives independently: Yes Household members: spouse Housing: House Marital status: Number of children: 3 Current occupational status: disabled Current occupation: [employer] TEMPORARILY DISABLED Do you think of yourself as: Straight/Heterosexual Current gender identity: Male Physical Exam Const: COMMON NORMALS: no acute distress, patient oriented x3, no limitations, alert and well nourished GENERAL APPEARANCE: cooperative ORIENTATION/CONSCIOUSNESS: Yes awake, Yes oriented to person, Yes oriented to place and Yes oriented to time HENMT: COMMON NORMALS: normocephalic and atraumatic HEAD & SCALP: normal to inspection, normocephalic and atraumatic Neck/C-Spine: COMMON NORMALS: full ROM GENERAL: Yes normal visual inspection Resp: COMMON NORMALS: normal respiratory effort and clear to auscultation bilaterally AUSCULTATION: clear to auscultation bilaterally Cardio: COMMON NORMALS: regular rate and regular rhythm RATE: regular rate RHYTHM: regular rhythm GI: COMMON NORMALS: Normal to inspection, nondistended, normoactive bowel sounds present, Soft to palpation and non-tender PALPATION: Yes Soft to palpation : COMMON NORMALS: Yes no CVA tenderness BLADDER/KIDNEY EXAM: Yes no CVA tenderness Back/Pelvis: COMMON NORMALS: no CVA tenderness LUMBAR SPINE/LOWER BACK: Yes lumbar spinal tenderness and No paraspinal muscle spasm PELVIS: Yes buttocks normal and No sciatic notch tenderness SACRUM: no tenderness COCCYX: no tenderness Extremity: NARRATIVE EXTREMITY EXAM: LE vascularly intact; chronic weakness from ALS GENERAL: Yes normal exam except as noted Neuro: COMMON NORMALS: patient oriented x3 SENSORIUM/ORIENTATION: Yes alert, Yes oriented to person, Yes oriented to place and Yes oriented to time Skin: COMMON NORMALS: no rashes or lesions noted GENERAL SKIN EXAM: no rashes or lesions noted Course Vital Signs: Vital signs: Vital Signs Temperature 97.5 F L 07/12/24 13:19 Pulse Rate 66 07/12/24 16:44 Respiratory Rate 18 07/12/24 13:19 Blood Pressure 120/78 07/12/24 16:44 Pulse Oximetry 90 07/12/24 16:44 Oxygen Delivery Me thod Room Air 07/12/24 15:00 MDM - Back Pain/Injury Medical Decision Making Patient appears in no acute distress. His vital signs are stable. Blood work overall is nonactionable. UA not indicative of infection. CT of his lumbar spine is unremarkable. Patient was given IM medications here and feels much better. Recommend follow-up with primary care provider. Return to ED precautions discussed. Medical Records I reviewed the patient's medical records. Labs I reviewed the patient's lab results. 07/12/24 14:20 07/12/24 14:20 Radiology Impressions Lumbar Spine CT 07/12/24 14:06 IMPRESSION: No acute findings. Laboratory Results WBC 9.77 10^3/uL (3.29-11.43) 07/12/24 14:20 RBC 5.99 10^6/uL (3.85-5.65) H 07/12/24 14:20 Hgb 17.80 g/dL (11.27-16.99) H 07/12/24 14:20 Hct 53.3 % (37-53) H 07/12/24 14:20 MCV 89.0 fl (82-101) 07/12/24 14:20 MCH 29.7 pg (27-33) 07/12/24 14:20 MCHC 33.4 g/dL (30-55) 07/12/24 14:20 RDW 15.1 % (12.1-15.1) 07/12/24 14:20 Plt Count 267 10^3/cmm (157-399) 07/12/24 14:20 MPV 10.0 fL (7.4-10.4) 07/12/24 14:20 Neut % (Auto) 62.5 % 07/12/24 14:20 Lymph % (Auto) 25.0 % 07/12/24 14:20 [place] % (Auto) 7.7 % 07/12/24 14:20 Eos % (Auto) 3.4 % 07/12/24 14:20 Baso % (Auto) 0.9 % 07/12/24 14:20 Neut # (Auto) 6.11 10^3/uL (1.8-7.7) 07/12/24 14:20 Lymph # (Auto) 2.4 10^3/uL (0.8-4.8) 07/12/24 14:20 [place] # (Auto) 0.8 10^3/uL (0.2-0.9) 07/12/24 14:20 Eos # (Auto) 0.3 10^3/uL (0.0-0.8) 07/12/24 14:20 Baso # (Auto) 0.1 10^3/uL (0.0-0.1) 07/12/24 14:20 Nucleated RBC % (auto) 0 % 07/12/24 14:20 Nucleated RBCs # 0.0 /100WBC 07/12/24 14:20 Sodium 142 mmol/L (136-145) 07/12/24 14:20 Potassium 4.0 mmol/L (3.5-5.1) 07/12/24 14:20 Chloride 103 mmol/L (98-107) 07/12/24 14:20 Carbon Dioxide 27 mmol/L (22-29) 07/12/24 14:20 Anion Gap 16.0 (5-19) 07/12/24 14:20 BUN 14 mg/dL (8-23) 07/12/24 14:20 Creatinine 1.0 mg/dL (0.7-1.2) 07/12/24 14:20 GFR Calculation 76.0 mL/min (90-130) L 07/12/24 14:20 Glucose 113 mg/dL (65-115) 07/12/24 14:20 Calculated Osmolality 295 mOsm/kg (285-295) 07/12/24 14:20 Calcium 10.4 mg/dL (8.5-10.5) 07/12/24 14:20 Total Bilirubin 0.5 mg/dL (0.15-1.2) 07/12/24 14:20 AST 31 U/L (0-40) 07/12/24 14:20 ALT 47 U/L (0-41) H 07/12/24 14:20 Alkaline Phosphatase 145 U/L (40-130) H 07/12/24 14:20 Total Protein 8.4 g/dL (6.6-8.7) 07/12/24 14:20 Albumin 4.3 g/dL (3.5-5.2) 07/12/24 14:20 Globulin 4.1 g/dL (1.3-4.6) 07/12/24 14:20 Urine Color Yellow (Yellow) 07/12/24 14:50 Urine Appearance Clear (CLEAR) 07/12/24 14:50 Urine pH 5.5 (5-7) 07/12/24 14:50 Ur Specific [place] 1.036 (1.005-1.030) H 07/12/24 14:50 Urine Protein 2+ (Negative) A 07/12/24 14:50 Urine Glucose (UA) 3+ (Normal) H 07/12/24 14:50 Urine Ketones Negative (Negative) 07/12/24 14:50 Urine Blood 2+ (Negative) A 07/12/24 14:50 Urine Nitrate Negative (Negative) 07/12/24 14:50 Urine Bilirubin Negative (Negative) 07/12/24 14:50 Urine Urobilinogen 1.0 mg/dL (Negative) 07/12/24 14:50 Ur Leukocyte Esterase Negative (Negative) 07/12/24 14:50 Urine RBC 10-15 /hpf (0-2) H 07/12/24 14:50 Urine WBC 0-4 /hpf (0-5) H 07/12/24 14:50 Ur Squamous Epith Cells None /hpf (0-5) 07/12/24 14:50 Amorphous Sediment Not Reportable 07/12/24 14:50 Urine Bacteria None /hpf (NONE) 07/12/24 14:50 Urine Mucus None /hpf 07/12/24 14:50 All radiology interpretation(s) finalized by discharge Discharge Plan Discharge Patient Disposition: Home Clinical Impression: Low back pain Qualifiers: Chronicity: acute Back pain laterality: midline Sciatica presence: without sciatica Qualified Code(s): M54.50 - Low back pain, unspecified Condition: Stable Prescriptions: New hydrocodone-acetaminophen 5-325 mg tablet 1 tab PO Q6H PRN (Reason: pain) Qty: 14 0RF methylprednisolone [Medrol (Damir)] 4 mg tablets,dose pack See Rx Instructions .ROUTE .COMPLEX Qty: 21 0RF Rx Instructions: orally per package directions Held tramadol 50 mg tablet 50 mg PO PRN PRN (Reason: Pain) Hold Instructions: while taking hydrocodone No Action cholecalciferol (vitamin D3) 25 mcg (1,000 unit) capsule 25 mcg PO DAILY primidone 50 mg tablet 50 mg PO .HS ascorbic acid (vitamin C) 1,000 mg tablet 2 g PO DAILY aspirin [Adult Aspirin Regimen] 81 mg tablet,delayed release (DR/EC) 162 mg PO DAILY (DME) CPAP See Rx Instructions .ROUTE .MEDSUPPLY Qty: 1 0RF Rx Instructions: As directed clonazepam 0.5 mg tablet 0.5 mg PO .HS fluoxetine [Prozac] 40 mg capsule 40 mg PO BID 21 Days Qty: 42 7RF (DME) DME: Walker Unit See Rx Instructions .ROUTE .MEDSUPPLY Qty: 1 0RF Rx Instructions: Code E0143 and E0156 walker 4 wheels and seat (DME) Shower chair See Rx Instructions .Route .MEDSUPPLY Qty: 1 0RF Rx Instructions: As directed allopurinol 300 mg tablet 300 mg PO BID 21 Days Qty: 42 7RF rosuvastatin [Crestor] 10 mg tablet 10 mg PO DAILY Qty: 21 7RF Farxiga 10 mg tablet 10 mg PO QAM Qty: 21 7RF amlodipine 10 mg tablet 10 mg PO DAILY Qty: 90 3RF tamsulosin 0.4 mg capsule 0.4 mg PO QPM Rx Instructions: TAKE 1 CAPSULE BY MOUTH AT BEDTIME isosorbide mononitrate 30 mg tablet extended release 24 hr 30 mg PO DAILY albuterol sulfate 90 mcg/actuation HFA aerosol inhaler 2 puff INHALATION Q6H baclofen 10 mg tablet 10 mg PO BID amoxicillin-pot clavulanate 875-125 mg tablet 1 tab PO BID Qty: 6 0RF Eliquis DVT-PE Treat 30D Start 5 mg (74 tabs) tablets,dose pack See Rx Instructions .ROUTE .COMPLEX Qty: 74 0RF Rx Instructions: orally per package directions Discharge Orders: Discharge ED (Routine); Ordered 07/12/24 Ordered By: Key Jones Patient Instructions: Opioid Safety, Pain Management Activity Restrictions/Additional Instructions: As we discussed, his blood work here overall was unremarkable. CT of his back is normal. Will try stronger pain meds and steroids to help with his lower back discomfort. I would like him to follow-up with primary care later this week for reevaluation. You may return to the emergency department at anytime for any further concerns he may have. Print Language: Armenian Coding Level of Care Code ED Benzene Still Utility Operator for Jamaal Morales
[2024-07-12] MEDS: ondansetron 2 mg/ML SDV 2 mL 4 MG IVP (14:33)
[2024-07-12 14:34] LABS: Basophils # 0.1 10^3/uL (0.0-0.1); Basophils % 0.9 %; Eosinophils # 0.3 10^3/uL (0.0-0.8); Eosinophils % 3.4 %; Hematocrit 53.3 % (37-53); Lymphocytes # 2.4 10^3/uL (0.8-4.8); Mean Corpuscular HGB Conc 33.4 g/dL (30-55); Mean Corpuscular Hemoglobin 29.7 pg (27-33); Monocytes # 0.8 10^3/uL (0.2-0.9); Monocytes % 7.7 %; Neutrophils # 6.11 10^3/uL (1.8-7.7); Neutrophils % 62.5 %; Nucleated Red Blood Cells % 0 %; Platelet Count 267 10^3/cmm (157-399); Red Blood Count 5.99 10^6/uL (3.85-5.65); Red Cell Distribution Width 15.1 % (12.1-15.1); White Blood Count 9.77 10^3/uL (3.29-11.43)
[2024-07-12] MEDS: morphine 4 mg/mL SDV 1 mL IVP (14:37)
[2024-07-12] MEDS: dexamethasone 10 mg/mL INJ 8 MG IV (14:41)
[2024-07-12 14:54] LABS: Alanine Aminotransferase 47 U/L (0-41); Albumin Level 4.3 g/dL (3.5-5.2); Alkaline Phosphatase 145 U/L (40-130); Aspartate Amino Transferase 31 U/L (0-40); Blood Urea Nitrogen 14 mg/dL (8-23); Calcium 10.4 mg/dL (8.5-10.5); Carbon Dioxide 27 mmol/L (22-29); Chloride 103 mmol/L (98-107); Creatinine Clr Calc Pharmacy 92.5669; Globulin 4.1 g/dL (1.3-4.6); Glucose 113 mg/dL (65-115); Osmolality Calculated 295 mOsm/kg (285-295); Sodium 142 mmol/L (136-145); Total Bilirubin 0.5 mg/dL (0.15-1.2); Total Protein 8.4 g/dL (6.6-8.7)
[2024-07-12 15:00] VITALS: BP 120/78; PULSE 87; O2SAT 92
[2024-07-12 15:03] LABS: Bilirubin Urine Negative (Negative); Blood Urine 2+ (Negative); Glucose Urine UA 3+ (Normal); Ketones Urine Negative (Negative); Leukocyte Esterase Urine Negative (Negative); Nitrate Urine Negative (Negative); Protein Urine 2+ (Negative); Urine Appearance Clear (CLEAR); Urine Color Yellow (Yellow); pH Urine 5.5 (5-7)
[2024-07-12 15:21] LABS: Specific Gravity, Urine 1.036 (1.005-1.030)
[2024-07-12 15:22] LABS: UA Manual Slide Review YES; UA Slide Review UA Slide Review Perf
[2024-07-12 15:28] LABS: Add Urine Culture? No; Add Urine Microscopic? YES; WBC Urine 0-4 /hpf (0-5)
[2024-07-12 16:44] VITALS: BP 120/78; PULSE 66; O2SAT 90
== END 2024-07-12 16:40 | disposition home or self-care (01) ==
PROVIDERS: Emergency Provider Physician Assistant
DX: M54.50 Low back pain, unspecified (principal); Z79.82 Long term (current) use of aspirin; Z79.01 Long term (current) use of anticoagulants; Z85.828 Personal history of other malignant neoplasm of skin; I12.9 Hypertensive chronic kidney disease with stage 1 through stage 4 chronic kidney disease, or unspecified chronic kidney disease; N18.9 Chronic kidney disease, unspecified
CPT/HCPCS: 72131; 80053; 81001; 85025; 96374; 96375; 99285; J1100; J2270; J2405

== ENCOUNTER 2024-10-14 11:42 | Emergency (ER) | payer OTHER, SELFPAY ==
--- NOTE | 2024-10-14 11:54 | CTR_ITS ---
PROCEDURE INFORMATION: Exam: CT Head Without Contrast Exam date and time: 10/14/2024 12:25 PM Age: 63 years old Clinical indication: Visual disturbance; Additional info: Loss of vision (right and/or left not specified) TECHNIQUE: Imaging protocol: Computed tomography of the head without contrast. Radiation optimization: All CT scans at this facility use at least one of these dose optimization techniques: automated exposure control; mA and/or kV adjustment per patient size (includes targeted exams where dose is matched to clinical indication); or iterative reconstruction. COMPARISON: CT angio headneck 01/16/2021 RADIATION DOSE METRICS: Total DLP (mGy-cm): 1153.47 FINDINGS: Brain: There is subtle increased attenuation within the central marcy. It may represent progressive calcification/mineralization as a much smaller focus of increased attenuation was present in the central marcy in 2020. Subacute hemorrhage is not excluded with certainty. It is not associated with edema or mass effect. No other evidence of acute intracranial hemorrhage or mass effect is identified. There are no subdural collections. Cerebral ventricles: The ventricles are stable size and position compared to 2020 exam. Paranasal sinuses: Visualized portions of paranasal sinuses are well aerated. Mastoid air cells: Visualized portions of mastoid sinuses are not opacified. Bones: Unremarkable. No acute fracture. Soft tissues: No acute abnormality unless otherwise stated above. CT/CT head wo con* [id number] IMPRESSION: 1. Ill-defined increased attenuation within the central marcy without mass effect, possibly representing chronic and progressive mineralization/calcification. Subacute hemorrhage considered less likely, but not categorically excluded. Dual energy CT, if available, might improve characterization. An alternative consideration would be susceptibility weighted MR imaging to include magnitude and filtered phase images. 2. No other evidence of acute intracranial abnormality.
--- NOTE | 2024-10-14 11:55 | W.ED.GENADLT ---
HPI - General Adult General: Chief complaint: Extremity Problem,Nontraumatic Stated complaint: loss vision, brain bleed, left leg pain Time Seen by Provider: 10/14/24 11:54 History of Present Illness: 63-year-old male presents to the emergency room with complaints of left leg pain that began this morning. Patient reports that on he was seen and evaluated found to have a bleed inside of his brain and was advised to stop his blood thinners which she is on for DVT. He restarted them on 10/06. Patient has left leg pain as well no recent trauma, falls or injury. He chronically uses a walker to get around. Leg feels swollen except to the level of the groin. No injury directly to the leg either. Associated symptoms: Deny chest pain, dyspnea or rash Related Data Home Medications ?Medication ?Instructions ?Recorded ?Confirmed cholecalciferol (vitamin D3) 25 25 mcg PO DAILY 01/01/21 10/14/24 mcg (1,000 unit) capsule ascorbic acid (vitamin C) 1,000 mg 2 g PO DAILY 03/20/21 10/14/24 tablet primidone 50 mg tablet 50 mg PO BEDTIME 03/20/21 10/14/24 clonazepam 0.5 mg tablet 0.5 mg PO BID 08/12/22 10/14/24 albuterol sulfate 90 mcg/actuation 2 puff inhalation Q6H PRN 06/22/24 10/14/24 aerosol inhaler Shortness Of Breath baclofen 10 mg tablet 10 mg PO BID 06/22/24 10/14/24 isosorbide mononitrate 30 mg 30 mg PO DAILY 06/22/24 10/14/24 tablet,extended release 24 hr tamsulosin 0.4 mg capsule 0.4 mg PO QPM 06/22/24 10/14/24 tramadol 50 mg tablet 50 mg PO PRN PRN Pain 06/22/24 10/14/24 Held on 07/12/24. Instructions: while taking hydrocodone apixaban 5 mg tablet (Eliquis) 5 mg PO BID 10/14/24 10/14/24 Previous Rx's ?Medication ?Instructions ?Recorded CPAP #1 ea 08/07/21 DME: Walker #1 ea 04/18/22 Shower chair #1 ea 04/18/22 fluoxetine 40 mg capsule (Prozac) 40 mg PO BID 21 days #42 caps 04/18/22 dapagliflozin propanediol 10 mg 10 mg PO QAM #21 tabs 04/24/22 tablet (Farxiga) allopurinol 300 mg tablet 300 mg PO BID 21 days #42 tabs 07/22/22 rosuvastatin 10 mg tablet (Crestor) 10 mg PO DAILY #21 tabs 07/22/22 amlodipine 10 mg tablet 10 mg PO DAILY #90 tabs 08/12/22 methylprednisolone 4 mg tablets in See Rx Instructions PO .COMPLEX 10/14/24 a dose pack (Medrol (Damir)) #21 ea Allergies Allergy/AdvReac Type Severity Reaction Status Date / Time naproxen Allergy ALGY-Swell Verified 07/12/24 13:26 Lip/Tongue/Throat semaglutide (From Ozempic) AdvReac Intermediate stomach Verified 07/12/24 13:26 pain Review of Systems Const: Denies: fever(s) or chills Card: Denies: chest pain Resp: Denies: dyspnea GI: Denies: abdominal pain : Denies: dysuria, urinary frequency or urinary urgency Musc: Reports: extremity pain (Left leg); Denies: neck pain or back pain Skin/Breast: Denies: rash PFSH ED PFSH: Medical History ALS (amyotrophic lateral sclerosis) DVT (deep venous thrombosis) CKD (chronic kidney disease) stage 2, GFR 60-89 ml/min Erectile dysfunction Hematospermia KAVITHA on CPAP BPH loc w urin obs/LUTS Stroke Parkinson disease Essential hypertension History of kidney stones Mixed hyperlipidemia Restless leg syndrome Anxiety and depression Hesitancy Vitamin D deficiency IBS (irritable bowel syndrome) Gout Surgical History S/P skin and subcutaneous tissue surgery Squamous cell cancer S/P eye surgery Hx of colonoscopy (~2012) History of esophagogastroduodenoscopy (EGD) (~2012) Family History Father , age62 Diabetes Mother , AT AGE 72 Hypertension Lung disease COPD Social History Smoking and tobacco/nicotine status: never used tobacco/nicotine Second hand smoke exposure: No Alcohol intake: never Substance/Drug Use: unknown Adopted: No Caregiver/support person: No Lives independently: Yes Household members: spouse Housing: House Marital status: Number of children: 3 Current occupational status: disabled Current occupation: [employer] TEMPORARILY DISABLED Do you think of yourself as: Straight/Heterosexual Current gender identity: Male Physical Exam Const: GENERAL APPEARANCE: cooperative ORIENTATION/CONSCIOUSNESS: Yes awake, Yes oriented to person, Yes oriented to place and Yes oriented to time HENMT: COMMON NORMALS: normocephalic, atraumatic and hearing grossly normal bilaterally HEAD & SCALP: normocephalic and atraumatic Resp: COMMON NORMALS: normal respiratory effort, No retractions, No use of accessory muscles and clear to auscultation bilaterally AUSCULTATION: clear to auscultation bilaterally Cardio: COMMON NORMALS: regular rate, regular rhythm and No murmurs present (Cardio) RATE: regular rate RHYTHM: regular rhythm GI: COMMON NORMALS: Soft to palpation and No hepatosplenomegaly present AUSCULTATION: Yes normoactive bowel sounds PALPATION: Yes Soft to palpation, No Tenderness to palpation present (GI), No Guarding due to palpation present (GI) and Yes No hepatosplenomegaly present Extremity: COMMON NORMALS: normal to inspection, capillary refill normal, no clubbing, cyanosis or edema, no calf tenderness and no pedal edema Neuro: SENSORIUM/ORIENTATION: Yes oriented to person, Yes oriented to place and Yes oriented to time OTHER: Left-sided weakness with some dysarthria according to family members at his baseline no vision loss at this time Skin: COMMON NORMALS: no rashes or lesions noted GENERAL SKIN EXAM: no rashes or lesions noted Course Vital Signs: Vital signs: Vital Signs Temperature 97.7 F 10/14/24 12:02 Pulse Rate 56 L 10/14/24 14:05 Respiratory Rate 20 H 10/14/24 14:05 Blood Pressure 119/67 10/14/24 14:05 Pulse Oximetry 96 10/14/24 14:05 Oxygen Delivery Me thod Room Air 10/14/24 14:05 MDM - General Adult Medical Decision Making Leg pain improved with pain medications given. The concern of the bleed from earlier this month was reviewed as well. CT dated shows what looks more like a calcification we got the old CT from the other facility at radiology compare they feels the calcification is a chronic issue most likely not an acute bleed and certainly does not show any sign of worsening. His vision loss may be related to his ALS he does not have any symptoms at this time and there is nothing acute in his brain no other focal neurologic deficits. He has chronic left-sided weakness which is largely unchanged. Will go ahead and discharge him home. His leg pain is improved I believe this is musculoskeletal may be a nerve impingement we will treat him with steroid taper and have him follow-up with his primary care doctor Medical Records I reviewed the patient's medical records. Lab Data I reviewed the patient's lab results. 10/14/24 12:29 10/14/24 12:[address] 10/14/24 11:54 IMPRESSION: 1. Ill-defined increased attenuation within the central marcy without mass effect, possibly representing chronic and progressive mineralization/calcification. Subacute hemorrhage considered less likely, but not categorically excluded. Dual energy CT, if available, might improve characterization. An alternative consideration would be susceptibility weighted MR imaging to include magnitude and filtered phase images. 2. No other evidence of acute intracranial abnormality. ADDENDUM: 10/14/24 1510 ADDENDUM: The ordering clinician requested an addendum to the study. The original interpreting physician is not available. A noncontrast CT scan of the head dated 09/28/2024 is now available for comparison. The ill-defined area of increased density in the marcy is stable compared with 09/28/2024. The stability would favor an area of calcification over a subacute hemorrhage. Additional imaging evaluation as described in impression 1 of the original report may be obtained as clinically indicated. Laboratory Results WBC 8.30 10^3/uL (3.29-11.43) 10/14/24 12: RBC 5.91 10^6/uL (3.85-5.65) H 10/14/24 12: Hgb 17.40 g/dL (11.27-16.99) H 10/14/24 12: Hct 52.7 % (37-53) 10/14/24 12: MCV 89.2 fl (82-101) 10/14/24 12: MCH 29.4 pg (27-33) 10/14/24 12: MCHC 33.0 g/dL (30-55) 10/14/24 12: RDW 14.3 % (12.1-15.1) 10/14/24 12: Plt Count 246 10^3/cmm (157-399) 10/14/24 12: MPV 10.4 fL (7.4-10.4) 10/14/24 12: Neut % (Auto) 68.3 % 10/14/24 12: Lymph % (Auto) 20.8 % 10/14/24 12: [place] % (Auto) 7.1 % 10/14/24 12: Eos % (Auto) 2.3 % 10/14/24 12: Baso % (Auto) 1.1 % 10/14/24 12: Neut # (Auto) 5.67 10^3/uL (1.8-7.7) 10/14/24 12: Lymph # (Auto) 1.7 10^3/uL (0.8-4.8) 10/14/24 12: [place] # (Auto) 0.6 10^3/uL (0.2-0.9) 10/14/24 12: Eos # (Auto) 0.2 10^3/uL (0.0-0.8) 10/14/24 12: Baso # (Auto) 0.1 10^3/uL (0.0-0.1) 10/14/24 12: Nucleated RBC % (auto) 0 % 10/14/24 12: Nucleated RBCs # 0.0 /100WBC 10/14/24 12: Sodium 138 mmol/L (136-145) 10/14/24 12: Potassium 4.5 mmol/L (3.5-5.1) 10/14/24 12: Chloride 101 mmol/L (98-107) 10/14/24 12: Carbon Dioxide 23 mmol/L (22-29) 10/14/24 12: Anion Gap 18.5 (5-19) 10/14/24 12: BUN 11 mg/dL (8-23) 10/14/24 12: Creatinine 1.2 mg/dL (0.7-1.2) 10/14/24 12: GFR Calculation 61.6 mL/min (90-130) L 10/14/24 12: Glucose 131 mg/dL (65-115) H 10/14/24 12: Calculated Osmolality 287 mOsm/kg (285-295) 10/14/24 12: Calcium 10.0 mg/dL (8.5-10.5) 10/14/24 12: Total Bilirubin 0.4 mg/dL (0.15-1.2) 10/14/24 12: AST 29 U/L (0-40) 10/14/24 12: ALT 28 U/L (0-41) 10/14/24 12: Alkaline Phosphatase 127 U/L (40-130) 10/14/24 12: Total Protein 7.8 g/dL (6.6-8.7) 10/14/24 12: Albumin 4.4 g/dL (3.5-5.2) 10/14/24 12: Globulin 3.4 g/dL (1.3-4.6) 10/14/24 12:29 Urine Color Yellow (Yellow) 10/14/24 13:36 Urine Appearance Cloudy (CLEAR) A 10/14/24 13:36 Urine pH 5.5 (5-7) 10/14/24 13:36 Ur Specific [place] 1.028 (1.005-1.030) 10/14/24 13:36 Urine Protein 2+ (Negative) A 10/14/24 13:36 Urine Glucose (UA) 3+ (Normal) H 10/14/24 13:36 Urine Ketones Negative (Negative) 10/14/24 13:36 Urine Blood 1+ (Negative) A 10/14/24 13:36 Urine Nitrate Positive (Negative) A 10/14/24 13:36 Urine Bilirubin Negative (Negative) 10/14/24 13:36 Prot Sulfosalicylic Acd Cancelled 10/14/24 13:16 Urine Urobilinogen 0.2 mg/dL (Negative) 10/14/24 13:36 Ur Leukocyte Esterase 1+ (Negative) A 10/14/24 13:36 Urine RBC 6-10 /hpf (0-2) 10/14/24 13:36 Urine WBC 51-100 /hpf (0-5) H 10/14/24 13:36 Ur Squamous Epith Cells 0-5 /hpf (0-5) 10/14/24 13:36 Ur Transition Epith Cell Cancelled 10/14/24 13:16 Ur Renal Epithelial Cell Cancelled 10/14/24 13:16 Calcium Oxalate Crystal Cancelled 10/14/24 13:16 Uric Acid Crystals Cancelled 10/14/24 13:16 Triple Phos Crystals Cancelled 10/14/24 13:16 Other Crystals Cancelled 10/14/24 13:16 Amorphous Sediment Not Reportable 10/14/24 13:36 Urine Bacteria 4+ /hpf (NONE) H 10/14/24 13:36 Hyaline Casts 8.67 /lpf 10/14/24 13:36 Fine Granular Casts Cancelled 10/14/24 13:16 Coarse Granular Casts Cancelled 10/14/24 13:16 RBC Casts Cancelled 10/14/24 13:16 Other Casts Wbc cast /lpf 10/14/24 13:36 Urine Mucus Cancelled 10/14/24 13:16 Urine Trichomonas Cancelled 10/14/24 13:16 Urine Yeast Cancelled 10/14/24 13:16 Urine Sperm Cancelled 10/14/24 13:16 Ur Oval Fat Bodies Cancelled 10/14/24 13:16 All radiology interpretation(s) finalized by discharge Discharge Plan Discharge Patient Disposition: Home Clinical Impression: Radicular pain of left lower extremity Condition: Stable Prescriptions: New methylprednisolone [Medrol (Damir)] 4 mg tablets,dose pack See Rx Instructions .ROUTE .COMPLEX Qty: 21 0RF Rx Instructions: orally per package directions No Action cholecalciferol (vitamin D3) 25 mcg (1,000 unit) capsule 25 mcg PO DAILY primidone 50 mg tablet 50 mg PO BEDTIME ascorbic acid (vitamin C) 1,000 mg tablet 2 g PO DAILY (DME) CPAP See Rx Instructions .ROUTE .MEDSUPPLY Qty: 1 0RF Rx Instructions: As directed clonazepam 0.5 mg tablet 0.5 mg PO BID fluoxetine [Prozac] 40 mg capsule 40 mg PO BID 21 Days Qty: 42 7RF (DME) DME: Walker Unit See Rx Instructions .ROUTE .MEDSUPPLY Qty: 1 0RF Rx Instructions: Code E0143 and E0156 walker 4 wheels and seat (DME) Shower chair See Rx Instructions .Route .MEDSUPPLY Qty: 1 0RF Rx Instructions: As directed allopurinol 300 mg tablet 300 mg PO BID 21 Days Qty: 42 7RF rosuvastatin [Crestor] 10 mg tablet 10 mg PO DAILY Qty: 21 7RF Farxiga 10 mg tablet 10 mg PO QAM Qty: 21 7RF amlodipine 10 mg tablet 10 mg PO DAILY Qty: 90 3RF tamsulosin 0.4 mg capsule 0.4 mg PO QPM isosorbide mononitrate 30 mg tablet extended release 24 hr 30 mg PO DAILY tramadol 50 mg tablet 50 mg PO PRN PRN (Reason: Pain) albuterol sulfate 90 mcg/actuation HFA aerosol inhaler 2 puff INHALATION Q6H PRN (Reason: Shortness Of Breath) baclofen 10 mg tablet 10 mg PO BID Eliquis 5 mg tablet 5 mg PO BID Discharge Orders: Discharge ED (Routine); Ordered 10/14/24 Ordered By: Dylan Clifton Discharge Diet: Usual diet Discharge Activity: Resume usual activity Patient Instructions: Opioid Safety, Pain Management Activity Restrictions/Additional Instructions: Thank you for choosing [facility] for your healthcare needs today. It is very important that you follow up as instructed or that you return to the Emergency Department should you have concerns or if your condition changes or worsens in any way. You were seen in the emergency room with leg pain. Leg pain improved with medications given suspect that is radicular in nature if it persist follow-up with your primary care doctor we gave you a course of steroids to help alleviate the discomfort for the next few days. The CT of your head done today did not show any acute bleeding. You should follow-up with your neurologist sometime within the next week. Print Language: [place] Coding Level of Care Code ED [employer] for Jamaal Morales
[2024-10-14 12:02] VITALS: BP 118/73; PULSE 61; RESP 16; TEMP 36.5; O2SAT 95; BMI 41.3
[2024-10-14 12:05] VITALS: BP 138/71; PULSE 63; RESP 20; O2SAT 96
--- NOTE | 2024-10-14 12:16 | USCV_ITS ---
Alec Parr Age: 63 Gender: M : 1960 Exam Date: 10/14/2024 13:15 Ordering Phys: Dylan Clifton DO Technologist: [place] [facility] [place]: lt leg pain and swelling PROCEDURES: Venous duplex imaging was performed in only the left lower extremity. The following venous structures were evaluated: common femoral vein, profunda vein, proximal portion of the greater saphenous vein, superficial femoral vein, and the popliteal vein. In addition, the posterior tibial and peroneal trunk were evaluated. FINDINGS: Normal 2-D Doppler and augmentation and compressibility throughout the lower extremity venous structures. Additional imaging through the proximal calf veins also reveals no thrombus. Limited evaluation of the greater saphenous vein is patent with no thrombus. CONCLUSIONS No evidence of left lower extremity DVT. Alec Lee MD (Electronically Signed) Final Date: 14 Oct 2024 14:02 S
[2024-10-14 12:40] LABS: Basophils # 0.1 10^3/uL (0.0-0.1); Basophils % 1.1 %; Eosinophils # 0.2 10^3/uL (0.0-0.8); Eosinophils % 2.3 %; Hematocrit 52.7 % (37-53); Lymphocytes # 1.7 10^3/uL (0.8-4.8); Lymphocytes % 20.8 %; Mean Corpuscular Hemoglobin 29.4 pg (27-33); Mean Corpuscular Volume 89.2 fl (82-101); Mean Platelet Volume 10.4 fL (7.4-10.4); Monocytes # 0.6 10^3/uL (0.2-0.9); Monocytes % 7.1 %; Neutrophils # 5.67 10^3/uL (1.8-7.7); Neutrophils % 68.3 %; Nucleated Red Blood Cells % 0 %; Platelet Count 246 10^3/cmm (157-399); Red Blood Count 5.91 10^6/uL (3.85-5.65); Red Cell Distribution Width 14.3 % (12.1-15.1)
[2024-10-14 12:58] LABS: Alanine Aminotransferase 28 U/L (0-41); Albumin Level 4.4 g/dL (3.5-5.2); Alkaline Phosphatase 127 U/L (40-130); Blood Urea Nitrogen 11 mg/dL (8-23); Carbon Dioxide 23 mmol/L (22-29); Chloride 101 mmol/L (98-107); Creatinine Clr Calc Pharmacy 77.4712; Globulin 3.4 g/dL (1.3-4.6); Glomerular Filtration Rate 61.6 mL/min (90-130); Glucose 131 mg/dL (65-115); Osmolality Calculated 287 mOsm/kg (285-295); Sodium 138 mmol/L (136-145); Total Bilirubin 0.4 mg/dL (0.15-1.2); Total Protein 7.8 g/dL (6.6-8.7)
[2024-10-14 12:59] LABS: Anion Gap 18.5 (5-19); Aspartate Amino Transferase 29 U/L (0-40); Potassium 4.5 mmol/L (3.5-5.1)
[2024-10-14 13:05] VITALS: BP 125/70; PULSE 53; RESP 18; O2SAT 96; O2SAT 98
[2024-10-14] MEDS: morphine 4 mg/mL SDV 1 mL IVP (13:05)
[2024-10-14] MEDS: orphenadrine 30 mg/mL Inj 2 mL 60 MG IM (13:06)
[2024-10-14] MEDS: dexamethasone 10 mg/mL INJ IM (13:06)
--- NOTE | 2024-10-14 13:12 | ECG_ITS ---
[facility] 2024[facility]14 Pat Name: Alec Parr Department: Room: Gender: Male Putty Glazer: : 1960 Requested By: Dylan Mckinney Order Number: [id number] Abbey MD: Kevin Nolan M.D. Measurements Intervals [place] Rate: 59 P: 43 MI: 152 QRS: -12 QRSD: 96 T: 46 QT: 438 QTc: 435 Interpretive Statements SINUS BRADYCARDIA INCOMPLETE RIGHT BUNDLE BRANCH BLOCK [90+ ms QRS DURATION, TERMINAL R IN V1/V2, 40+ ms S IN I/aVL/V4/V5/V6] Compared to ECG 06/22/2024 18:34:35 Incomplete right bundle-branch block now present Sinus rhythm no longer present T-wave abnormality no longer present Electronically Signed On 10-19-2024 11:50:35 CDT by Kevin Nolan M.D. [email or web address]
[2024-10-14 13:48] LABS: Bilirubin Urine Negative (Negative); Blood Urine 1+ (Negative); Glucose Urine UA 3+ (Normal); Ketones Urine Negative (Negative); Leukocyte Esterase Urine 1+ (Negative); Nitrate Urine Positive (Negative); Protein Urine 2+ (Negative); Specific Gravity, Urine 1.028 (1.005-1.030); Urine Appearance Cloudy (CLEAR); Urine Color Yellow (Yellow); Urobilinogen Urine 0.2 mg/dL (Negative); pH Urine 5.5 (5-7)
[2024-10-14 13:51] LABS: Add Urine Microscopic? YES; Bacteria Urine 4+ /hpf; Hyaline Casts Urine 8.67 /lpf; Squamous Epithelial Cell Urine 0-5 /hpf (0-5); WBC Urine 51-100 /hpf (0-5)
[2024-10-14 14:05] VITALS: BP 119/67; PULSE 56; RESP 20; O2SAT 96
[2024-10-14 14:14] LABS: UA Slide Review UA Slide Review Perf
[2024-10-14 14:16] LABS: Add Urine Culture? Yes; Other Casts Urine WBC CAST /lpf
[2024-10-14 15:26] VITALS: BP 114/67; PULSE 57; RESP 22; O2SAT 94
== END 2024-10-14 15:28 | disposition home or self-care (01) ==
PROVIDERS: Emergency Provider Family Medicine
DX: M54.10 Radiculopathy, site unspecified (principal); Z79.01 Long term (current) use of anticoagulants; E78.2 Mixed hyperlipidemia; I12.9 Hypertensive chronic kidney disease with stage 1 through stage 4 chronic kidney disease, or unspecified chronic kidney disease; N18.2 Chronic kidney disease, stage 2 (mild)
CPT/HCPCS: 70450; 80053; 81001; 85025; 87077; 87086; 87186; 93005; 93971; 96372; 96374; 99285; J1100; J2270; J2360

== ENCOUNTER 2024-10-28 17:08 | Emergency (ER) | payer OTHER, SELFPAY ==
[2024-10-28 17:22] VITALS: BP 146/85; PULSE 78; RESP 16; TEMP 36.6; O2SAT 95
[2024-10-28 19:28] VITALS: BP 156/88; O2SAT 95
--- NOTE | 2024-10-28 19:45 | W.ED.MALEGU ---
HPI - Male Genitourinary General: Chief complaint: Urogenital-Male Stated complaint: cath problems Time Seen by Provider: 10/28/24 19:10 Source: patient Mode of arrival: ambulatory Limitations: no limitations History of Present Illness: Patient is a very nice 63-year-old male who presents to ED today along with his son for complaints of an uncomfortable Walsh catheter as well as concerns for UTI. Walsh catheter was apparently placed a few months ago during a hospitalization. Son states it was placed due to patient having bilateral DVTs and it being difficult for him to ambulate due to the edema as well as his ALS. Previous documentation states Walsh was placed due to a neurogenic bladder. He has not had any follow-up with urology. He states catheter gets changed through his primary care provider office. Patient feels like he has noticed increased sediment in his tubing and has had chills and thinks he might have a UTI. He is not having any flank pain or fevers. Vital signs are stable upon arrival. MD Complaint: other (walsh, possible UTI) Context: indwelling catheter Associated symptoms: Deny vomiting Related Data Home Medications ?Medication ?Instructions ?Recorded ?Confirmed cholecalciferol (vitamin D3) 25 25 mcg PO DAILY 01/01/21 10/14/24 mcg (1,000 unit) capsule ascorbic acid (vitamin C) 1,000 mg 2 g PO DAILY 03/20/21 10/14/24 tablet primidone 50 mg tablet 50 mg PO BEDTIME 03/20/21 10/14/24 clonazepam 0.5 mg tablet 0.5 mg PO BID 08/12/22 10/14/24 albuterol sulfate 90 mcg/actuation 2 puff inhalation Q6H PRN 06/22/24 10/14/24 aerosol inhaler Shortness Of Breath baclofen 10 mg tablet 10 mg PO BID 06/22/24 10/14/24 isosorbide mononitrate 30 mg 30 mg PO DAILY 06/22/24 10/14/24 tablet,extended release 24 hr tamsulosin 0.4 mg capsule 0.4 mg PO QPM 06/22/24 10/14/24 tramadol 50 mg tablet 50 mg PO PRN PRN Pain 06/22/24 10/14/24 Held on 07/12/24. Instructions: while taking hydrocodone apixaban 5 mg tablet (Eliquis) 5 mg PO BID 10/14/24 10/14/24 nystatin 100,000 unit/gram topical 1 applic topical BID PRN Skin 10/14/24 10/14/24 powder (Klayesta) Irritation oxybutynin chloride 5 mg 5 mg PO DAILY 10/14/24 10/14/24 tablet,extended release 24 hr quetiapine 50 mg tablet 50 mg PO DAILY 10/14/24 10/14/24 Previous Rx's ?Medication ?Instructions ?Recorded CPAP #1 ea 08/07/21 DME: Walker #1 ea 04/18/22 Shower chair #1 ea 04/18/22 fluoxetine 40 mg capsule (Prozac) 40 mg PO BID 21 days #42 caps 04/18/22 dapagliflozin propanediol 10 mg 10 mg PO QAM #21 tabs 04/24/22 tablet (Farxiga) allopurinol 300 mg tablet 300 mg PO BID 21 days #42 tabs 07/22/22 rosuvastatin 10 mg tablet (Crestor) 10 mg PO DAILY #21 tabs 07/22/22 amlodipine 10 mg tablet 10 mg PO DAILY #90 tabs 08/12/22 methylprednisolone 4 mg tablets in See Rx Instructions PO .COMPLEX 10/14/24 a dose pack (Medrol (Damir)) #21 ea ciprofloxacin HCl 500 mg tablet 500 mg PO Q12H #14 tabs 10/28/24 (Cipro) Allergies Allergy/AdvReac Type Severity Reaction Status Date / Time naproxen Allergy ALGY-Swell Verified 07/12/24 13:26 Lip/Tongue/Throat semaglutide (From Ozempic) AdvReac Intermediate stomach Verified 07/12/24 13:26 pain Review of Systems Const: Denies: fever(s), chills, body aches, fatigue or malaise Card: Denies: chest pain Resp: Denies: dyspnea GI: Denies: abdominal pain, vomiting or change in bowel habits : Reports: other (reporting walsh is uncomfortable ); Denies: flank pain Musc: Denies: neck pain or back pain Neuro: Reports: difficulty walking (chronic; has ALS); Denies: headache(s) PFSH ED PFSH: Medical History ALS (amyotrophic lateral sclerosis) DVT (deep venous thrombosis) CKD (chronic kidney disease) stage 2, GFR 60-89 ml/min Erectile dysfunction Hematospermia KAVITHA on CPAP BPH loc w urin obs/LUTS Stroke Parkinson disease Essential hypertension History of kidney stones Mixed hyperlipidemia Restless leg syndrome Anxiety and depression Hesitancy Vitamin D deficiency IBS (irritable bowel syndrome) Gout Surgical History S/P skin and subcutaneous tissue surgery Squamous cell cancer S/P eye surgery Hx of colonoscopy (~2012) History of esophagogastroduodenoscopy (EGD) (~2012) Family History Father , age62 Diabetes Mother , AT AGE 72 Hypertension Lung disease COPD Social History Smoking and tobacco/nicotine status: never used tobacco/nicotine Second hand smoke exposure: No Alcohol intake: never Substance/Drug Use: unknown Adopted: No Caregiver/support person: No Lives independently: Yes Household members: spouse Housing: House Marital status: Number of children: 3 Current occupational status: disabled Current occupation: [employer] TEMPORARILY DISABLED Do you think of yourself as: Straight/Heterosexual Current gender identity: Male Physical Exam Const: COMMON NORMALS: no acute distress, no limitations, alert and well nourished GENERAL APPEARANCE: cooperative ORIENTATION/CONSCIOUSNESS: Yes awake, Yes oriented to person, Yes oriented to place and Yes oriented to time Resp: COMMON NORMALS: normal respiratory effort and clear to auscultation bilaterally AUSCULTATION: clear to auscultation bilaterally Cardio: COMMON NORMALS: regular rate and regular rhythm RATE: regular rate RHYTHM: regular rhythm GI: COMMON NORMALS: Normal to inspection, nondistended, normoactive bowel sounds present, Soft to palpation, non-tender, No hepatosplenomegaly present and no masses PALPATION: Yes Soft to palpation and Yes No hepatosplenomegaly present : COMMON NORMALS: Yes no CVA tenderness BLADDER/KIDNEY EXAM: Yes no CVA tenderness OTHER: walsh seems to be draining well-there is large amount of sediment and material caked in tubing; no obvious hematuria/clots visualized patient had complained of walsh discomfort; RN was able to reposition and slightly deflat balloon and patient feeling much improved Back/Pelvis: COMMON NORMALS: no CVA tenderness Neuro: SENSORIUM/ORIENTATION: Yes alert, Yes oriented to person, Yes oriented to place and Yes oriented to time Course Vital Signs: Vital signs: Vital Signs Temperature 97.8 F 10/28/24 17:22 Pulse Rate 78 10/28/24 17:22 Respiratory Rate 16 10/28/24 17:22 Blood Pressure 138/92 10/28/24 21:05 Pulse Oximetry 95 10/28/24 19:28 Oxygen Delivery Me thod Room Air 10/28/24 17:22 MDM - Male Medical Decision Making Patient appears in no acute distress. His vital signs are stable. Walsh catheter was repositioned and balloon was slightly deflated and patient feels significantly better. Blood work overall is nonactionable. His UA is consistent with infection with a cloudy appearance, 3+ blood, 2+ leukocyte esterase, and greater than 100 WBCs. Most recent urine culture (he was not placed on antibiotics at this visit) on 10/14 grew Klebsiella and Pseudomonas both sensitive to Ciprofloxacin so we will choose this. Will place referral to urology. Return ED precautions given. Medical Records I reviewed the patient's medical records. Lab Data I reviewed the patient's lab results. 10/28/24 20:05 10/28/24 20:05 Laboratory Results WBC 12.96 10^3/uL (3.29-11.43) H 10/28/24 20:05 RBC 6.24 10^6/uL (3.85-5.65) H 10/28/24 20:05 Hgb 18.60 g/dL (11.27-16.99) H 10/28/24 20:05 Hct 56.1 % (37-53) H 10/28/24 20:05 MCV 89.9 fl (82-101) 10/28/24 20:05 MCH 29.8 pg (27-33) 10/28/24 20:05 MCHC 33.2 g/dL (30-55) 10/28/24 20:05 RDW 14.7 % (12.1-15.1) 10/28/24 20:05 Plt Count 172 10^3/cmm (157-399) 10/28/24 20:05 MPV 10.0 fL (7.4-10.4) 10/28/24 20:05 Neut % (Auto) 68.7 % 10/28/24 20:05 Lymph % (Auto) 17.4 % 10/28/24 20:05 Maverick % (Auto) 8.3 % 10/28/24 20:05 Eos % (Auto) 4.2 % 10/28/24 20:05 Baso % (Auto) 0.8 % 10/28/24 20:05 Neut # (Auto) 8.91 10^3/uL (1.8-7.7) H 10/28/24 20:05 Lymph # (Auto) 2.3 10^3/uL (0.8-4.8) 10/28/24 20:05 Maverick # (Auto) 1.1 10^3/uL (0.2-0.9) H 10/28/24 20:05 Eos # (Auto) 0.5 10^3/uL (0.0-0.8) 10/28/24 20:05 Baso # (Auto) 0.1 10^3/uL (0.0-0.1) 10/28/24 20:05 Nucleated RBC % (auto) 0 % 10/28/24 20:05 Nucleated RBCs # 0.0 /100WBC 10/28/24 20:05 Sodium 139 mmol/L (136-145) 10/28/24 20:05 Potassium 3.8 mmol/L (3.5-5.1) 10/28/24 20:05 Chloride 101 mmol/L (98-107) 10/28/24 20:05 Carbon Dioxide 25 mmol/L (22-29) 10/28/24 20:05 Anion Gap 16.8 (5-19) 10/28/24 20:05 BUN 17 mg/dL (8-23) 10/28/24 20:05 Creatinine 1.2 mg/dL (0.7-1.2) 10/28/24 20:05 GFR Calculation 61.6 mL/min (90-130) L 10/28/24 20:05 Glucose 98 mg/dL (65-115) 10/28/24 20:05 Calculated Osmolality 290 mOsm/kg (285-295) 10/28/24 20:05 Calcium 10.1 mg/dL (8.5-10.5) 10/28/24 20:05 Total Bilirubin 0.4 mg/dL (0.15-1.2) 10/28/24 20:05 AST 29 U/L (0-40) 10/28/24 20:05 ALT 54 U/L (0-41) H 10/28/24 20:05 Alkaline Phosphatase 119 U/L (40-130) 10/28/24 20:05 Total Protein 7.9 g/dL (6.6-8.7) 10/28/24 20: Albumin 4.0 g/dL (3.5-5.2) 10/28/24 20: Globulin 3.9 g/dL (1.3-4.6) 10/28/24 20: Urine Color Yellow (Yellow) 10/28/24: Urine Appearance Cloudy (CLEAR) A 10/28/24: Urine pH 5.5 (5-7) 10/28/24:42 Ur Specific Dawson 1.025 (1.005-1.030) 10/28/24: Urine Protein 2+ (Negative) A 10/28/24: Urine Glucose (UA) 1+ (Normal) H 10/28/24 20:42 Urine Ketones Negative (Negative) 10/28/24: Urine Blood 3+ (Negative) A 10/28/24: Urine Nitrate Negative (Negative) 10/28/24: Urine Bilirubin Negative (Negative) 10/28/24:42 Urine Urobilinogen 0.2 mg/dL (Negative) 10/28/24:42 Ur Leukocyte Esterase 2+ (Negative) A 10/28/24: Urine RBC 51-100 /hpf (0-2) H 10/28/24 20:42 Urine WBC >100 /hpf (0-5) H 10/28/24 20:42 Ur Squamous Epith Cells 0-5 /hpf (0-5) 10/28/24: Amorphous Sediment Not Reportable 10/28/24: Urine Bacteria 4+ /hpf (NONE) H 10/28/24 20:42 Hyaline Casts 12.38 /lpf 10/28/24 20:42 No radiology studies performed this visit Discharge Plan Discharge Patient Disposition: Home Clinical Impression: UTI (urinary tract infection) due to urinary indwelling Walsh catheter Qualifiers: Indwelling urinary catheter type: indwelling urethral catheter Encounter type: initial encounter Qualified Code(s): T83.511A - Infection and inflammatory reaction due to indwelling urethral catheter, initial encounter Condition: Stable Prescriptions: New ciprofloxacin HCl [Cipro] 500 mg tablet 500 mg PO Q12H Qty: 14 0RF No Action cholecalciferol (vitamin D3) 25 mcg (1,000 unit) capsule 25 mcg PO DAILY primidone 50 mg tablet 50 mg PO BEDTIME ascorbic acid (vitamin C) 1,000 mg tablet 2 g PO DAILY (DME) CPAP See Rx Instructions .ROUTE .MEDSUPPLY Qty: 1 0RF Rx Instructions: As directed clonazepam 0.5 mg tablet 0.5 mg PO BID fluoxetine [Prozac] 40 mg capsule 40 mg PO BID 21 Days Qty: 42 7RF (DME) DME: Walker Unit See Rx Instructions .ROUTE .MEDSUPPLY Qty: 1 0RF Rx Instructions: Code E0143 and E0156 walker 4 wheels and seat (DME) Shower chair See Rx Instructions .Route .MEDSUPPLY Qty: 1 0RF Rx Instructions: As directed allopurinol 300 mg tablet 300 mg PO BID 21 Days Qty: 42 7RF rosuvastatin [Crestor] 10 mg tablet 10 mg PO DAILY Qty: 21 7RF Farxiga 10 mg tablet 10 mg PO QAM Qty: 21 7RF amlodipine 10 mg tablet 10 mg PO DAILY Qty: 90 3RF tamsulosin 0.4 mg capsule 0.4 mg PO QPM isosorbide mononitrate 30 mg tablet extended release 24 hr 30 mg PO DAILY tramadol 50 mg tablet 50 mg PO PRN PRN (Reason: Pain) albuterol sulfate 90 mcg/actuation HFA aerosol inhaler 2 puff INHALATION Q6H PRN (Reason: Shortness Of Breath) baclofen 10 mg tablet 10 mg PO BID methylprednisolone [Medrol (Damir)] 4 mg tablets,dose pack See Rx Instructions .ROUTE .COMPLEX Qty: 21 0RF Rx Instructions: orally per package directions Eliquis 5 mg tablet 5 mg PO BID oxybutynin chloride 5 mg tablet extended release 24hr 5 mg PO DAILY nystatin [Klayesta] 100,000 unit/gram powder 1 applic TOPICAL BID PRN (Reason: Skin Irritation) quetiapine 50 mg tablet 50 mg PO DAILY Discharge Orders: Discharge ED (Routine); Ordered 10/28/24 Ordered By: Key Jones Patient Instructions: Catheter-associated Urinary Tract Infection (ED) Activity Restrictions/Additional Instructions: As we discussed, we will place you on antibiotics for his urinary tract infection. Case management referral placed for follow-up with urology. He needs to return to the emergency department for onset of flank or back pain, fevers, repetitive episodes of vomiting, inability to tolerate his antibiotics, or any other concerns you may have. Print Language: [place] Coding Level of Care Code ED Cleaner Window for Jamaal Morales
[2024-10-28 20:11] LABS: Basophils # 0.1 10^3/uL (0.0-0.1); Basophils % 0.8 %; Eosinophils # 0.5 10^3/uL (0.0-0.8); Eosinophils % 4.2 %; Hematocrit 56.1 % (37-53); Lymphocytes # 2.3 10^3/uL (0.8-4.8); Lymphocytes % 17.4 %; Mean Corpuscular HGB Conc 33.2 g/dL (30-55); Mean Corpuscular Hemoglobin 29.8 pg (27-33); Mean Corpuscular Volume 89.9 fl (82-101); Monocytes # 1.1 10^3/uL (0.2-0.9); Monocytes % 8.3 %; Neutrophils # 8.91 10^3/uL (1.8-7.7); Neutrophils % 68.7 %; Nucleated Red Blood Cells % 0 %; Platelet Count 172 10^3/cmm (157-399); Red Blood Count 6.24 10^6/uL (3.85-5.65); Red Cell Distribution Width 14.7 % (12.1-15.1); White Blood Count 12.96 10^3/uL (3.29-11.43)
[2024-10-28 20:30] LABS: Alanine Aminotransferase 54 U/L (0-41); Alkaline Phosphatase 119 U/L (40-130); Anion Gap 16.8 (5-19); Aspartate Amino Transferase 29 U/L (0-40); Blood Urea Nitrogen 17 mg/dL (8-23); Calcium 10.1 mg/dL (8.5-10.5); Carbon Dioxide 25 mmol/L (22-29); Chloride 101 mmol/L (98-107); Creatinine Clr Calc Pharmacy 76.4757; Globulin 3.9 g/dL (1.3-4.6); Glomerular Filtration Rate 61.6 mL/min (90-130); Glucose 98 mg/dL (65-115); Osmolality Calculated 290 mOsm/kg (285-295); Potassium 3.8 mmol/L (3.5-5.1); Sodium 139 mmol/L (136-145); Total Bilirubin 0.4 mg/dL (0.15-1.2); Total Protein 7.9 g/dL (6.6-8.7)
[2024-10-28 20:49] LABS: Bilirubin Urine Negative (Negative); Blood Urine 3+ (Negative); Glucose Urine UA 1+ (Normal); Ketones Urine Negative (Negative); Leukocyte Esterase Urine 2+ (Negative); Nitrate Urine Negative (Negative); Protein Urine 2+ (Negative); Specific Gravity, Urine 1.025 (1.005-1.030); Urine Appearance Cloudy (CLEAR); Urine Color Yellow (Yellow); Urobilinogen Urine 0.2 mg/dL (Negative); pH Urine 5.5 (5-7)
[2024-10-28 20:51] LABS: Add Urine Microscopic? YES; Bacteria Urine 4+ /hpf; Hyaline Casts Urine 12.38 /lpf; RBC Urine 51-100 /hpf (0-2); Squamous Epithelial Cell Urine 0-5 /hpf (0-5); WBC Urine >100 /hpf (0-5)
[2024-10-28 21:05] VITALS: BP 138/92
[2024-10-28 21:06] LABS: UA Slide Review UA Slide Review Perf
[2024-10-28 21:07] LABS: Add Urine Culture? Yes
[2024-10-28] MEDS: cefTRIAXone 1,000 MG in water for injection-sterile 2.1 ML 2.1 MG IM (21:40)
[2024-10-28 21:47] VITALS: BP 159/85; PULSE 86; RESP 16; O2SAT 98
--- NOTE | 2024-10-29 10:44 | DCPLANNER ---
faxed referral packet to urology [facility]
== END 2024-10-28 21:48 | disposition home or self-care (01) ==
PROVIDERS: Emergency Provider Physician Assistant
DX: T83.592A Infection and inflammatory reaction due to indwelling ureteral stent, initial encounter (principal); N39.0 Urinary tract infection, site not specified; N31.9 Neuromuscular dysfunction of bladder, unspecified; G47.33 Obstructive sleep apnea (adult) (pediatric); N18.2 Chronic kidney disease, stage 2 (mild); E78.2 Mixed hyperlipidemia; I12.9 Hypertensive chronic kidney disease with stage 1 through stage 4 chronic kidney disease, or unspecified chronic kidney disease; M10.9 Gout, unspecified; Z86.718 Personal history of other venous thrombosis and embolism; Z86.73 Personal history of transient ischemic attack (TIA), and cerebral infarction without residual deficits; Z79.899 Other long term (current) drug therapy; Z79.01 Long term (current) use of anticoagulants; T83.511A Infection and inflammatory reaction due to indwelling urethral catheter, initial encounter
CPT/HCPCS: 36415; 80053; 81001; 85025; 87077; 87086; 87186; 96372; 99284; J0696